=== PATIENT | male | born 1940 | race Caucasian/White ===

== ENCOUNTER 2017-03-17 09:24 | Inpatient (IN) | payer OTHER ==
[~2017-03-17] VITALS: Ht 170.2 cm; Wt 83.4 kg
[2017-03-17 09:58] LABS: Basophils % (auto) 0.2 % (0.0-2.0); Eosinophils # (auto) 0 uL; Hematocrit 32.1 % (41.0-53.0); Nucleated Red Blood Cells % 0.2 %; Platelet Count (auto) 178 10^3/uL (140-450); Red Cell Distribution Width 15.3 % (11.8-14.3)
[2017-03-17 10:02] LABS: Basophils # (auto) 0.2 uL; Hemoglobin 10.7 g/dL (13.5-17.5); Lymphocytes # (auto) 49.8 uL; Mean Corpuscular Hemoglobin 29.4 pg (28.0-32.0); Mean Corpuscular Hgb Conc. 33.5 g/dL (32.0-36.0); Mean Corpuscular Volume 87.9 fL (80.0-100.0); Monocytes # (auto) 1.3 uL; Monocytes % (auto) 2.1 % (0.0-12.0); Neutrophils # (auto) 12.4 uL; Neutrophils % (auto) 19.4 % (37.0-80.0); Red Blood Cells 3.65 10^6/uL (4.5-5.90)
[2017-03-17 10:09] LABS: Lymphocytes % (auto) 78.3 % (10.0-50.0)
[2017-03-17 10:12] LABS: White Blood Cell 63.6 10^3/uL (4.4-10.8)
[2017-03-17] MEDS ORDERED: IPRATROPIUM BROM 0.5 MG/2.5ML INH SOL NEB ONE ×2 (10:15→11:00)
[2017-03-17] MEDS ORDERED: ALBUTEROL SULF 2.5 MG/0.5ML(0.5%) NEB SOLN NEB ONE ×2 (10:15→11:00)
[2017-03-17 10:22] LABS: Albumin 3.2 g/dL (3.4-5.0); Calcium 7.7 mg/dL (8.5-10.1); Potassium 4.7 mmol/L (3.5-5.1); Total Protein 8.9 g/dL (6.4-8.2)
[2017-03-17] MEDS ORDERED: SODIUM CHLORIDE 0.9% 1,000 ML IV ONE (10:47)
[2017-03-17] MEDS ORDERED: methylPREDNISolone SOD SUCC 125 MG/2 ML VL IV ONE (11:00)
[2017-03-17 12:02] LABS: INR 1.16 (0.9-1.15); Partial Thromboplastin Time 33.8 sec (22.64-33.71); Prothrombin Time 12.7 sec (9.37-12.3)
[2017-03-17 12:05] LABS: Lactic Acid w/Reflex 2.3 mmol/L (0.4-2.0)
[2017-03-17 12:09] LABS: Bilirubin, Total 0.8 mg/dL (0.2-1.0)
[2017-03-17] MEDS ORDERED: PIPERACILLIN-TAZO 4.5GM 50 ML IV ONE (12:15)
[2017-03-17] MEDS ORDERED: SODIUM CHLORIDE 0.9% 1,000 ML IV SCH (12:38)
[2017-03-17] MEDS ORDERED: ACETAMINOPHEN 500 MG TAB PO PRN (12:45)
[2017-03-17] MEDS ORDERED: OSELTAMIVIR 75 MG CAP PO ONE (12:45)
[2017-03-17] MEDS ORDERED: LACTULOSE 20Gm/30ML SOLN PO PRN (12:45)
[2017-03-17] MEDS ORDERED: DEXTROSE (50%) 50ML SYRG IV PRN (12:45)
[2017-03-17] MEDS ORDERED: PANTOPRAZOLE 40 MG/10 ML VIAL IV ONE (12:45)
[2017-03-17] MEDS ORDERED: PIPERACILLIN-TAZOB 3.375GM 50 ML IV ONE (12:45)
[2017-03-17] MEDS ORDERED: AZITHROMYCIN 500MG/ 250ML 250 ML IV ONE (12:45)
[2017-03-17] MEDS ORDERED: TEMAZEPAM 15 MG CAP PO PRN (12:45)
[2017-03-17] MEDS ORDERED: LORazepam 0.5 MG TAB PO PRN (12:45)
[2017-03-17] MEDS ORDERED: NITROGLYCERIN 0.4 MG SL TAB SL PRN (12:45)
[2017-03-17] MEDS ORDERED: ENOXAPARIN SOD 80 MG/0.8ML SYRINGE SC ONE (12:45)
[2017-03-17] MEDS ORDERED: MORPHINE SULF INJ 2 MG/ML SYRINGE 1ML IV PRN (13:45)
[2017-03-17] MEDS: LINEZOLID 600MG/300ML 300 ML IV SCH ×2 (14:34→22:15)
[2017-03-17] MEDS: PROMETHAZINE HCL 25 MG/ML 1ML IV PRN (15:13)
[2017-03-17] MEDS: MORPHINE SULF INJ 2 MG/ML SYRINGE 1ML IV PRN ×2 (15:14→20:30)
[2017-03-17 16:24] LABS: Urine Amorphous Crystal FEW /hpf (None Seen); Urine Bacteria NONE SEEN /hpf (None Seen); Urine Blood 1+ /uL (Negative); Urine Hyaline Cast MOD /lpf (0 - 2); Urine Mucus FEW (None Seen); Urine Specific Gravity 1.022 (1.001-1.035); Urine WBC 7 /hpf (0 - 3)
[2017-03-17 16:39] LABS: CRP High Sensitivity 34.95 mg/dL (< 0.3)
[2017-03-17] MEDS: HYDROcodone-ACET 5/325MG TAB PO PRN (16:51)
[2017-03-17] MEDS: SODIUM CHLORIDE 0.9% 1,000 ML IV SCH (17:09)
[2017-03-17] MEDS: PIPERACILLIN-TAZOB 2.25GM 50 ML IV SCH (18:25)
[2017-03-17] MEDS: ACCU-CHEK COMFORT CURVE STRIP VI SCH (18:32)
[2017-03-17] MEDS: IPRATROPIUM BROM 0.5 MG/2.5ML INH SOL NEB SCH (18:53)
[2017-03-17] MEDS: ALBUTEROL SULF 2.5 MG/0.5ML(0.5%) NEB SOLN NEB SCH (18:54)
[2017-03-17 20:57] VITALS: BP 113/64
[2017-03-17] MEDS ORDERED: OSELTAMIVIR 75 MG CAP PO SCH (22:00)
[2017-03-18] MEDS: ALBUTEROL SULF 2.5 MG/0.5ML(0.5%) NEB SOLN NEB SCH ×4 (00:12→18:14)
[2017-03-18] MEDS: IPRATROPIUM BROM 0.5 MG/2.5ML INH SOL NEB SCH ×4 (00:12→18:14)
[2017-03-18] MEDS: PIPERACILLIN-TAZOB 2.25GM 50 ML IV SCH ×4 (00:14→17:30)
[2017-03-18] MEDS: ACCU-CHEK COMFORT CURVE STRIP VI SCH ×4 (00:14→17:30)
[2017-03-18] MEDS: MORPHINE SULF INJ 2 MG/ML SYRINGE 1ML IV PRN ×3 (00:36→21:11)
[2017-03-18] MEDS: HYDROcodone-ACET 5/325MG TAB PO PRN (00:56)
[2017-03-18] MEDS ORDERED: DIGOXIN (250MCG/ML) 2 ML AMPULE IV ONE ×2 (02:30→14:30)
[2017-03-18] MEDS: SODIUM CHLORIDE 0.9% 1,000 ML IV SCH ×3 (02:37→21:46)
[2017-03-18] MEDS ORDERED: AMIODARONE HCL 150 MG in D5W 5% 100 ML IV ONE (03:15)
[2017-03-18] MEDS ORDERED: AMIODARONE HCL 900 MG in DEXTROSE 500 ML IV SCH (03:20)
[2017-03-18] MEDS ORDERED: AMIODARONE HCL 900 MG IV ONE (03:20)
[2017-03-18] MEDS ORDERED: AMIODARONE HCL (50 MG/ ML) 3 ML VIAL IV ONE (03:21)
[2017-03-18 05:59] LABS: Hemoglobin 10.3 g/dL (13.5-17.5)
[2017-03-18 06:05] LABS: Hematocrit 31.5 % (41.0-53.0); Mean Corpuscular Hemoglobin 29.4 pg (28.0-32.0); Mean Corpuscular Hgb Conc. 32.8 g/dL (32.0-36.0); Mean Corpuscular Volume 89.8 fL (80.0-100.0); Platelet Count (auto) 172 10^3/uL (140-450); Red Blood Cells 3.51 10^6/uL (4.5-5.90); Red Cell Distribution Width 15.7 % (11.8-14.3)
[2017-03-18 06:12] LABS: White Blood Cell 44.7 10^3/uL (4.4-10.8)
[2017-03-18 06:13] LABS: Basophils % (manual) 0 (0.0-2.0); Blast Cells 0; Eosinophils % (manual) 0 (0-7); Metamyelocytes % 0; Myelocytes % 0; Promyelocytes % 0; Reactive Lymphocytes 0
[2017-03-18 06:26] LABS: Albumin 2.8 g/dL (3.4-5.0); Bilirubin, Total 0.7 mg/dL (0.2-1.0); Calcium 7.5 mg/dL (8.5-10.1); Potassium 4.3 mmol/L (3.5-5.1); Total Protein 8.4 g/dL (6.4-8.2)
[2017-03-18 07:00] LABS: Band Neutrophils % (manual) 6; Lymphocytes % (manual) 74 (10.0-50.0); Monocytes % (manual) 4 (0-12)
[2017-03-18] MEDS: AMIODARONE HCL 900 MG in DEXTROSE 500 ML IV SCH (09:20)
[2017-03-18] MEDS: ENOXAPARIN SOD 40 MG/0.4 ML SYRINGE SC SCH (09:47)
[2017-03-18] MEDS: PANTOPRAZOLE 40 MG TAB PO SCH (09:48)
[2017-03-18] MEDS: ASPirin 81 mg TAB PO SCH (09:49)
[2017-03-18] MEDS: AZITHROMYCIN 500MG/ 250ML 250 ML IV SCH (09:49)
[2017-03-18] MEDS: LINEZOLID 600MG/300ML 300 ML IV SCH ×2 (09:49→21:51)
[2017-03-18] MEDS ORDERED: OSELTAMIVIR 30 MG CAP PO SCH (10:00)
[2017-03-18] MEDS ORDERED: ASPI81TA27 PO (15:01)
[2017-03-18] MEDS ORDERED: CITA10TA70 PO (15:01)
[2017-03-18] MEDS ORDERED: SIMV-13 PO (15:01)
[2017-03-18] MEDS ORDERED: TAMS0.4C36 PO (15:01)
[2017-03-18] MEDS ORDERED: FENO160T8 PO (15:01)
[2017-03-18] MEDS ORDERED: TRAM50TA2 PO (15:01)
[2017-03-18] MEDS ORDERED: LISI-646 PO (15:01)
[2017-03-18] MEDS ORDERED: LEVO200T45 PO (15:01)
[2017-03-19] MEDS: IPRATROPIUM BROM 0.5 MG/2.5ML INH SOL NEB SCH ×5 (00:01→23:59)
[2017-03-19] MEDS: ALBUTEROL SULF 2.5 MG/0.5ML(0.5%) NEB SOLN NEB SCH ×4 (00:01→19:45)
[2017-03-19] MEDS: ACCU-CHEK COMFORT CURVE STRIP VI SCH ×4 (00:44→18:29)
[2017-03-19] MEDS: PIPERACILLIN-TAZOB 2.25GM 50 ML IV SCH ×5 (00:48→23:59)
[2017-03-19 06:39] LABS: Hemoglobin 10.6 g/dL (13.5-17.5)
[2017-03-19 06:42] LABS: Hematocrit 31.5 % (41.0-53.0); Mean Corpuscular Hemoglobin 29.8 pg (28.0-32.0); Mean Corpuscular Hgb Conc. 33.7 g/dL (32.0-36.0); Mean Corpuscular Volume 88.5 fL (80.0-100.0); Platelet Count (auto) 212 10^3/uL (140-450); Red Blood Cells 3.56 10^6/uL (4.5-5.90); Red Cell Distribution Width 15.7 % (11.8-14.3)
[2017-03-19 06:44] LABS: White Blood Cell 32.4 10^3/uL (4.4-10.8)
[2017-03-19 06:45] LABS: Basophils % (manual) 0 (0.0-2.0); Blast Cells 0; Eosinophils % (manual) 0 (0-7); Metamyelocytes % 0; Myelocytes % 0; Promyelocytes % 0; Reactive Lymphocytes 0
[2017-03-19 06:58] LABS: BUN/Creatinine Ratio 32.9; Calcium 7.8 mg/dL (8.5-10.1); Potassium 4.5 mmol/L (3.5-5.1)
[2017-03-19 08:38] LABS: Band Neutrophils % (manual) 4; Lymphocytes % (manual) 75 (10.0-50.0); Monocytes % (manual) 1 (0-12)
[2017-03-19] MEDS: SODIUM CHLORIDE 0.9% 1,000 ML IV SCH ×2 (09:14→21:31)
[2017-03-19] MEDS: AMIODARONE HCL 900 MG in DEXTROSE 500 ML IV SCH (09:29)
[2017-03-19] MEDS: PANTOPRAZOLE 40 MG TAB PO SCH (10:01)
[2017-03-19] MEDS: AZITHROMYCIN 500MG/ 250ML 250 ML IV SCH (10:01)
[2017-03-19] MEDS: ENOXAPARIN SOD 40 MG/0.4 ML SYRINGE SC SCH (10:01)
[2017-03-19] MEDS: ASPirin 81 mg TAB PO SCH (10:01)
[2017-03-19] MEDS: LINEZOLID 600MG/300ML 300 ML IV SCH ×2 (10:20→22:01)
[2017-03-19] MEDS: PROMETHAZINE HCL 25 MG/ML 1ML IV PRN (13:30)
[2017-03-19] MEDS: MORPHINE SULF INJ 2 MG/ML SYRINGE 1ML IV PRN ×2 (13:30→22:06)
[2017-03-19] MEDS ORDERED: MORPHINE SULF INJ 2 MG/ML SYRINGE 1ML IV PRN (15:00)
[2017-03-19] MEDS: AMIODARONE HCL 200 MG TAB PO SCH ×2 (16:06→22:01)
[2017-03-19 19:30] VITALS: BP 128/69
[2017-03-20] MEDS: ACCU-CHEK COMFORT CURVE STRIP VI SCH ×4 (00:01→18:15)
[2017-03-20] MEDS: IPRATROPIUM BROM 0.5 MG/2.5ML INH SOL NEB SCH ×3 (00:50→18:00)
[2017-03-20] MEDS: ALBUTEROL SULF 2.5 MG/0.5ML(0.5%) NEB SOLN NEB SCH ×4 (00:50→18:00)
[2017-03-20] MEDS: SODIUM CHLORIDE 0.9% 1,000 ML IV SCH ×2 (04:40→15:00)
[2017-03-20 04:54] VITALS: BP 134/69
[2017-03-20] MEDS: PIPERACILLIN-TAZOB 2.25GM 50 ML IV SCH (05:20)
[2017-03-20 07:19] LABS: BUN/Creatinine Ratio 25.2; Calcium 7.7 mg/dL (8.5-10.1); Potassium 4.4 mmol/L (3.5-5.1)
[2017-03-20 08:00] VITALS: BP 135/78
[2017-03-20] MEDS: LINEZOLID 600MG/300ML 300 ML IV SCH ×2 (09:00→21:35)
[2017-03-20] MEDS: AMIODARONE HCL 200 MG TAB PO SCH ×2 (09:01→21:36)
[2017-03-20] MEDS: PANTOPRAZOLE 40 MG TAB PO SCH (09:01)
[2017-03-20] MEDS: ASPirin 81 mg TAB PO SCH (09:01)
[2017-03-20] MEDS: ENOXAPARIN SOD 40 MG/0.4 ML SYRINGE SC SCH (09:02)
[2017-03-20 09:18] VITALS: BP 135/78
[2017-03-20] MEDS: AZITHROMYCIN 500MG/ 250ML 250 ML IV SCH (10:57)
[2017-03-20 12:21] VITALS: BP 138/74
[2017-03-20] MEDS: PIPERACILLIN-TAZOB 3.375GM 50 ML IV SCH ×2 (13:18→18:14)
[2017-03-20 17:28] VITALS: BP 133/74
[2017-03-20 22:32] VITALS: BP 119/68
[2017-03-21] VITALS (8 sets, daily range): BP systolic 109–135; BP diastolic 54–75
[2017-03-21] MEDS: PIPERACILLIN-TAZOB 3.375GM 50 ML IV SCH ×5 (00:02→23:58)
[2017-03-21] MEDS: ACCU-CHEK COMFORT CURVE STRIP VI SCH ×5 (00:24→23:29)
[2017-03-21] MEDS: IPRATROPIUM BROM 0.5 MG/2.5ML INH SOL NEB SCH ×5 (00:48→23:36)
[2017-03-21] MEDS: ALBUTEROL SULF 2.5 MG/0.5ML(0.5%) NEB SOLN NEB SCH ×5 (00:48→23:36)
[2017-03-21] MEDS: SODIUM CHLORIDE 0.9% 1,000 ML IV SCH ×3 (05:17→21:17)
[2017-03-21 07:22] LABS: Hematocrit 32.5 % (41.0-53.0); Hemoglobin 10.4 g/dL (13.5-17.5); Mean Corpuscular Hemoglobin 28.8 pg (28.0-32.0); Mean Corpuscular Hgb Conc. 31.9 g/dL (32.0-36.0); Mean Corpuscular Volume 90.4 fL (80.0-100.0); Platelet Count (auto) 302 10^3/uL (140-450)
[2017-03-21 07:27] LABS: BUN/Creatinine Ratio 18.7; Calcium 7.7 mg/dL (8.5-10.1); Magnesium 2.9 mg/dL (1.6-2.6); Potassium 4.9 mmol/L (3.5-5.1)
[2017-03-21 07:33] LABS: White Blood Cell 46.2 10^3/uL (4.4-10.8)
[2017-03-21 07:35] LABS: Band Neutrophils % (manual) 0; Basophils % (manual) 0 (0.0-2.0); Blast Cells 0; Eosinophils % (manual) 0 (0-7); Metamyelocytes % 0; Myelocytes % 0; Promyelocytes % 0; Reactive Lymphocytes 0
[2017-03-21] MEDS: AMIODARONE HCL 200 MG TAB PO SCH ×2 (09:09→21:16)
[2017-03-21] MEDS: PANTOPRAZOLE 40 MG TAB PO SCH (09:09)
[2017-03-21] MEDS: ENOXAPARIN SOD 40 MG/0.4 ML SYRINGE SC SCH (09:10)
[2017-03-21] MEDS: ASPirin 81 mg TAB PO SCH (09:10)
[2017-03-21] MEDS: LINEZOLID 600MG/300ML 300 ML IV SCH ×2 (09:11→21:15)
[2017-03-21] MEDS: AZITHROMYCIN 500MG/ 250ML 250 ML IV SCH (10:59)
[2017-03-21 11:11] LABS: Lymphocytes % (manual) 76 (10.0-50.0); Monocytes % (manual) 1 (0-12)
[2017-03-21] MEDS ORDERED: LORazepam 2MG/ML-1ML VIAL IV PRN (19:00)
[2017-03-21] MEDS ORDERED: ATORVASTATIN 20 MG TAB PO SCH (22:00)
[2017-03-22] MEDS: ALBUTEROL SULF 2.5 MG/0.5ML(0.5%) NEB SOLN NEB PRN ×2 (02:40→13:15)
[2017-03-22 05:00] VITALS: BP 132/72
[2017-03-22] MEDS: PIPERACILLIN-TAZOB 3.375GM 50 ML IV SCH ×2 (05:33→12:00)
[2017-03-22] MEDS: ACCU-CHEK COMFORT CURVE STRIP VI SCH ×2 (05:39→12:00)
[2017-03-22] MEDS: SODIUM CHLORIDE 0.9% 1,000 ML IV SCH (06:35)
[2017-03-22] MEDS: ALBUTEROL SULF 2.5 MG/0.5ML(0.5%) NEB SOLN NEB SCH ×2 (06:35→10:01)
[2017-03-22] MEDS: IPRATROPIUM BROM 0.5 MG/2.5ML INH SOL NEB SCH ×2 (06:35→10:01)
[2017-03-22 08:00] VITALS: BP 140/72
[2017-03-22 08:28] VITALS: BP 140/72
[2017-03-22] MEDS: LINEZOLID 600MG/300ML 300 ML IV SCH (10:00)
[2017-03-22] MEDS: AMIODARONE HCL 200 MG TAB PO SCH (10:27)
[2017-03-22] MEDS: AZITHROMYCIN 500MG/ 250ML 250 ML IV SCH (10:27)
[2017-03-22] MEDS: PANTOPRAZOLE 40 MG TAB PO SCH (10:27)
[2017-03-22] MEDS: ENOXAPARIN SOD 40 MG/0.4 ML SYRINGE SC SCH (10:27)
[2017-03-22] MEDS: ASPirin 81 mg TAB PO SCH (10:27)
[2017-03-22 11:48] VITALS: BP 132/66
[2017-03-22 13:59] VITALS: BP 140/72
== END 2017-03-22 15:30 | disposition home or self-care (01) | DRG 871 ==
LOC: ER 09:24 → EDBD 09:24 → TELE 09:25 → TELE-EAST 03-19 18:22
PROVIDERS: ADMIT Internal Medicine; ATTEND Internal Medicine
DX: A41.9 Sepsis, unspecified organism (principal); J18.9 Pneumonia, unspecified organism; J96.01 Acute respiratory failure with hypoxia; N17.0 Acute kidney failure with tubular necrosis; G93.41 Metabolic encephalopathy; C91.10 Chronic lymphocytic leukemia of B-cell type not having achieved remission; E11.21 Type 2 diabetes mellitus with diabetic nephropathy; I48.91 Unspecified atrial fibrillation; E87.2 Acidosis; J44.0 Chronic obstructive pulmonary disease with (acute) lower respiratory infection; J44.1 Chronic obstructive pulmonary disease with (acute) exacerbation; E87.1 Hypo-osmolality and hyponatremia; E11.22 Type 2 diabetes mellitus with diabetic chronic kidney disease; D64.9 Anemia, unspecified; N32.89 Other specified disorders of bladder; K57.30 Diverticulosis of large intestine without perforation or abscess without bleeding; E78.5 Hyperlipidemia, unspecified; F41.9 Anxiety disorder, unspecified; F32.9 Major depressive disorder, single episode, unspecified; I12.9 Hypertensive chronic kidney disease with stage 1 through stage 4 chronic kidney disease, or unspecified chronic kidney disease; N18.9 Chronic kidney disease, unspecified; Z79.82 Long term (current) use of aspirin; Z79.899 Other long term (current) drug therapy; Z87.820 Personal history of traumatic brain injury; Z87.891 Personal history of nicotine dependence
CPT/HCPCS: 36415; 36600; 70450; 71045; 74176; 76775; 78582; 80048; 80053; 80061; 81001; 82150; 82550; 82805; 82962; 83036; 83605; 83690; 83735; 83880; 84443; 84484; 85007; 85025; 85027; 85379; 85610; 85652; 85730; 86141; 87040; 87400; 93005; 93306; 93970; 94640; 94761; 96361; 96374; C9113; J2543; J7060

== ENCOUNTER 2023-09-15 08:40 | Inpatient (IN) | payer OTHER ==
[~2023-09-15] VITALS: Ht 170.2 cm; Wt 95.7 kg
[~2023-09-15 08:40] MED LIST: ASPI-543 PO; CITA10TA5 PO; FENO160T PO; LEVO200T7 PO; LISI20TA56 PO; SIMV40TA18 PO; TAMS0.4C36 PO; TRAM50TA2 PO
[2023-09-15 10:07] LABS: Hematocrit 29.2 % (41.0-53.0); Hemoglobin 9.6 g/dL (13.5-17.5); Mean Corpuscular Hemoglobin 32.5 pg (28.0-32.0); Mean Corpuscular Volume 98.6 fL (80.0-100.0); Red Blood Cells 2.97 10^6/uL (4.5-5.90); Red Cell Distribution Width 18.2 % (11.8-14.3)
[2023-09-15 10:09] LABS: Alanine Aminotransferase 14 U/L (7-40); Albumin 4.2 g/dL (3.2-4.8); Alkaline Phosphatase 65 U/L (46-116); Anion Gap 10 (5-15); Aspartate Aminotransferase 25 U/L (13-40); BUN/Creatinine Ratio 13.1 (10.0-20.0); Bilirubin, Total 1.6 mg/dL (0.2-1.0); Blood Urea Nitrogen 22 mg/dL (9-23); Calcium 9.2 mg/dL (8.5-10.1); Carbon Dioxide 23 mmol/L (20-30); Chloride 107 mmol/L (98-107); Glucose 103 mg/dL (74-106); Potassium 4.6 mmol/L (3.5-5.1); Sodium 140 mmol/L (136-145); Total Protein 5.8 g/dL (5.7-8.2)
[2023-09-15 10:13] VITALS: PULSE 123; RESP 18; O2SAT 95
[2023-09-15 10:14] LABS: Band Neutrophils % (manual) 0; Basophils % (manual) 0 (0.0-2.0); Blast Cells 0; Metamyelocytes % 0; Myelocytes % 0; Promyelocytes % 0; Reactive Lymphocytes 0
[2023-09-15] MEDS: CLINDAMYCIN 600MG IV 50 ML IV ONE (10:23)
[2023-09-15] MEDS: SODIUM CHLORIDE 0.9% 2,000 ML IV ONE (10:46)
[2023-09-15] MEDS: cefTRIAXone 1GM/50ML D5W 50 ML IV ONE (11:37)
[2023-09-15] MEDS ORDERED: MORPHINE SULFATE INJ 2 MG/ml SYRG IV PRN (12:00)
[2023-09-15] MEDS ORDERED: NITROGLYCERIN 0.4 MG SL TAB SL PRN (12:00)
[2023-09-15] MEDS ORDERED: METOPROLOL TARTRATE 25 MG TAB PO SCH (12:00)
[2023-09-15 12:19] LABS: Urine Bacteria None Seen /hpf (None Seen)
[2023-09-15 12:19] LABS: Eosinophils % (manual) 1 (0-7); Lymphocytes % (manual) 87 (10.0-50.0); Monocytes % (manual) 3 (0-12); Platelet Estimate Decreased; Smudge Cells 13 /100 WBC
[2023-09-15 12:34] LABS: Folate (Folic Acid) 8.04 ng/mL (>5.38)
[2023-09-15 12:46] LABS: Creatinine, Urine 161.49 mg/dL (30.0-125.0)
[2023-09-15 12:54] LABS: Urine Blood TRACE /uL (Negative); Urine Clarity Clear (Clear); Urine Color Yellow (Yellow); Urine Mucus FEW (None Seen); Urine Protein, UAD 1+ (Negative); Urine Specific Gravity 1.021 (1.001-1.035); Urine Urobilinogen Normal (Negative); Urine WBC 2 /hpf (0 - 3); Urine pH 5.5 (5.0-9.0)
[2023-09-15 12:56] LABS: INR 1.08 (0.9-1.15); Prothrombin Time 11.4 sec (9.3-11.8)
[2023-09-15 13:49] LABS: % Iron Saturation 34.4 % (20-55)
[2023-09-15] MEDS: CLINDAMYCIN 900MG IV 50 ML IV SCH (14:48)
[2023-09-15 16:38] LABS: Magnesium 2.1 mg/dL (1.6-2.6)
[2023-09-15] MEDS: TAMSULOSIN HYDROCHLORIDE 0.4 MG CAP PO SCH (18:07)
[2023-09-15] MEDS: FUROSEMIDE 20 MG/2 ML VIAL IV SCH (18:08)
[2023-09-15] MEDS: ATENOLOL 25 MG TAB PO ONE (18:10)
[2023-09-15 18:35] LABS: Free T3 2.06 pg/mL (2.3-4.2); Free T4 (Free Thyroxine) 1.46 ng/dL (0.89-1.76)
[2023-09-15 21:00] VITALS: BP 120/72; PULSE 120; RESP 72; TEMP 97.6; O2SAT 97
[2023-09-15 21:27] VITALS: PULSE 119
[2023-09-15] MEDS ORDERED: CARVEDILOL 12.5 MG TAB PO SCH (22:00)
[2023-09-15] MEDS: ATORVASTATIN 20 MG TAB PO SCH (22:16)
[2023-09-16] VITALS (8 sets, daily range): BP systolic 98–121; BP diastolic 51–74; PULSE 93–117; RESP 18–20; TEMP 97.2–97.8; O2SAT 93–100
[2023-09-16] MEDS ORDERED: LEVO25TA2 PO (01:13)
[2023-09-16] MEDS ORDERED: TRIA0.5O2 TOP (01:13)
[2023-09-16] MEDS ORDERED: ATOR40TA52 PO (01:13)
[2023-09-16] MEDS ORDERED: METO1TAB9 PO (01:13)
[2023-09-16] MEDS ORDERED: GABA-1308 PO (01:15)
[2023-09-16 06:04] LABS: Hemoglobin 9.2 g/dL (13.5-17.5); Mean Corpuscular Hemoglobin 32.1 pg (28.0-32.0)
[2023-09-16 06:06] LABS: Hematocrit 28.3 % (41.0-53.0); Mean Corpuscular Hgb Conc. 32.3 g/dL (32.0-36.0); Mean Corpuscular Volume 99.2 fL (80.0-100.0); Red Blood Cells 2.86 10^6/uL (4.5-5.90); Red Cell Distribution Width 18.8 % (11.8-14.3)
[2023-09-16 06:22] LABS: White Blood Cell 35.8 10^3/uL (4.4-10.8)
[2023-09-16 06:24] LABS: Band Neutrophils % (manual) 0; Basophils % (manual) 0 (0.0-2.0); Blast Cells 0; Eosinophils % (manual) 0 (0-7); Metamyelocytes % 0; Myelocytes % 0; Promyelocytes % 0; Reactive Lymphocytes 0
[2023-09-16 06:26] LABS: Alanine Aminotransferase 11 U/L (7-40); Albumin 3.9 g/dL (3.2-4.8); Alkaline Phosphatase 55 U/L (46-116); Anion Gap 7 (5-15); Aspartate Aminotransferase 24 U/L (13-40); BUN/Creatinine Ratio 10.8 (10.0-20.0); Bilirubin, Total 1.1 mg/dL (0.2-1.0); Blood Urea Nitrogen 20 mg/dL (9-23); Calcium 9.1 mg/dL (8.7-10.4); Carbon Dioxide 24 mmol/L (20-30); Chloride 106 mmol/L (98-107); Glucose 191 mg/dL (74-106); Potassium 4.9 mmol/L (3.5-5.1); Sodium 137 mmol/L (136-145)
[2023-09-16 07:05] LABS: Total Protein 5.9 g/dL (5.7-8.2)
[2023-09-16 08:35] LABS: Lymphocytes % (manual) 87 (10.0-50.0); Monocytes % (manual) 2 (0-12); Platelet Estimate Decreased
[2023-09-16] MEDS: ATENOLOL 25 MG TAB PO SCH (09:58)
[2023-09-16 16:54] LABS: Hemoglobin 9.5 g/dL (13.5-17.5)
[2023-09-16 16:55] LABS: Hematocrit 29.3 % (41.0-53.0); Mean Corpuscular Hemoglobin 32.2 pg (28.0-32.0); Mean Corpuscular Hgb Conc. 32.5 g/dL (32.0-36.0); Mean Corpuscular Volume 99.2 fL (80.0-100.0); Red Blood Cells 2.95 10^6/uL (4.5-5.90); Red Cell Distribution Width 18.3 % (11.8-14.3)
[2023-09-16 17:01] LABS: White Blood Cell 42.5 10^3/uL (4.4-10.8)
[2023-09-16 17:02] LABS: Band Neutrophils % (manual) 0; Basophils % (manual) 0 (0.0-2.0); Blast Cells 0; Metamyelocytes % 0; Myelocytes % 0; Promyelocytes % 0; Reactive Lymphocytes 0
[2023-09-16] MEDS: FUROSEMIDE 40 MG/4 ML VIAL IV SCH (17:17)
[2023-09-16 17:24] LABS: Eosinophils % (manual) 1 (0-7); Lymphocytes % (manual) 86 (10.0-50.0); Monocytes % (manual) 3 (0-12); Platelet Estimate Decreased
[2023-09-17] VITALS (7 sets, daily range): BP systolic 97–140; BP diastolic 50–85; PULSE 59–107; RESP 18–21; TEMP 97.5–98.6; O2SAT 92–100
[2023-09-17 07:12] LABS: Basophils % (auto) 0.1 % (0.0-2.0); Eosinophils # (auto) 0.1 10 ^3/uL (0-0.8); Hematocrit 28.7 % (41.0-53.0); Hemoglobin 9.3 g/dL (13.5-17.5); Monocytes # (auto) 0.9 10 ^3/uL (0-1.3); Nucleated Red Blood Cells % 0.2 %
[2023-09-17 07:14] LABS: Basophils # (auto) 0.1 10 ^3/uL (0-0.2); Eosinophils % (auto) 0.2 % (0.0-7.0); Lymphocytes # (auto) 39.9 10 ^3/uL (0.4-5.4); Mean Corpuscular Hgb Conc. 32.2 g/dL (32.0-36.0); Mean Corpuscular Volume 99.1 fL (80.0-100.0); Monocytes % (auto) 2.1 % (0.0-12.0); Neutrophils # (auto) 3.8 10 ^3/uL (1.6-8.6); Neutrophils % (auto) 8.5 % (37.0-80.0); Red Blood Cells 2.89 10^6/uL (4.5-5.90); Red Cell Distribution Width 18.3 % (11.8-14.3)
[2023-09-17 07:23] LABS: Lymphocytes % (auto) 89.1 % (10.0-50.0)
[2023-09-17 07:24] LABS: White Blood Cell 44.8 10^3/uL (4.4-10.8)
[2023-09-17 07:33] LABS: Alanine Aminotransferase 12 U/L (7-40); Alkaline Phosphatase 58 U/L (46-116); Anion Gap 8 (5-15); BUN/Creatinine Ratio 13.1 (10.0-20.0); Blood Urea Nitrogen 27 mg/dL (9-23); Calcium 9.2 mg/dL (8.5-10.1); Carbon Dioxide 25 mmol/L (20-30); Chloride 102 mmol/L (98-107); Glucose 110 mg/dL (74-106); Potassium 4.5 mmol/L (3.5-5.1); Sodium 135 mmol/L (136-145)
[2023-09-17 07:34] LABS: Albumin 4.2 g/dL (3.2-4.8); Aspartate Aminotransferase 26 U/L (13-40)
[2023-09-17 07:35] LABS: Bilirubin, Total 1.1 mg/dL (0.2-1.0); Total Protein 6.1 g/dL (5.7-8.2)
[2023-09-17] MEDS: ATENOLOL 25 MG TAB PO SCH (09:23)
[2023-09-17] MEDS: FUROSEMIDE 40 MG/4 ML VIAL IV ONE (10:32)
[2023-09-17] MEDS ORDERED: ACETAMINOPHEN 325 MG TAB PO PRN (16:45)
[2023-09-17] MEDS: HYDROcodone-ACET 5/325MG TAB PO PRN (17:51)
[2023-09-18] VITALS (9 sets, daily range): BP systolic 98–103; BP diastolic 48–66; PULSE 80–111; RESP 15–19; TEMP 97.8–98.3; O2SAT 93–99
[2023-09-18 07:38] LABS: Anion Gap 7 (5-15); Carbon Dioxide 24 mmol/L (20-30); Chloride 101 mmol/L (98-107); Potassium 4.7 mmol/L (3.5-5.1); Sodium 132 mmol/L (136-145)
[2023-09-18 07:39] LABS: Calcium 9.1 mg/dL (8.7-10.4)
[2023-09-18 07:44] LABS: Blood Urea Nitrogen 34 mg/dL (9-23); Glucose 124 mg/dL (74-106)
[2023-09-18] MEDS: FUROSEMIDE 40 MG TAB PO ONE (10:15)
[2023-09-18] MEDS: FUROSEMIDE 40 MG TAB PO SCH (18:04)
[2023-09-19] VITALS (7 sets, daily range): BP systolic 104–118; BP diastolic 5–75; PULSE 81–95; RESP 18–19; TEMP 97.3–97.9; O2SAT 94–100
[2023-09-19 07:14] LABS: Chloride 99 mmol/L (98-107); Potassium 4.8 mmol/L (3.5-5.1); Sodium 131 mmol/L (136-145)
[2023-09-19 07:15] LABS: Anion Gap 11 (5-15); Carbon Dioxide 21 mmol/L (20-30)
[2023-09-19 07:20] LABS: BUN/Creatinine Ratio 15.3 (10.0-20.0); Blood Urea Nitrogen 33 mg/dL (9-23); Glucose 117 mg/dL (74-106)
[2023-09-19] MEDS: ATENOLOL 25 MG TAB PO SCH (10:53)
[2023-09-19] MEDS: FUROSEMIDE 20 MG/2 ML VIAL IV ONE (17:17)
[2023-09-20 01:00] VITALS: BP 103/62; PULSE 93; RESP 18; TEMP 97.4; O2SAT 99
[2023-09-20 05:00] VITALS: BP 100/57; PULSE 95; RESP 17; TEMP 97.4; O2SAT 96
[2023-09-20] MEDS: FUROSEMIDE 20 MG/2 ML VIAL IV SCH (05:48)
[2023-09-20 06:53] LABS: Hematocrit 27.7 % (41.0-53.0); Hemoglobin 9.2 g/dL (13.5-17.5); Mean Corpuscular Hemoglobin 32.7 pg (28.0-32.0); Mean Corpuscular Hgb Conc. 33.4 g/dL (32.0-36.0); Mean Corpuscular Volume 98.1 fL (80.0-100.0); Red Blood Cells 2.82 10^6/uL (4.5-5.90); Red Cell Distribution Width 17.8 % (11.8-14.3)
[2023-09-20 06:57] LABS: Anion Gap 7 (5-15); Carbon Dioxide 27 mmol/L (20-30); Chloride 100 mmol/L (98-107); Potassium 4.2 mmol/L (3.5-5.1); Sodium 134 mmol/L (136-145)
[2023-09-20 06:59] LABS: Calcium 8.9 mg/dL (8.7-10.4)
[2023-09-20 07:02] LABS: Glucose 143 mg/dL (74-106)
[2023-09-20 07:04] LABS: BUN/Creatinine Ratio 16.8 (10.0-20.0); Blood Urea Nitrogen 39 mg/dL (9-23); Magnesium 2.2 mg/dL (1.6-2.6)
[2023-09-20 07:15] LABS: White Blood Cell 49.7 10^3/uL (4.4-10.8)
[2023-09-20 07:16] LABS: Band Neutrophils % (manual) 0; Basophils % (manual) 0 (0.0-2.0); Blast Cells 0; Eosinophils % (manual) 0 (0-7); Metamyelocytes % 0; Myelocytes % 0; Promyelocytes % 0; Reactive Lymphocytes 0
[2023-09-20 08:00] VITALS: PULSE 88; PULSE 89; RESP 18; O2SAT 95
[2023-09-20 08:07] LABS: Lymphocytes % (manual) 86 (10.0-50.0); Monocytes % (manual) 5 (0-12); Smudge Cells 6 /100 WBC
[2023-09-20 08:08] LABS: Platelet Estimate Markedly Decreased
[2023-09-20] MEDS ORDERED: FURO1TAB31 PO (08:46)
[2023-09-20 09:23] VITALS: BP 105/62; PULSE 88; RESP 1; TEMP 36.3; O2SAT 100
[2023-09-20 10:18] VITALS: BP 105/62; PULSE 88; RESP 18; TEMP 97.4; O2SAT 100
== END 2023-09-20 10:51 | disposition home or self-care (01) | DRG 602 ==
LOC: ER 08:40 → TELE 12:03 → TELE-CENTR 21:30
PROVIDERS: ADMIT Nurse Practitioner Family; ATTEND Internal Medicine Geriatric Medicine
DX: L03.116 Cellulitis of left lower limb (principal); I50.33 Acute on chronic diastolic (congestive) heart failure; I13.0 Hypertensive heart and chronic kidney disease with heart failure and stage 1 through stage 4 chronic kidney disease, or unspecified chronic kidney disease; N17.9 Acute kidney failure, unspecified; I48.19 Other persistent atrial fibrillation; C91.10 Chronic lymphocytic leukemia of B-cell type not having achieved remission; L03.115 Cellulitis of right lower limb; E03.9 Hypothyroidism, unspecified; N18.9 Chronic kidney disease, unspecified; E66.9 Obesity, unspecified; I87.2 Venous insufficiency (chronic) (peripheral); I07.1 Rheumatic tricuspid insufficiency; F32.A Depression, unspecified; E78.00 Pure hypercholesterolemia, unspecified; Z60.2 Problems related to living alone; Z85.828 Personal history of other malignant neoplasm of skin; Z98.42 Cataract extraction status, left eye; Z98.41 Cataract extraction status, right eye; Z68.33 Body mass index [BMI] 33.0-33.9, adult
CPT/HCPCS: 36415; 71045; 80048; 80053; 80061; 81001; 82270; 82570; 82607; 82728; 82746; 83036; 83540; 83550; 83605; 83615; 83735; 83880; 84300; 84439; 84443; 84481; 84484; 85007; 85025; 85027; 85045; 85362; 85379; 85384; 85610; 86850; 86880; 86900; 86901; 87040; 93005; 93306; 93970; 97110; 97116; 97163; 97530; G0378; J3490

== ENCOUNTER 2023-09-26 11:50 | Inpatient (IN) | payer OTHER ==
[~2023-09-26] VITALS: Ht 165.1 cm; Wt 90.0 kg
[~2023-09-26 11:50] MED LIST changes: +ATOR40TA52 PO; -FENO160T PO; +FURO1TAB31 PO; +GABA-1308 PO; +LEVO25TA2 PO; -LISI20TA56 PO; +METO1TAB9 PO; -SIMV40TA18 PO; +TRIA0.5O2 TOP
[2023-09-26] MEDS: ASPirin 81 mg TAB PO ONE (12:13)
[2023-09-26 12:34] LABS: Hematocrit 24.7 % (41.0-53.0); Hemoglobin 8.2 g/dL (13.5-17.5); Mean Corpuscular Hemoglobin 32.9 pg (28.0-32.0); Mean Corpuscular Hgb Conc. 33.2 g/dL (32.0-36.0); Mean Corpuscular Volume 99.2 fL (80.0-100.0); Red Blood Cells 2.49 10^6/uL (4.5-5.90); Red Cell Distribution Width 18.8 % (11.8-14.3); White Blood Cell 22.3 10^3/uL (4.4-10.8)
[2023-09-26 12:39] LABS: Basophils % (manual) 0 (0.0-2.0); Blast Cells 0; Eosinophils % (manual) 0 (0-7); Metamyelocytes % 0; Myelocytes % 0; Promyelocytes % 0
[2023-09-26] MEDS: NOREPINEPHRINE 8 MG/250ML KIT 250 ML IV SCH (12:40)
[2023-09-26] MEDS: SODIUM CHLORIDE 0.9% 1,000 ML IV ONE (12:40)
[2023-09-26 12:41] LABS: Chloride 104 mmol/L (98-107); Potassium 4.2 mmol/L (3.5-5.1); Sodium 136 mmol/L (136-145)
[2023-09-26 12:42] LABS: Anion Gap 7 (5-15); Calcium 8.9 mg/dL (8.7-10.4); Carbon Dioxide 25 mmol/L (20-30)
[2023-09-26 12:47] LABS: BUN/Creatinine Ratio 23.3 (10.0-20.0); Blood Urea Nitrogen 47 mg/dL (9-23); Glucose 127 mg/dL (74-106)
[2023-09-26 12:48] LABS: Magnesium 2.2 mg/dL (1.6-2.6)
[2023-09-26] MEDS: NOREPINEPHRINE 8 MG/250ML KIT 250 ML IV ONE (12:55)
[2023-09-26 12:59] LABS: Band Neutrophils % (manual) 1; Lymphocytes % (manual) 84 (10.0-50.0); Monocytes % (manual) 3 (0-12); Reactive Lymphocytes 2
[2023-09-26 13:00] LABS: Anisocytosis Slight; Platelet Estimate Markedly Decreased
[2023-09-26] MEDS: FUROSEMIDE 20 MG/2 ML VIAL IV ONE (13:00)
[2023-09-26] MEDS: cefTRIAXone 1GM/50ML D5W 50 ML IV ONE (13:45)
[2023-09-26] MEDS: VANCOMYCIN 1GM/200ML 200 ML IV ONE (14:44)
[2023-09-26] MEDS ORDERED: DOCUSATE SOD 100 MG CAP PO PRN (15:00)
[2023-09-26] MEDS ORDERED: ACETAMINOPHEN 325 MG TAB PO PRN (15:00)
[2023-09-26] MEDS ORDERED: ONDANSETRON HCL 4 MG/2 ML VIAL IV PRN (15:00)
[2023-09-26] MEDS ORDERED: HYDROmorphone HCL 2 MG/ML VL/or syr IV PRN (15:00)
[2023-09-26] MEDS: PIPERACILLIN-TAZOB 3.375GM 100 ML IV SCH (15:57)
[2023-09-26] MEDS: TAMSULOSIN HYDROCHLORIDE 0.4 MG CAP PO SCH (18:16)
[2023-09-26 19:56] LABS: Urine Bacteria None Seen /hpf (None Seen)
[2023-09-26 20:04] LABS: Urine Blood Negative /uL (Negative); Urine Clarity Clear (Clear); Urine Color Light-Yellow (Yellow); Urine Protein, UAD Negative (Negative); Urine Specific Gravity 1.012 (1.001-1.035); Urine Urobilinogen Normal (Negative); Urine WBC 2 /hpf (0 - 3)
[2023-09-26 20:13] LABS: Creatinine, Urine 55.3 mg/dL (30.0-125.0)
[2023-09-26] MEDS: FUROSEMIDE 40 MG/4 ML VIAL IV SCH (21:26)
[2023-09-26] MEDS: SODIUM CHLOR 0.9% PF (SALINE LOCK) 10ML VIAL/SYR IV SCH (21:26)
[2023-09-26] MEDS: ATORVASTATIN 20 MG TAB PO SCH (21:27)
[2023-09-27] VITALS (64 sets, daily range): BP systolic 78–130; BP diastolic 43–92; PULSE 84–116; RESP 14–31; TEMP 97.2–98.1; O2SAT 91–99
[2023-09-27] MEDS: LEVOTHYROXINE SODIUM 25 MCG TAB PO SCH (09:45)
[2023-09-27] MEDS: CITALOPRAM HYDROBR 20 MG TAB PO SCH (09:46)
[2023-09-27] MEDS ORDERED: ASPirin-EC 81 mg tab PO SCH (10:00)
[2023-09-27 10:07] LABS: Hematocrit 27.7 % (41.0-53.0); Red Blood Cells 2.74 10^6/uL (4.5-5.90)
[2023-09-27 10:10] LABS: Hemoglobin 8.9 g/dL (13.5-17.5); Mean Corpuscular Hemoglobin 32.5 pg (28.0-32.0); Mean Corpuscular Hgb Conc. 32.2 g/dL (32.0-36.0); Mean Corpuscular Volume 101.1 fL (80.0-100.0); Red Cell Distribution Width 18.6 % (11.8-14.3)
[2023-09-27 10:18] LABS: INR 1.11 (0.9-1.15); Partial Thromboplastin Time 25.7 SEC (24.5-34.5); Prothrombin Time 11.7 sec (9.3-11.8)
[2023-09-27 10:22] LABS: Basophils % (manual) 0 (0.0-2.0); Blast Cells 0; Eosinophils % (manual) 0 (0-7); Metamyelocytes % 0; Myelocytes % 0; Promyelocytes % 0; White Blood Cell 38.1 10^3/uL (4.4-10.8)
[2023-09-27 10:32] LABS: Alanine Aminotransferase 16 U/L (7-40); Albumin 4.3 g/dL (3.2-4.8); Alkaline Phosphatase 51 U/L (46-116); Anion Gap 8 (5-15); Aspartate Aminotransferase 23 U/L (13-40); BUN/Creatinine Ratio 17.7 (10.0-20.0); Carbon Dioxide 23 mmol/L (20-30); Chloride 106 mmol/L (98-107); Glucose 164 mg/dL (74-106); Magnesium 2.1 mg/dL (1.6-2.6); Potassium 4.6 mmol/L (3.5-5.1); Sodium 137 mmol/L (136-145); Total Protein 6.2 g/dL (5.7-8.2)
[2023-09-27 10:39] LABS: Blood Urea Nitrogen 37 mg/dL (9-23)
[2023-09-27 12:25] LABS: Band Neutrophils % (manual) 1; Lymphocytes % (manual) 86 (10.0-50.0); Monocytes % (manual) 3 (0-12); Reactive Lymphocytes 2
[2023-09-27 12:26] LABS: Anisocytosis Slight; Macrocytosis Slight; Platelet Estimate Markedly Decreased
[2023-09-27] MEDS: DOPamine 1600MCG/ML D5W 250 ML IV SCH (15:54)
[2023-09-27] MEDS: LIDOCAINE 1% (LOCAL ANESTH.) PF 5ml SDV ID ONE (16:57)
[2023-09-27] MEDS: FAMOTIDINE 20 MG TAB PO SCH (18:10)
[2023-09-27] MEDS: SODIUM CHLOR 0.9% PF (SALINE LOCK) 10ML VIAL/SYR IV SCH (22:00)
[2023-09-28] VITALS (93 sets, daily range): BP systolic 84–127; BP diastolic 34–81; PULSE 89–129; RESP 14–28; TEMP 97.4–97.9; O2SAT 90–100
[2023-09-28] MEDS: HYDROcodone-ACET 5/325MG TAB PO PRN (03:03)
[2023-09-28 04:09] LABS: Hematocrit 24.7 % (41.0-53.0); Hemoglobin 8.4 g/dL (13.5-17.5); Mean Corpuscular Hgb Conc. 33.9 g/dL (32.0-36.0); Red Cell Distribution Width 18.3 % (11.8-14.3)
[2023-09-28 04:12] LABS: Mean Corpuscular Hemoglobin 32.9 pg (28.0-32.0); Red Blood Cells 2.55 10^6/uL (4.5-5.90); White Blood Cell 27.4 10^3/uL (4.4-10.8)
[2023-09-28 04:19] LABS: Band Neutrophils % (manual) 0; Basophils % (manual) 0 (0.0-2.0); Blast Cells 0; Eosinophils % (manual) 0 (0-7); Metamyelocytes % 0; Myelocytes % 0; Promyelocytes % 0; Reactive Lymphocytes 0
[2023-09-28 04:23] LABS: Alanine Aminotransferase 15 U/L (7-40); Albumin 4.2 g/dL (3.2-4.8); Alkaline Phosphatase 50 U/L (46-116); Anion Gap 9 (5-15); Aspartate Aminotransferase 21 U/L (13-40); BUN/Creatinine Ratio 21.1 (10.0-20.0); Blood Urea Nitrogen 40 mg/dL (9-23); Calcium 9.1 mg/dL (8.7-10.4); Carbon Dioxide 26 mmol/L (20-30); Chloride 103 mmol/L (98-107); Cholesterol 87 mg/dL (< 200); Glucose 123 mg/dL (74-106); HDL Cholesterol 21 mg/dL (40-59); LDL Cholesterol 47 mg/dL (< 100); Magnesium 2.3 mg/dL (1.6-2.6); Potassium 3.8 mmol/L (3.5-5.1); Sodium 138 mmol/L (136-145); Triglycerides 98 mg/dL (< 150)
[2023-09-28 04:24] LABS: Bilirubin, Total 1.2 mg/dL (0.2-1.0); Total Protein 6.2 g/dL (5.7-8.2)
[2023-09-28] MEDS: LEVOTHYROXINE SODIUM 25 MCG TAB PO SCH (06:23)
[2023-09-28 08:17] LABS: Large Platelets FEW; Lymphocytes % (manual) 73 (10.0-50.0); Monocytes % (manual) 10 (0-12); Platelet Estimate Decrea; Smudge Cells 49 /100 WBC
[2023-09-28 08:18] LABS: Ovalocytes FEW
[2023-09-29] VITALS (82 sets, daily range): BP systolic 80–113; BP diastolic 34–70; PULSE 93–138; RESP 12–24; TEMP 97.7–98.4; O2SAT 88–99
[2023-09-29 10:27] LABS: Basophils # (auto) 0 10 ^3/uL (0-0.2); Eosinophils # (auto) 0.1 10 ^3/uL (0-0.8); Monocytes # (auto) 0.3 10 ^3/uL (0-1.3); Nucleated Red Blood Cells % 0.1 %
[2023-09-29 10:30] LABS: Basophils % (auto) 0.2 % (0.0-2.0); Eosinophils % (auto) 0.4 % (0.0-7.0); Hematocrit 26.3 % (41.0-53.0); Hemoglobin 8.9 g/dL (13.5-17.5); Lymphocytes # (auto) 17.5 10 ^3/uL (0.4-5.4); Mean Corpuscular Hemoglobin 32.8 pg (28.0-32.0); Mean Corpuscular Hgb Conc. 33.7 g/dL (32.0-36.0); Mean Corpuscular Volume 97.2 fL (80.0-100.0); Monocytes % (auto) 1.3 % (0.0-12.0); Neutrophils # (auto) 1.9 10 ^3/uL (1.6-8.6); Neutrophils % (auto) 9.5 % (37.0-80.0); Red Blood Cells 2.71 10^6/uL (4.5-5.90); Red Cell Distribution Width 17.9 % (11.8-14.3); White Blood Cell 19.8 10^3/uL (4.4-10.8)
[2023-09-29 10:41] LABS: Alanine Aminotransferase 14 U/L (7-40); Albumin 4.4 g/dL (3.2-4.8); Alkaline Phosphatase 56 U/L (46-116); Anion Gap 6 (5-15); Aspartate Aminotransferase 21 U/L (13-40); BUN/Creatinine Ratio 16.4 (10.0-20.0); Blood Urea Nitrogen 32 mg/dL (9-23); Calcium 9.4 mg/dL (8.7-10.4); Carbon Dioxide 30 mmol/L (20-30); Chloride 103 mmol/L (98-107); Glucose 173 mg/dL (74-106); Potassium 3.8 mmol/L (3.5-5.1); Sodium 139 mmol/L (136-145)
[2023-09-29 10:42] LABS: Bilirubin, Total 1.4 mg/dL (0.2-1.0); Total Protein 6.3 g/dL (5.7-8.2)
[2023-09-29 10:45] LABS: Lymphocytes % (auto) 88.6 % (10.0-50.0)
[2023-09-29] MEDS: cefTRIAXone 1GM/50ML D5W 50 ML IV SCH (13:38)
[2023-09-29] MEDS: AMIODARONE HCL 200 MG TAB PO ONE (13:52)
[2023-09-29 18:01] LABS: Body Fluid Polymorphonuclear 1 % (0-25); Body Fluid Red Blood Cells 5150 CUMM (0-2000); Body Fluid White Blood Cells 3300 CUMM (0-200)
[2023-09-29] MEDS: AMIODARONE HCL 200 MG TAB PO SCH (21:32)
[2023-09-30] VITALS (9 sets, daily range): BP systolic 101–112; BP diastolic 56–74; PULSE 96–127; RESP 17–20; TEMP 97.8–98.2; O2SAT 95–99
[2023-09-30] MEDS: ZOLPIDEM TARTRATE 5 MG TAB PO PRN (00:28)
[2023-09-30 07:09] LABS: Anion Gap 6 (5-15); Calcium 9.1 mg/dL (8.7-10.4); Carbon Dioxide 31 mmol/L (20-30); Chloride 104 mmol/L (98-107); Potassium 3.7 mmol/L (3.5-5.1); Sodium 141 mmol/L (136-145)
[2023-09-30 07:14] LABS: Hematocrit 23.7 % (41.0-53.0); Hemoglobin 8.1 g/dL (13.5-17.5); Mean Corpuscular Hemoglobin 33.4 pg (28.0-32.0); Mean Corpuscular Hgb Conc. 34.3 g/dL (32.0-36.0); Mean Corpuscular Volume 97.4 fL (80.0-100.0); Red Blood Cells 2.44 10^6/uL (4.5-5.90); Red Cell Distribution Width 18.1 % (11.8-14.3); White Blood Cell 25.4 10^3/uL (4.4-10.8)
[2023-09-30 07:15] LABS: BUN/Creatinine Ratio 15.3 (10.0-20.0); Blood Urea Nitrogen 28 mg/dL (9-23); Glucose 101 mg/dL (74-106)
[2023-09-30 07:16] LABS: Magnesium 2.3 mg/dL (1.6-2.6)
[2023-09-30 07:30] LABS: Band Neutrophils % (manual) 0; Basophils % (manual) 0 (0.0-2.0); Blast Cells 0; Eosinophils % (manual) 0 (0-7); Metamyelocytes % 0; Myelocytes % 0; Promyelocytes % 0; Reactive Lymphocytes 0
[2023-09-30 09:00] LABS: Lymphocytes % (manual) 79 (10.0-50.0); Monocytes % (manual) 5 (0-12)
[2023-09-30 09:01] LABS: Ovalocytes FEW; Platelet Estimate Decreased
[2023-10-01] VITALS (7 sets, daily range): BP systolic 106–120; BP diastolic 60–69; PULSE 95–110; RESP 16–18; TEMP 98–98.4; O2SAT 95–98
[2023-10-01 06:20] LABS: Anion Gap 7 (5-15); Calcium 9.2 mg/dL (8.7-10.4); Carbon Dioxide 30 mmol/L (20-30); Chloride 102 mmol/L (98-107); Potassium 4.3 mmol/L (3.5-5.1); Sodium 139 mmol/L (136-145)
[2023-10-01 06:26] LABS: BUN/Creatinine Ratio 13.7 (10.0-20.0); Blood Urea Nitrogen 25 mg/dL (9-23); Glucose 115 mg/dL (74-106)
[2023-10-01] MEDS ORDERED: FURO1TAB31 PO (09:52)
[2023-10-01] MEDS ORDERED: AMIO200T33 PO (09:52)
[2023-10-01 12:07] LABS: Albumin, Body Fluid 2.3 g/dL (Not Estab.)
[2023-10-13] MEDS ORDERED: METH4PAK PO (13:58)
[2023-10-13] MEDS ORDERED: FURO1TAB31 PO (13:58)
[2023-10-13] MEDS ORDERED: METO-289 PO (14:08)
== END 2023-10-01 18:51 | disposition home health service (06) | DRG 177 ==
LOC: ER 11:50 → OVERFLOW 14:49 → ICU WEST 09-27 08:27 → TELE-WESTW 09-29 23:55
PROVIDERS: ADMIT Internal Medicine; ATTEND Internal Medicine Geriatric Medicine
PROC: 02HV33Z Insertion of Infusion Device into Superior Vena Cava, Percutaneous Approach (ICD-10-PCS; 2023-09-27)
PROC: B548ZZA Ultrasonography of Superior Vena Cava, Guidance (ICD-10-PCS; 2023-09-27)
PROC: 0W993ZZ Drainage of Right Pleural Cavity, Percutaneous Approach (ICD-10-PCS; principal; 2023-09-29)
DX: J15.69 Pneumonia due to other Gram-negative bacteria (principal); I50.33 Acute on chronic diastolic (congestive) heart failure; I13.0 Hypertensive heart and chronic kidney disease with heart failure and stage 1 through stage 4 chronic kidney disease, or unspecified chronic kidney disease; N17.9 Acute kidney failure, unspecified; I48.19 Other persistent atrial fibrillation; C91.10 Chronic lymphocytic leukemia of B-cell type not having achieved remission; R57.9 Shock, unspecified; J91.8 Pleural effusion in other conditions classified elsewhere; J15.9 Unspecified bacterial pneumonia; N18.9 Chronic kidney disease, unspecified; E78.5 Hyperlipidemia, unspecified; E66.9 Obesity, unspecified; E03.9 Hypothyroidism, unspecified; I07.1 Rheumatic tricuspid insufficiency; D69.6 Thrombocytopenia, unspecified; D64.9 Anemia, unspecified; Z68.35 Body mass index [BMI] 35.0-35.9, adult; Z85.828 Personal history of other malignant neoplasm of skin; Z79.899 Other long term (current) drug therapy; Z87.891 Personal history of nicotine dependence
CPT/HCPCS: 32555; 36415; 36569; 71045; 76775; 78582; 80048; 80053; 80061; 81001; 82570; 83605; 83735; 83880; 83986; 84156; 84300; 84443; 84484; 85007; 85025; 85027; 85379; 85610; 85730; 86850; 86900; 86901; 87040; 87081; 87205; 89051; 93005; 96361; 96365; 96367; 96375; 97110; 97116; 97163; 97530; 99291; G0378; J2543

== ENCOUNTER 2023-10-07 12:13 | Inpatient (IN) | payer OTHER ==
[~2023-10-07] VITALS: Ht 170.2 cm; Wt 85.6 kg
[~2023-10-07 12:13] MED LIST changes: +AMIO200T33 PO; -LEVO200T7 PO; -METO1TAB9 PO
[2023-10-07 13:00] LABS: Hemoglobin 7.5 g/dL (13.5-17.5)
[2023-10-07 13:02] LABS: Hematocrit 21.9 % (41.0-53.0); Mean Corpuscular Hemoglobin 32.9 pg (28.0-32.0); Mean Corpuscular Hgb Conc. 34.2 g/dL (32.0-36.0); Red Blood Cells 2.28 10^6/uL (4.5-5.90); Red Cell Distribution Width 17.7 % (11.8-14.3); White Blood Cell 10.9 10^3/uL (4.4-10.8)
[2023-10-07 13:05] LABS: Band Neutrophils % (manual) 0; Basophils % (manual) 0 (0.0-2.0); Blast Cells 0; Eosinophils % (manual) 0 (0-7); Metamyelocytes % 0; Monocytes % (manual) 0 (0-12); Myelocytes % 0; Promyelocytes % 0; Reactive Lymphocytes 0
[2023-10-07 13:25] LABS: Alanine Aminotransferase 13 U/L (7-40); Albumin 4.2 g/dL (3.2-4.8); Alkaline Phosphatase 57 U/L (46-116); Anion Gap 7 (5-15); Aspartate Aminotransferase 16 U/L (13-40); Blood Urea Nitrogen 30 mg/dL (9-23); Carbon Dioxide 26 mmol/L (20-30); Chloride 103 mmol/L (98-107); Glucose 102 mg/dL (74-106); Potassium 4.5 mmol/L (3.5-5.1); Sodium 136 mmol/L (136-145); Total Protein 6.1 g/dL (5.7-8.2)
[2023-10-07 14:08] LABS: INR 1.04 (0.9-1.15)
[2023-10-07 14:24] LABS: Lymphocytes % (manual) 96 (10.0-50.0); Platelet Estimate Decreased
[2023-10-07] MEDS ORDERED: ONDANSETRON HCL 4 MG/2 ML VIAL IV PRN (17:30)
[2023-10-07] MEDS ORDERED: DOCUSATE SOD 100 MG CAP PO PRN (17:30)
[2023-10-07] MEDS ORDERED: ACETAMINOPHEN 325 MG TAB PO PRN (17:30)
[2023-10-07 19:01] VITALS: PULSE 95; RESP 18; O2SAT 93
[2023-10-07] MEDS: TAMSULOSIN HYDROCHLORIDE 0.4 MG CAP PO SCH (19:04)
[2023-10-07] MEDS: FUROSEMIDE 40 MG/4 ML VIAL IV SCH (19:04)
[2023-10-07 19:30] VITALS: PULSE 98; RESP 16; O2SAT 96
[2023-10-07 22:30] VITALS: PULSE 95; RESP 18
[2023-10-07] MEDS: ATORVASTATIN 20 MG TAB PO SCH (22:57)
[2023-10-07] MEDS: GABAPENTIN 100 MG CAP PO SCH (22:57)
[2023-10-07] MEDS: SODIUM CHLOR 0.9% PF (SALINE LOCK) 10ML VIAL/SYR IV SCH (22:57)
[2023-10-08] VITALS (10 sets, daily range): BP systolic 94–118; BP diastolic 46–92; PULSE 86–108; RESP 16–20; TEMP 97.6–98.7; O2SAT 93–99
[2023-10-08] MEDS: HYDROcodone-ACET 5/325MG TAB PO PRN (01:09)
[2023-10-08] MEDS: LEVOTHYROXINE SODIUM 25 MCG TAB PO SCH (05:54)
[2023-10-08 07:19] LABS: Anion Gap 7 (5-15); Carbon Dioxide 26 mmol/L (20-30); Chloride 103 mmol/L (98-107); Potassium 4.3 mmol/L (3.5-5.1); Sodium 136 mmol/L (136-145)
[2023-10-08 07:20] LABS: Calcium 8.6 mg/dL (8.7-10.4)
[2023-10-08 07:25] LABS: BUN/Creatinine Ratio 16.6 (10.0-20.0); Blood Urea Nitrogen 28 mg/dL (9-23); Glucose 97 mg/dL (74-106)
[2023-10-08 08:21] LABS: Basophils # (auto) 0 10 ^3/uL (0-0.2); Basophils % (auto) 0.1 % (0.0-2.0); Eosinophils # (auto) 0 10 ^3/uL (0-0.8); Hematocrit 20.5 % (41.0-53.0); Hemoglobin 7.1 g/dL (13.5-17.5); Monocytes # (auto) 0.2 10 ^3/uL (0-1.3); Nucleated Red Blood Cells % 0.1 %
[2023-10-08 08:26] LABS: Eosinophils % (auto) 0.3 % (0.0-7.0); Lymphocytes # (auto) 7.9 10 ^3/uL (0.4-5.4); Lymphocytes % (auto) 90.9 % (10.0-50.0); Mean Corpuscular Hemoglobin 33.1 pg (28.0-32.0); Mean Corpuscular Hgb Conc. 34.5 g/dL (32.0-36.0); Monocytes % (auto) 2.1 % (0.0-12.0); Neutrophils # (auto) 0.6 10 ^3/uL (1.6-8.6); Neutrophils % (auto) 6.6 % (37.0-80.0); Red Blood Cells 2.14 10^6/uL (4.5-5.90); Red Cell Distribution Width 17.2 % (11.8-14.3); White Blood Cell 8.7 10^3/uL (4.4-10.8)
[2023-10-08 08:36] LABS: Urine Bacteria None Seen /hpf (None Seen); Urine WBC None Seen /hpf (0 - 3)
[2023-10-08 08:44] LABS: Urine Blood Negative /uL (Negative); Urine Clarity Clear (Clear); Urine Color Colorless (Yellow); Urine Protein, UAD Negative (Negative); Urine Specific Gravity 1.007 (1.001-1.035); Urine Urobilinogen Normal (Negative); Urine pH 6.5 (5.0-9.0)
[2023-10-08 08:47] LABS: % Iron Saturation 65.7 % (20-55)
[2023-10-08 09:00] LABS: Creatinine, Urine 23.08 mg/dL (30.0-125.0)
[2023-10-08] MEDS: CITALOPRAM HYDROBR 20 MG TAB PO SCH (09:27)
[2023-10-08] MEDS: AMIODARONE HCL 200 MG TAB PO SCH (09:28)
[2023-10-08] MEDS ORDERED: ENOXAPARIN SOD 40 MG/0.4 ML SYRINGE SC SCH (10:00)
[2023-10-08] MEDS ORDERED: ASPirin-EC 81 mg tab PO SCH (10:00)
[2023-10-08 11:48] LABS: Free T3 1.04 pg/mL (2.3-4.2); Free T4 (Free Thyroxine) 0.76 ng/dL (0.89-1.76)
[2023-10-08] MEDS ORDERED: LEVO200T PO (14:28)
[2023-10-08] MEDS ORDERED: LISI10TA34 PO (14:29)
[2023-10-08] MEDS: FUROSEMIDE 40 MG TAB PO SCH (16:56)
[2023-10-09] VITALS (9 sets, daily range): BP systolic 101–122; BP diastolic 60–69; PULSE 74–108; RESP 16–96; TEMP 97.7–98.4; O2SAT 93–96
[2023-10-09] MEDS: LEVOTHYROXINE SODIUM 100 MCG TAB PO SCH (05:59)
[2023-10-09 06:46] LABS: Mean Corpuscular Hgb Conc. 35.1 g/dL (32.0-36.0)
[2023-10-09 06:52] LABS: Hematocrit 23.2 % (41.0-53.0); Hemoglobin 8.1 g/dL (13.5-17.5); Mean Corpuscular Hemoglobin 33.1 pg (28.0-32.0); Mean Corpuscular Volume 94.2 fL (80.0-100.0); Red Blood Cells 2.46 10^6/uL (4.5-5.90); Red Cell Distribution Width 17.1 % (11.8-14.3); White Blood Cell 7.1 10^3/uL (4.4-10.8)
[2023-10-09 07:02] LABS: Alanine Aminotransferase 12 U/L (7-40); Alkaline Phosphatase 50 U/L (46-116); Anion Gap 9 (5-15); BUN/Creatinine Ratio 17.3 (10.0-20.0); Blood Urea Nitrogen 30 mg/dL (9-23); Calcium 8.6 mg/dL (8.7-10.4); Carbon Dioxide 27 mmol/L (20-30); Chloride 98 mmol/L (98-107); Glucose 93 mg/dL (74-106); Magnesium 2.2 mg/dL (1.6-2.6); Potassium 4.6 mmol/L (3.5-5.1); Sodium 134 mmol/L (136-145)
[2023-10-09 07:03] LABS: Albumin 3.9 g/dL (3.2-4.8); Aspartate Aminotransferase 17 U/L (13-40); Bilirubin, Total 1.2 mg/dL (0.2-1.0); Total Protein 5.8 g/dL (5.7-8.2)
[2023-10-09 07:10] LABS: Basophils % (manual) 0 (0.0-2.0); Blast Cells 0; Eosinophils % (manual) 0 (0-7); Metamyelocytes % 0; Myelocytes % 0; Promyelocytes % 0
[2023-10-09 08:52] LABS: Band Neutrophils % (manual) 1; Lymphocytes % (manual) 88 (10.0-50.0); Monocytes % (manual) 3 (0-12); Reactive Lymphocytes 1
[2023-10-09 08:54] LABS: Anisocytosis Slight; Platelet Estimate Markedly Decreased
[2023-10-10] VITALS (8 sets, daily range): BP systolic 100–105; BP diastolic 56–64; PULSE 75–106; RESP 16–19; TEMP 97.5–98.2; O2SAT 95–99
[2023-10-10 06:09] LABS: Hemoglobin 7.9 g/dL (13.5-17.5); Red Cell Distribution Width 17.4 % (11.8-14.3)
[2023-10-10 06:14] LABS: Hematocrit 22.5 % (41.0-53.0); Mean Corpuscular Hemoglobin 32.8 pg (28.0-32.0); Mean Corpuscular Volume 93.5 fL (80.0-100.0); Red Blood Cells 2.41 10^6/uL (4.5-5.90); White Blood Cell 7.1 10^3/uL (4.4-10.8)
[2023-10-10 06:28] LABS: Albumin 3.9 g/dL (3.2-4.8); Alkaline Phosphatase 52 U/L (46-116); Anion Gap 11 (5-15); Aspartate Aminotransferase 19 U/L (13-40); BUN/Creatinine Ratio 16.1 (10.0-20.0); Blood Urea Nitrogen 30 mg/dL (9-23); Calcium 8.7 mg/dL (8.7-10.4); Carbon Dioxide 25 mmol/L (20-30); Chloride 98 mmol/L (98-107); Glucose 89 mg/dL (74-106); Magnesium 2.2 mg/dL (1.6-2.6); Potassium 4.3 mmol/L (3.5-5.1); Sodium 134 mmol/L (136-145)
[2023-10-10 06:29] LABS: Total Protein 5.7 g/dL (5.7-8.2)
[2023-10-10 06:31] LABS: Basophils % (manual) 0 (0.0-2.0); Blast Cells 0; Metamyelocytes % 0; Myelocytes % 0; Promyelocytes % 0
[2023-10-10 06:46] LABS: Alanine Aminotransferase 9 U/L (7-40)
[2023-10-10 08:05] LABS: Band Neutrophils % (manual) 1; Eosinophils % (manual) 2 (0-7); Lymphocytes % (manual) 85 (10.0-50.0); Monocytes % (manual) 4 (0-12); Reactive Lymphocytes 2
[2023-10-10 08:06] LABS: Anisocytosis Slight; Platelet Estimate Markedly Decreased
[2023-10-10 13:41] LABS: Nucleated Red Blood Cells % 0.2 %
[2023-10-10 13:56] LABS: INR 1.01 (0.9-1.15); Partial Thromboplastin Time 26.4 SEC (24.5-34.5); Prothrombin Time 10.7 sec (9.3-11.8)
[2023-10-10 14:01] LABS: Anisocytosis Slight; Platelet Estimate Markedly Decreased
[2023-10-13] MEDS ORDERED: METH4PAK PO (13:58)
[2023-10-13] MEDS ORDERED: FURO1TAB31 PO (13:58)
[2023-10-13] MEDS ORDERED: METO-289 PO (14:08)
== END 2023-10-10 18:36 | disposition home or self-care (01) | DRG 840 ==
LOC: ER 12:13 → TELE 17:36 → TELE-EAST 22:05
PROVIDERS: ADMIT Internal Medicine; ATTEND Internal Medicine Geriatric Medicine
PROC: 30233N1 Transfusion of Nonautologous Red Blood Cells into Peripheral Vein, Percutaneous Approach (ICD-10-PCS; principal; 2023-10-08)
DX: C91.10 Chronic lymphocytic leukemia of B-cell type not having achieved remission (principal); I50.33 Acute on chronic diastolic (congestive) heart failure; N13.30 Unspecified hydronephrosis; I48.19 Other persistent atrial fibrillation; I13.0 Hypertensive heart and chronic kidney disease with heart failure and stage 1 through stage 4 chronic kidney disease, or unspecified chronic kidney disease; I07.1 Rheumatic tricuspid insufficiency; D64.9 Anemia, unspecified; E03.9 Hypothyroidism, unspecified; D69.6 Thrombocytopenia, unspecified; E78.5 Hyperlipidemia, unspecified; N18.32 Chronic kidney disease, stage 3b; Z79.899 Other long term (current) drug therapy
CPT/HCPCS: 36415; 71045; 76775; 80048; 80053; 81001; 82570; 82728; 82784; 83010; 83540; 83550; 83605; 83615; 83735; 83880; 84300; 84439; 84443; 84481; 84484; 85007; 85025; 85027; 85045; 85384; 85610; 85730; 86850; 86880; 86885; 86900; 86901; 86920; 87081; 93005; G0378

== ENCOUNTER 2023-11-25 19:41 | Inpatient (IN) | payer OTHER ==
[~2023-11-25] VITALS: Ht 170.2 cm; Wt 85.9 kg
[2023-11-25] MEDS: PIPERACILLIN-TAZO 4.5GM 100 ML IV ONE (01:10)
[2023-11-25] MEDS: FUROSEMIDE 40 MG/4 ML VIAL IV ONE (01:20)
[2023-11-25] MEDS: VANCOMYCIN 1GM/200ML 200 ML IV ONE (02:20)
[~2023-11-25 19:41] MED LIST changes: -ASPI-543 PO; +LEVO200T PO; -LEVO25TA2 PO; +METH4PAK PO; +METO-289 PO; -TAMS0.4C36 PO; +TAMS0.4C39 PO
[2023-11-25 20:50] LABS: Platelet Count (auto) 55 10^3/uL (140-450)
[2023-11-25 20:53] LABS: Hematocrit 21.2 % (41.0-53.0); Mean Corpuscular Hemoglobin 32.1 pg (28.0-32.0); Mean Corpuscular Hgb Conc. 29.4 g/dL (32.0-36.0); Mean Corpuscular Volume 109.2 fL (80.0-100.0); Red Blood Cells 1.94 10^6/uL (4.5-5.90)
[2023-11-25 21:01] LABS: Alanine Aminotransferase 62 U/L (7-40); Albumin 4.1 g/dL (3.2-4.8); Alkaline Phosphatase 169 U/L (46-116); Anion Gap 7 (5-15); Aspartate Aminotransferase 37 U/L (13-40); BUN/Creatinine Ratio 29.6 (10.0-20.0); Bilirubin, Total 1.2 mg/dL (0.2-1.0); Blood Urea Nitrogen 48 mg/dL (9-23); Calcium 8.6 mg/dL (8.7-10.4); Carbon Dioxide 24 mmol/L (20-30); Chloride 104 mmol/L (98-107); Glucose 159 mg/dL (74-106); Lipase 89 U/L (12-53); Potassium 4.7 mmol/L (3.5-5.1); Sodium 135 mmol/L (136-145); Total Protein 5.9 g/dL (5.7-8.2)
[2023-11-25 21:19] LABS: Red Cell Distribution Width 23.9 % (11.8-14.3)
[2023-11-25 21:21] LABS: Hemoglobin 6.2 g/dL (13.5-17.5); White Blood Cell 117.7 10^3/uL (4.4-10.8)
[2023-11-25 21:22] LABS: Band Neutrophils % (manual) 0; Basophils % (manual) 0 (0.0-2.0); Blast Cells 0; Eosinophils % (manual) 0 (0-7); Metamyelocytes % 0; Myelocytes % 0; Promyelocytes % 0
[2023-11-25] MEDS ORDERED: VANCOMYCIN PER PHARMACY 0 MG IV SCH (21:30)
[2023-11-25] MEDS: VANCOMYCIN 1,000 MG in SODIUM CHL 0.9% 250 ML IV ONE (22:30)
[2023-11-25 23:16] LABS: Anisocytosis Slight; Lymphocytes % (manual) 83 (10.0-50.0); Monocytes % (manual) 4 (0-12); Platelet Estimate Decreased; Reactive Lymphocytes 7
[2023-11-25 23:17] LABS: Macrocytosis Moderate; Smudge Cells 6 /100 WBC
[2023-11-25 23:58] LABS: % Iron Saturation 70.2 % (20-55)
[2023-11-26] VITALS (14 sets, daily range): BP systolic 85–119; BP diastolic 53–74; PULSE 0–94; RESP 18–22; TEMP 94.4–97.6; O2SAT 94–100
[2023-11-26 00:02] LABS: Folate (Folic Acid) 6.78 ng/mL (>5.38)
[2023-11-26] MEDS ORDERED: DEXTROSE (50%) 50ML SYRG IV PRN (01:15)
[2023-11-26] MEDS ORDERED: DOCUSATE SOD 100 MG CAP PO PRN (01:15)
[2023-11-26] MEDS ORDERED: ONDANSETRON HCL 4 MG/2 ML VIAL IV PRN (01:15)
[2023-11-26] MEDS ORDERED: ACETAMINOPHEN 325 MG TAB PO PRN (01:15)
[2023-11-26 01:22] LABS: Hematocrit 22.6 % (41.0-53.0); Mean Corpuscular Hemoglobin 32.7 pg (28.0-32.0); Mean Corpuscular Hgb Conc. 27.6 g/dL (32.0-36.0); Mean Corpuscular Volume 118.7 fL (80.0-100.0); Platelet Count (auto) 54 10^3/uL (140-450)
[2023-11-26 01:37] LABS: Red Cell Distribution Width 26.5 % (11.8-14.3)
[2023-11-26 01:39] LABS: Hemoglobin 6.2 g/dL (13.5-17.5); White Blood Cell 111.6 10^3/uL (4.4-10.8)
[2023-11-26 01:40] LABS: Band Neutrophils % (manual) 0; Basophils % (manual) 0 (0.0-2.0); Blast Cells 0; Eosinophils % (manual) 0 (0-7); Metamyelocytes % 0; Myelocytes % 0; Promyelocytes % 0
[2023-11-26] MEDS: methylPREDNISolone SOD SUCC 40 MG/ML VL IV ONE (02:25)
[2023-11-26 02:36] LABS: Anisocytosis Moderate; Lymphocytes % (manual) 89 (10.0-50.0); Macrocytosis Marked; Monocytes % (manual) 2 (0-12); Platelet Estimate Decreased; Reactive Lymphocytes 2; Smudge Cells 4 /100 WBC
[2023-11-26] MEDS: SODIUM CHLOR 0.9% PF (SALINE LOCK) 10ML VIAL/SYR IV SCH (05:25)
[2023-11-26 05:29] LABS: Hematocrit 23.8 % (41.0-53.0); Hemoglobin 7.5 g/dL (13.5-17.5); Mean Corpuscular Hemoglobin 32.3 pg (28.0-32.0); Mean Corpuscular Hgb Conc. 31.5 g/dL (32.0-36.0); Mean Corpuscular Volume 102.6 fL (80.0-100.0); Platelet Count (auto) 46 10^3/uL (140-450); Red Blood Cells 2.32 10^6/uL (4.5-5.90)
[2023-11-26] MEDS ORDERED: NITROGLYCERIN 0.4 MG SL TAB SL PRN (05:30)
[2023-11-26] MEDS ORDERED: MORPHINE SULFATE INJ 2 MG/ml SYRG IV PRN (05:30)
[2023-11-26 05:31] LABS: Red Cell Distribution Width 23.1 % (11.8-14.3)
[2023-11-26 05:32] LABS: White Blood Cell 97.1 10^3/uL (4.4-10.8)
[2023-11-26 05:33] LABS: Band Neutrophils % (manual) 0; Basophils % (manual) 0 (0.0-2.0); Blast Cells 0; Eosinophils % (manual) 0 (0-7); Metamyelocytes % 0; Myelocytes % 0; Promyelocytes % 0
[2023-11-26 06:08] LABS: Alanine Aminotransferase 58 U/L (7-40); Alkaline Phosphatase 151 U/L (46-116); Anion Gap 6 (5-15); Aspartate Aminotransferase 36 U/L (13-40); BUN/Creatinine Ratio 22.5 (10.0-20.0); Calcium 8.5 mg/dL (8.7-10.4); Carbon Dioxide 25 mmol/L (20-30); Chloride 105 mmol/L (98-107); Glucose 125 mg/dL (74-106); Potassium 4.5 mmol/L (3.5-5.1); Sodium 136 mmol/L (136-145)
[2023-11-26 06:09] LABS: Bilirubin, Total 1.7 mg/dL (0.2-1.0); Total Protein 5.7 g/dL (5.7-8.2)
[2023-11-26] MEDS: LEVOTHYROXINE SODIUM 50 MCG TAB PO SCH (06:19)
[2023-11-26] MEDS: InsuLIN REG 1unit/0.01ml Soln (100units/ml) SC SCH ×2 (06:24→21:14)
[2023-11-26] MEDS: ACCU-CHEK COMFORT CURVE STRIP VI SCH (06:25)
[2023-11-26 06:34] LABS: Blood Urea Nitrogen 36 mg/dL (9-23)
[2023-11-26] MEDS: cefTRIAXone 1GM/50ML D5W 50 ML IV SCH (09:20)
[2023-11-26] MEDS: METOPROLOL TARTRATE 25 MG TAB PO SCH (10:00)
[2023-11-26] MEDS ORDERED: ASPirin 81 mg TAB PO SCH (10:00)
[2023-11-26] MEDS: FUROSEMIDE 20 MG/2 ML VIAL IV SCH (10:00)
[2023-11-26] MEDS ORDERED: CARVEDILOL 3.125 MG TAB PO SCH (10:00)
[2023-11-26] MEDS: FAMOTIDINE (10MG/ML) 2ML VL IV SCH (10:52)
[2023-11-26] MEDS: methylPREDNISolone SOD SUCC 40 MG/ML VL IV SCH (10:52)
[2023-11-26 10:55] LABS: Lymphocytes % (manual) 87 (10.0-50.0); Monocytes % (manual) 2 (0-12); Platelet Estimate Decreased; Reactive Lymphocytes 2; Smudge Cells 5 /100 WBC
[2023-11-26 10:56] LABS: Anisocytosis Slight; Macrocytosis Slight
[2023-11-26 11:21] LABS: INR 1.17 (0.9-1.15); Partial Thromboplastin Time 27.6 SEC (24.5-34.5); Prothrombin Time 12.3 sec (9.3-11.8)
[2023-11-26 18:09] LABS: Urine Bacteria None Seen /hpf (None Seen)
[2023-11-26 18:23] LABS: Urine Blood 1+ /uL (Negative); Urine Clarity Clear (Clear); Urine Color Light-Yellow (Yellow); Urine Protein, UAD TRACE (Negative); Urine Urobilinogen Normal (Negative); Urine WBC 2 /hpf (0 - 3); Urine pH 5.5 (5.0-9.0)
[2023-11-26] MEDS ORDERED: ATORVASTATIN 20 MG TAB PO SCH (22:00)
[2023-11-27] VITALS (10 sets, daily range): BP systolic 103–123; BP diastolic 53–73; PULSE 77–96; RESP 18–19; TEMP 97.6–98.4; O2SAT 90–97
[2023-11-27 06:18] LABS: Platelet Count (auto) 36 10^3/uL (140-450); Red Blood Cells 2.66 10^6/uL (4.5-5.90)
[2023-11-27 06:24] LABS: Hematocrit 26.9 % (41.0-53.0); Hemoglobin 8.3 g/dL (13.5-17.5); Mean Corpuscular Hemoglobin 31.4 pg (28.0-32.0); Mean Corpuscular Volume 101.3 fL (80.0-100.0); Red Cell Distribution Width 23.2 % (11.8-14.3)
[2023-11-27 06:29] LABS: White Blood Cell 111.6 10^3/uL (4.4-10.8)
[2023-11-27 06:31] LABS: Band Neutrophils % (manual) 0; Basophils % (manual) 0 (0.0-2.0); Blast Cells 0; Eosinophils % (manual) 0 (0-7); Metamyelocytes % 0; Myelocytes % 0; Promyelocytes % 0; Reactive Lymphocytes 0
[2023-11-27 06:35] LABS: Alanine Aminotransferase 49 U/L (7-40); Alkaline Phosphatase 138 U/L (46-116); Anion Gap 6 (5-15); Aspartate Aminotransferase 30 U/L (13-40); BUN/Creatinine Ratio 25.8 (10.0-20.0); Blood Urea Nitrogen 42 mg/dL (9-23); Calcium 8.6 mg/dL (8.7-10.4); Carbon Dioxide 22 mmol/L (20-30); Chloride 106 mmol/L (98-107); Glucose 159 mg/dL (74-106); Potassium 5.4 mmol/L (3.5-5.1); Sodium 134 mmol/L (136-145)
[2023-11-27 06:36] LABS: Bilirubin, Total 1.1 mg/dL (0.2-1.0); Total Protein 5.8 g/dL (5.7-8.2)
[2023-11-27] MEDS: VANCOMYCIN 500 MG in D5W 5% 100 ML IV SCH (06:43)
[2023-11-27 07:41] LABS: Lymphocytes % (manual) 87 (10.0-50.0); Macrocytosis Slight; Monocytes % (manual) 5 (0-12)
[2023-11-27 07:42] LABS: Anisocytosis Slight
[2023-11-27 07:43] LABS: Platelet Estimate Decreased
[2023-11-27] MEDS: SODIUM ZIRCONIUM CYCL 10 GM PAK PO ONE (10:00)
[2023-11-28] VITALS (7 sets, daily range): BP systolic 106–123; BP diastolic 59–74; PULSE 73–84; RESP 16–19; TEMP 97.5–98.7; O2SAT 86–99
[2023-11-28 06:30] LABS: Red Blood Cells 2.56 10^6/uL (4.5-5.90)
[2023-11-28 06:35] LABS: Hematocrit 26.5 % (41.0-53.0); Hemoglobin 8.1 g/dL (13.5-17.5); Mean Corpuscular Hemoglobin 31.6 pg (28.0-32.0); Mean Corpuscular Hgb Conc. 30.5 g/dL (32.0-36.0); Mean Corpuscular Volume 103.7 fL (80.0-100.0); Platelet Count (auto) 39 10^3/uL (140-450); Red Cell Distribution Width 23.4 % (11.8-14.3)
[2023-11-28 06:52] LABS: Band Neutrophils % (manual) 0; Basophils % (manual) 0 (0.0-2.0); Blast Cells 0; Eosinophils % (manual) 0 (0-7); Metamyelocytes % 0; Myelocytes % 0; Promyelocytes % 0; Reactive Lymphocytes 0; White Blood Cell 117.1 10^3/uL (4.4-10.8)
[2023-11-28 06:54] LABS: Calcium 8.6 mg/dL (8.7-10.4); Chloride 105 mmol/L (98-107); Potassium 4.2 mmol/L (3.5-5.1); Sodium 137 mmol/L (136-145)
[2023-11-28 06:55] LABS: Anion Gap 12 (5-15); Carbon Dioxide 20 mmol/L (20-30)
[2023-11-28 07:00] LABS: BUN/Creatinine Ratio 32.7 (10.0-20.0); Blood Urea Nitrogen 51 mg/dL (9-23); Glucose 210 mg/dL (74-106)
[2023-11-28 08:31] LABS: Lymphocytes % (manual) 88 (10.0-50.0); Monocytes % (manual) 1 (0-12)
[2023-11-28 08:32] LABS: Anisocytosis Slight; Macrocytosis Slight; Platelet Estimate Decreased
[2023-11-29] VITALS (8 sets, daily range): BP systolic 104–139; BP diastolic 57–78; PULSE 81–94; RESP 16–20; TEMP 97.1–98; O2SAT 73–98
[2023-11-29 14:50] LABS: Body Fluid Polymorphonuclear 5 % (0-25); Body Fluid Red Blood Cells 6980 CUMM (0-2000); Body Fluid White Blood Cells 490 CUMM (0-200)
[2023-11-29] MEDS: ATORVASTATIN 20 MG TAB PO SCH (22:46)
[2023-11-30 01:00] VITALS: BP 113/73; PULSE 90; RESP 20; TEMP 98.6; O2SAT 96
[2023-11-30 05:00] VITALS: BP 123/77; PULSE 76; RESP 18; TEMP 98.6; O2SAT 97
[2023-11-30 07:35] LABS: Hemoglobin 8.4 g/dL (13.5-17.5)
[2023-11-30 07:42] LABS: Hematocrit 27.4 % (41.0-53.0); Mean Corpuscular Hemoglobin 31.7 pg (28.0-32.0); Mean Corpuscular Hgb Conc. 30.6 g/dL (32.0-36.0); Mean Corpuscular Volume 103.6 fL (80.0-100.0); Platelet Count (auto) 35 10^3/uL (140-450); Red Blood Cells 2.65 10^6/uL (4.5-5.90)
[2023-11-30 07:50] LABS: Red Cell Distribution Width 24.5 % (11.8-14.3)
[2023-11-30 07:52] LABS: White Blood Cell 106.9 10^3/uL (4.4-10.8)
[2023-11-30 07:54] LABS: Band Neutrophils % (manual) 0; Basophils % (manual) 0 (0.0-2.0); Blast Cells 0; Eosinophils % (manual) 0 (0-7); Metamyelocytes % 0; Myelocytes % 0; Promyelocytes % 0
[2023-11-30 07:55] LABS: Alanine Aminotransferase 35 U/L (7-40); Albumin 3.9 g/dL (3.2-4.8); Alkaline Phosphatase 107 U/L (46-116); Anion Gap 3 (5-15); Aspartate Aminotransferase 16 U/L (13-40); Bilirubin, Total 0.8 mg/dL (0.2-1.0); Blood Urea Nitrogen 40 mg/dL (9-23); Calcium 8.4 mg/dL (8.7-10.4); Carbon Dioxide 27 mmol/L (20-30); Chloride 109 mmol/L (98-107); Glucose 145 mg/dL (74-106); Magnesium 2.9 mg/dL (1.6-2.6); Potassium 5.5 mmol/L (3.5-5.1); Sodium 139 mmol/L (136-145); Total Protein 5.7 g/dL (5.7-8.2)
[2023-11-30 08:00] VITALS: PULSE 68; PULSE 74; RESP 18; O2SAT 92
[2023-11-30 08:15] LABS: BUN/Creatinine Ratio 27.8 (10.0-20.0)
[2023-11-30 09:00] VITALS: BP 108/63; PULSE 83; RESP 18; TEMP 97.5; O2SAT 97
[2023-11-30] MEDS: SODIUM ZIRCONIUM CYCL 10 GM PAK PO ONE (10:14)
[2023-11-30] MEDS: HYDROcodone-ACET 5/325MG TAB PO PRN (10:17)
[2023-11-30 10:46] LABS: Anisocytosis Moderate; Lymphocytes % (manual) 91 (10.0-50.0); Macrocytosis Slight; Monocytes % (manual) 2 (0-12); Platelet Estimate Decreased; Reactive Lymphocytes 2
[2023-11-30 11:07] LABS: Protein, Body Fluid 2.5 g/dL (.)
[2023-11-30] MEDS: FUROSEMIDE 40 MG/4 ML VIAL IV ONE (12:06)
[2023-11-30 13:00] VITALS: BP 114/90; PULSE 90; RESP 18; TEMP 98.1; O2SAT 92
[2023-11-30 13:01] VITALS: BP 115/63; PULSE 67; TEMP 36.4
== END 2023-11-30 14:35 | disposition home or self-care (01) | DRG 682 ==
LOC: ER 19:41 → TELE 11-26 05:25 → TELE-CENTR 11-26 15:58
PROVIDERS: ADMIT Nurse Practitioner Family; ATTEND Internal Medicine Geriatric Medicine
PROC: 30233N1 Transfusion of Nonautologous Red Blood Cells into Peripheral Vein, Percutaneous Approach (ICD-10-PCS; principal; 2023-11-26)
PROC: 0W993ZZ Drainage of Right Pleural Cavity, Percutaneous Approach (ICD-10-PCS; 2023-11-29)
DX: N17.0 Acute kidney failure with tubular necrosis (principal); I50.33 Acute on chronic diastolic (congestive) heart failure; I13.0 Hypertensive heart and chronic kidney disease with heart failure and stage 1 through stage 4 chronic kidney disease, or unspecified chronic kidney disease; C91.10 Chronic lymphocytic leukemia of B-cell type not having achieved remission; D69.3 Immune thrombocytopenic purpura; I48.19 Other persistent atrial fibrillation; J91.8 Pleural effusion in other conditions classified elsewhere; D53.9 Nutritional anemia, unspecified; I07.1 Rheumatic tricuspid insufficiency; N18.31 Chronic kidney disease, stage 3a; N40.0 Benign prostatic hyperplasia without lower urinary tract symptoms; E87.5 Hyperkalemia; F32.A Depression, unspecified; E78.5 Hyperlipidemia, unspecified; G89.29 Other chronic pain; E03.9 Hypothyroidism, unspecified; Z91.040 Latex allergy status; Z85.828 Personal history of other malignant neoplasm of skin; Z87.891 Personal history of nicotine dependence
CPT/HCPCS: 32555; 36415; 36430; 71045; 71250; 74176; 76604; 76942; 80048; 80053; 80202; 81001; 82565; 82607; 82728; 82746; 82962; 83540; 83550; 83605; 83615; 83690; 83735; 83880; 83986; 84443; 84484; 85007; 85027; 85045; 85379; 85610; 85730; 86850; 86900; 86901; 86920; 87040; 87070; 87081; 87086; 87205; 89051; 93005; G0378; J1815; J2543; J3490; J7060

== ENCOUNTER 2024-12-26 15:06 | Inpatient (IN) | payer OTHER ==
[~2024-12-26] VITALS: Ht 170.2 cm; Wt 81.8 kg
[2024-12-26] MEDS: SODIUM CHLORIDE 0.9% 1,000 ML IV SCH (12:15)
[~2024-12-26 15:06] MED LIST changes: +FURO40TA4 PO; +GAB100C PO; +LEVO25TA2 PO; +POM PO
--- NOTE | 2024-12-26 15:31 | ECG ---
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
--- NOTE | 2024-12-26 15:40 | ED.PDOC ---
History of Present Illness HPI Comments 84 y/o M, brought in by caregiver, with PMHx of cancer, anemia, depression, AFib, CHF, CKF, HLD, and HTN presents to the ED for CC of body-pain. Patient states, he has been experiencing generalized body-pain with an associated cough sudden onset, 0000 today (12/26/24). Patient further relays, to have increased shortness of breath with light execration. Patient denies fever, chills, sore- throat, or loss of taste and smell. Chief Complaint: Lower Extremity Time Seen by MD: 15:30 Primary Care Provider: Manish Reviewed Notes: Nurses Notes, Medications, Allergies Allergies: Coded Allergies: Latex (Verified Allergy, Unknown, 09/15/23) Home Meds Active Scripts Furosemide (Lasix) 40 Mg Tab, 40 MG PO DAILY for 30 Days, #30 TAB 3 Refills Prov:ANUPAM OLIVER MD 10/13/23 Methylprednisolone (Medrol Dosepak) 4 Mg Xander, 4 MG PO UD, #21 TAB UAD Prov:ANUPAM OLIVER MD 10/13/23 Amiodarone Hcl (Amiodarone Hcl) 200 Mg Tab, 1 TAB PO DAILY, #30 TAB 5 Refills Prov:ANUPAM OLIVER MD 10/01/23 Reported Medications Metoprolol Succinate (Metoprolol Succinate Er) 50 Mg Tab, 100 MG PO DAILY 10/13/23 Levothyroxine Sodium (Synthroid) 200 Mcg Tab, 1 TAB PO QAM, TAB 10/08/23 Gabapentin (Gabapentin) 100 Mg Cap, 1 CAP PO TID, #90 CAP 2 Refills 09/16/23 Triamcinolone Acetonide (Triamcinolone Acetonide) 0.5 % Oin, 1 APPLIC TOP BID, #15 GRAMS 09/16/23 Atorvastatin Calcium (ATORVASTATIN CALCIUM) 40 Mg Tab, 1 TAB PO DAILY 09/16/23 Tramadol Hcl (Tramadol Hcl) 50 Mg Tab, 50 MG PO TID, TAB 03/18/17 Tamsulosin Hcl (Tamsulosin Hcl) 0.4 Mg Cap, 0.8 MG PO QPM for 30 Days, MG 03/18/17 Citalopram Hydrobromide (Citalopram Hydrobromide) 10 Mg Tab, 10 MG PO DAILY for 30 Days, MG 03/18/17 Information Source: Patient Mode of Arrival: Ambulatory Severity: Moderate Timing: Hours Duration: Since onset Prehospital treatment: None Past Medical History PAST MEDICAL HISTORY: AFIB, Anemia, Cancer, CHF, CKF, Depression, High Lipids, HTN, Thyroid Surgical History: Tonsillectomy Family History Family History: No family hx of Cancer, No family hx of DM, No family hx of Heart sherice Social History Smoker: Non-Smoker Alcohol: Denies ETOH Use Drugs: Denies Drug Use Lives In: Home Constitutional: reports: others (BODY-ACHES); denies: chills, diaphoresis, fatigue, fever, malaise, sweats, weakness EENTM: denies: blurred vision, double vision, ear bleeding, ear discharge, ear drainage, ear pain, ear ringing, eye pain, eye redness, hearing loss, mouth pain, mouth swelling, nasal discharge, nose bleeding, nose congestion, nose pain, photophobia, tearing, throat pain, throat swelling, voice changes, others Respiratory: reports: cough, shortness of breath; denies: hemoptysis, orthopnea, SOB at rest, SOB with excertion, stridor, wheezing, others Cardiovascular: denies: chest pain, dizzy spells, diaphoresis, Dyspnea on exertion, edema, irregular heart beat, left arm pain, lightheadedness, palpitations, PND, syncope, others Gastrointestinal: denies: abdomen distended, abdominal pain, blood streaked bowels, constipated, diarrhea, dysphagia, difficulty swallowing, hematemesis, melena, nausea, poor appetite, poor fluid intake, rectal bleeding, rectal pain, vomiting, others Genitourinary: denies: burning, dysuria, flank pain, frequency, hematuria, incontinence, penile discharge, penile sore, pain, testicle pain, testicle swelling, urgency, others Neurological: denies: dizziness, fainting, headache, left sided numbness, left sided weakness, numbness, paresthesia, pre-existing deficit, right sided numbness, right sided weakness, seizure, speech problems, tingling, tremors, weakness, others Musculoskeletal: denies: back pain, gout, joint pain, joint swelling, muscle pain, muscle stiffness, neck pain, others Integumetry: denies: bruises, change in color, change in hair/nails, dryness, laceration, lesions, lumps, rash, wounds, others Allergic/Immunocompromised: denies: Difficulty Healing, Frequent Infections, Hives, Itching, others Hematologic/Lymphatic: denies: anemia, blood clots, easy bleeding, easy bruising, swollen glands, others Endocrine: denies: excessive hunger, excessive sweating, excessive thirst, excessive urination, flushing, intolerance to cold, intolerance to heat, unexplained weight gain, unexplained weight loss, others Psychiatric: denies: anxiety, bipolar disorder, depression, hopeless, panic disorder, schizophrenia, sleepless, suicidal, others All Other Systems: Reviewed and Negative Physical Exam General Appearance: No Apparent Distress, Normal HEENT: Normal ENT Inspection, Pharynx Normal Neck: Full Range of Motion, Non-Tender, Normal, Normal Inspection Respiratory: Chest Non-Tender, Lungs Clear, No Accessory Muscle Use, No Respiratory Distress, Normal Breath Sounds Cardiovascular: No Edema, No Murmur, No Gallop, Normal Peripheral Pulses, Regular Rate/Rhythm Breast Exam: Deferred Gastrointestinal: No Organomegaly, Non Tender, No Pulsatile Mass, Normal Bowel Sounds, Soft Genitalia: Deferred Pelvic: Deferred Rectal: Deferred Extremities: No calf tenderness, Normal capillary refill, Normal inspection, Normal range of motion, Non-tender, No pedal edema Musculoskeletal : Apperance: Normal Neurologic: Alert, maintenance plumber II-XII nml as Tested, No Motor Deficits, Normal Affect, Normal Mood, No Sensory Deficits Cerebellar Function: Normal Reflexes: Normal Skin: Dry, Normal Color, Warm Lymphatic: No Adenopathy Was a procedure done? Was a procedure done?: No Differential Dx Considerations may include: COVID-19, INFLUENZA, PNEUMONIA X-Ray, Labs, Meds, VS Vital Signs Date Time Temp Pulse Resp B/P (MAP) Pulse Ox O2 Delivery O2 Flow Rate FiO2 12/26/24 15:17 81 12/26/24 15:09 97.3 82 16 117/62 93 97.3 Lab Test 12/26/24 16:50 12/26/24 15:59 12/26/24 15:38 Range/Units Troponin I High Sensitivity 5 7 </=54 ng/L White Blood Count 11.5 H 4.4-10.8 10^3/uL Red Blood Count 5.02 4.5-5.90 10^6/uL Hemoglobin 13.8 13.5-17.5 g/dL Hematocrit 41.3 41.0-53.0 % Mean Corpuscular Volume 82.2 80.0-100.0 fL Mean Corpuscular Hemoglobin 27.4 L 28.0-32.0 pg Mean Corpuscular Hemoglobin Concent 33.4 32.0-36.0 g/dL Red Cell Distribution Width 15.7 H 11.8-14.3 % Platelet Count 207 140-450 10^3/uL Mean Platelet Volume 7.6 6.9-10.8 fL Neutrophils (%) (Auto) 59.2 37.0-80.0 % Lymphocytes (%) (Auto) 32.5 10.0-50.0 % Monocytes (%) (Auto) 7.9 0.0-12.0 % Eosinophils (%) (Auto) 0.3 0.0-7.0 % Basophils (%) (Auto) 0.1 0.0-2.0 % Neutrophils # (Auto) 6.8 1.6-8.6 10 ^3/uL Lymphocytes # (Auto) 3.7 0.4-5.4 10 ^3/uL Monocytes # (Auto) 0.9 0-1.3 10 ^3/uL Eosinophils # (Auto) 0 0-0.8 10 ^3/uL Basophils # (Auto) 0 0-0.2 10 ^3/uL Nucleated Red Blood Cells 0.1 % Sodium Level 138 136-145 mmol/L Potassium Level 3.8 3.5-5.1 mmol/L Chloride Level 97 L 98-107 mmol/L Carbon Dioxide Level 31 20-31 mmol/L Anion Gap 10 5-15 Blood Urea Nitrogen 19 9-23 mg/dL Creatinine 1.73 H 0.700-1.30 mg/dL Glomerular Filtration Rate Calc 38 >90 mL/min BUN/Creatinine Ratio 11.0 10.0-20.0 Serum Glucose 116 H 74-106 mg/dL Lactic Acid Level 1.5 0.4-2.0 mmol/L Calcium Level 9.2 8.7-10.4 mg/dL Total Bilirubin 1.2 H 0.2-1.0 mg/dL Aspartate Amino Transferase (AST) 16 13-40 U/L Alanine Aminotransferase (ALT) 9 7-40 U/L Alkaline Phosphatase 159 H 46-116 U/L Total Protein 7.3 5.7-8.2 g/dL Albumin 4.6 3.2-4.8 g/dL Influenza Type A Antigen Negative Negative Influenza Type B Antigen Negative Negative SARS-CoV-2 Antigen (Rapid) Negative NEGATIVE [facility] [id number] [facility] [id number] Ph: [phone] DIAGNOSTIC IMAGING Diagnostic Imaging Report : [id number] Signed PATIENT: NORA FERNANDO ACCT: [id number] UNIT: [id number] : 1940 LOC: ER ROOM / BED: / AGE / SEX: 84 / M ADM STATUS: REG ER SERVICE 1532 ORDERING PHYSICIAN: DAMI NEW PROCEDURE(s): CXR1 - CHEST XRAY 1 VIEW REASON: cough ORDER NUMBER(s): [id number], ACCESSION NUMBER(s): [id number] Procedure: XY CHEST XRAY 1 VIEW History: cough Comparison: None Technique: Single view of the chest. Findings: Large right pleural effusion with compressive atelectasis. Left lung is clear. Cardiac silhouette is enlarged. Impression: 1. Large right pleural effusion with compressive atelectasis. ATED BY: ANTHONY DAI MD DICTATED DATE/TIME: 12/26/241555 SIGNED BY: ANTHONY DAI MD SIGNED DATE/TIME: 12/26/241555 CC: X-Ray, Labs, Meds, VS Comment Patient be admitted for shortness of breath and pleural effusion Vital signs stable Recommend pulmonology consult Time of 1ST Reevaluation: 16:00 Reevaluation 1ST: Unchanged Patient Education/Counseling: Diagnosis, Treatment Family Education/Counseling: Diagnosis, Treatment SEPSIS Sepsis Screen Date sepsis recognized/suspect: Dec 26, 2024 Time Sepsis recognized/suspect: 1513 Recent Procedure: No On Antibiotic Therapy: No Respiratory Rate >20: No Heart Rate >90: No Temp<36 C (96.8 F) or >38.3 C: No SBP <90 or MAP <65 mmHG: No New Acute Mental Status Change: No Is the patient on CPAP, BIPAP,: No Physician Orders Urinalysis (12/26/24 15:32) Chest Xray 1 View (12/26/24 15:32) Vital Signs Date Time Temp Pulse Resp B/P (MAP) Pulse Ox O2 Delivery O2 Flow Rate FiO2 12/26/24 15:17 81 12/26/24 15:09 97.3 82 16 117/62 93 97.3 Laboratory Tests Test 12/26/24 15:59 Lactic Acid Level 1.5 mmol/L (0.4-2.0) White Blood Count 11.5 10^3/uL (4.4-10.8) H Departure 1 Departure Time of Disposition: 19:04 Impression: Primary Impression: Leukocytosis Qualified Codes: D72.825 - Bandemia Additional Impressions: Generalized weakness Acute exacerbation of congestive heart failure Qualified Codes: I50.23 - Acute on chronic systolic (congestive) heart failure Pleural effusion on right Disposition: ADMITTED INPATIENT Condition: Stable Discharged With: Self Critical Care Note Critical Care Time?: No Stability Stability form required: No Heart Score Heart Score: Heart Score Response (Comments) Value History N/A 0 EKG N/A 0 Age N/A 0 Risk Factors N/A 0 Troponin N/A 0 Total 0 I personally scribed for NEW,CHRISTOPHER E METAL BALER (DVRUICH) on 12/26/24 at 15:40. Electronically submitted by Jacquelin Deras (Tyto). I personally scribed for NEW,CHRISTOPHER E METAL BALER (DVRUICH) on 12/26/24 at 16:12. Electronically submitted by Jacquelin Deras (Tyto). I personally scribed for NEW,CHRISTOPHER E METAL BALER (DVRUICH) on 12/26/24 at 16:13. Electronically submitted by Jacquelin Deras (Tyto). NEW,CHRISTOPHER E METAL BALER Dec 26, 2024 15:40
--- NOTE | 2024-12-26 15:59 | DVH ---
Procedure: XY CHEST XRAY 1 VIEW History: cough Comparison: None Technique: Single view of the chest. Findings: Large right pleural effusion with compressive atelectasis. Left lung is clear. Cardiac silhouette is enlarged. Impression: 1. Large right pleural effusion with compressive atelectasis.
[2024-12-26 16:35] LABS: Hematocrit 41.3 % (41.0-53.0); Hemoglobin 13.8 g/dL (13.5-17.5); Mean Corpuscular Hemoglobin 27.4 pg (28.0-32.0); Mean Corpuscular Volume 82.2 fL (80.0-100.0); Nucleated Red Blood Cells % 0.1 %
[2024-12-26 16:51] LABS: Albumin 4.6 g/dL (3.2-4.8); Anion Gap 10 (5-15); BUN/Creatinine Ratio 11.0 (10.0-20.0); Blood Urea Nitrogen 19 mg/dL (9-23); Calcium 9.2 mg/dL (8.7-10.4); Carbon Dioxide 31 mmol/L (20-31); Potassium 3.8 mmol/L (3.5-5.1); Sodium 138 mmol/L (136-145); Total Protein 7.3 g/dL (5.7-8.2)
[2024-12-26 16:52] LABS: Alanine Aminotransferase 9 U/L (7-40); Alkaline Phosphatase 159 U/L (46-116); Bilirubin, Total 1.2 mg/dL (0.2-1.0); Chloride 97 mmol/L (98-107); Glucose 116 mg/dL (74-106)
[2024-12-26 18:41] LABS: COVID19 ANTIGEN SOFIA FIA NEGATIVE (NEGATIVE)
--- NOTE | 2024-12-26 20:28 | DVHHPRES ---
History of Present Illness Resident Creating Document: DEMARIO ARREGUIN RESIDENT History of Present Illness This is an 84-year-old male with past medical history of atrial fibrillation (not on anticoagulation due to chronic thrombocytopenia), HFpEF with EF 60%, CLL, CKD 3A, Hypothyroidism, hypertension presented to the ER with chief complain of generalized body pain and thigh pain. Patient complained of right- sided thigh pain, which started suddenly around midnight, radiating up to the back, pain was described as achy, 8/10, worsens when he tries to lie down, improves on standing up. He denies fever, chills. PMHx: Permanent Atrial fibrillation (not on anticoagulation due to chronic thrombocytopenia), HFpEF with EF 60%, CLL, CKD 3A, Hypothyroidism, hypertension, pleural effusion s/p thoracocentesis PSHx: No significant surgical history Social history: Quit smoking 40 years back, denies alcohol, recreational drug use. Lives in home alone. Full code, next to kin is nicristian Shannon Home medication: Amiodarone, atorvastatin, citalopram, furosemide, gabapentin, levothyroxine, metoprolol succinate, tamsulosin, tramadol, triamcinolone Allergic history: Latex Patient was examined at bedside today. He was saturating 85% without oxygen. He is admitted for further evaluation and management Review of Systems Review of Systems ROS: Constitutional: Cachexia, uncomfortable with pain. HEENT: Denies changes in vision and hearing. Respiratory: Denies shortness of breath and cough Cardiovascular: Denies chest discomfort or palpitations GI: Denies abdominal pain, nausea, vomiting and diarrhea. : Denies dysuria and urinary frequency. Musculoskeletal: Denies myalgias and joint pain Skin: Denies rash and pruritus. Neurological: Denies dizziness, headache, vision or hearing problems Allergies: Coded Allergies: Latex (Verified Allergy, Unknown, 09/15/23) Exam Vital Signs Vital Signs Date Time Temp Pulse Resp B/P (MAP) Pulse Ox O2 Delivery O2 Flow Rate FiO2 12/26/24 15:17 81 12/26/24 15:09 97.3 16 117/62 93 97.3 Exam General: Patient alert and oriented in person, place and time. Patient following commands. HEENT: Normocephalic, atraumatic, moist mucous membranes Respiratory/pulmonary: Reduced breath sounds in right lower lung bennett. Cardiovascular: Normal heart sounds S1 and S2 with no associated murmurs Abdomen: Abdomen nondistended, there is no pain to palpation in any of the abdominal quadrants, no palpable masses. Extremities: Grade 2 pitting edema on heel and distal dorsal left foot. Grade 2 Pitting edema on right dorsal foot Peripheral Pulses: 3+ Radial (R). 3+ Radial (L). 3+ Dorsalis pedis (R). 3+ Dorsalis pedis(L) Skin: No rashes or pruritus, there is no sacral edema present at this time. Neurological: Intact cranial nerves with no focal neurologic deficits Labs/Xrays Labs Test 12/26/24 16:50 12/26/24 15:59 12/26/24 15:38 Range/Units Troponin I High Sensitivity 5 </=54 ng/L White Blood Count 11.5 H 4.4-10.8 10^3/uL Red Blood Count 5.02 4.5-5.90 10^6/uL Hemoglobin 13.8 13.5-17.5 g/dL Hematocrit 41.3 41.0-53.0 % Mean Corpuscular Volume 82.2 80.0-100.0 fL Mean Corpuscular Hemoglobin 27.4 L 28.0-32.0 pg Mean Corpuscular Hemoglobin Concent 33.4 32.0-36.0 g/dL Red Cell Distribution Width 15.7 H 11.8-14.3 % Platelet Count 207 140-450 10^3/uL Mean Platelet Volume 7.6 6.9-10.8 fL Neutrophils (%) (Auto) 59.2 37.0-80.0 % Lymphocytes (%) (Auto) 32.5 10.0-50.0 % Monocytes (%) (Auto) 7.9 0.0-12.0 % Eosinophils (%) (Auto) 0.3 0.0-7.0 % Basophils (%) (Auto) 0.1 0.0-2.0 % Neutrophils # (Auto) 6.8 1.6-8.6 10 ^3/uL Lymphocytes # (Auto) 3.7 0.4-5.4 10 ^3/uL Monocytes # (Auto) 0.9 0-1.3 10 ^3/uL Eosinophils # (Auto) 0 0-0.8 10 ^3/uL Basophils # (Auto) 0 0-0.2 10 ^3/uL Nucleated Red Blood Cells 0.1 % Sodium Level 138 136-145 mmol/L Potassium Level 3.8 3.5-5.1 mmol/L Chloride Level 97 L 98-107 mmol/L Carbon Dioxide Level 31 20-31 mmol/L Anion Gap 10 5-15 Blood Urea Nitrogen 19 9-23 mg/dL Creatinine 1.73 H 0.700-1.30 mg/dL Glomerular Filtration Rate Calc 38 >90 mL/min BUN/Creatinine Ratio 11.0 10.0-20.0 Serum Glucose 116 H 74-106 mg/dL Lactic Acid Level 1.5 0.4-2.0 mmol/L Calcium Level 9.2 8.7-10.4 mg/dL Total Bilirubin 1.2 H 0.2-1.0 mg/dL Aspartate Amino Transferase (AST) 16 13-40 U/L Alanine Aminotransferase (ALT) 9 7-40 U/L Alkaline Phosphatase 159 H 46-116 U/L B-Type Natriuretic Peptide 278.37 0-100 pg/mL Total Protein 7.3 5.7-8.2 g/dL Albumin 4.6 3.2-4.8 g/dL Influenza Type A Antigen Negative Negative Influenza Type B Antigen Negative Negative SARS-CoV-2 Antigen (Rapid) Negative NEGATIVE SEPSIS Sepsis Screen Date sepsis recognized/suspect: Dec 26, 2024 Time Sepsis recognized/suspect: 1512 Recent Procedure: No On Antibiotic Therapy: No Respiratory Rate >20: No Heart Rate >90: No Temp<36 C (96.8 F) or >38.3 C: No SBP <90 or MAP <65 mmHG: No New Acute Mental Status Change: No Is the patient on CPAP, BIPAP,: No Physician Orders Urinalysis (12/26/24 15:32) Chest Xray 1 View (12/26/24 15:32) Vital Signs Date Time Temp Pulse Resp B/P (MAP) Pulse Ox O2 Delivery O2 Flow Rate FiO2 12/26/24 15:17 81 12/26/24 15:09 97.3 82 16 117/62 93 97.3 Laboratory Tests Test 12/26/24 15:59 Lactic Acid Level 1.5 mmol/L (0.4-2.0) White Blood Count 11.5 10^3/uL (4.4-10.8) H Assessment/Plan Assessment/Plan Acute hypoxic respiratory failure Right Pleural effusion Ultrasound shows moderate septated complex right pleural effusion. Influenza, COVID serology negative Thoracocentesis performed, fluid sent for evaluation Chronic diastolic heart failure without exacerbation with EF 60% Rate controlled persistent atrial fibrillation EKG shows Atrial fibrillation, incomplete RBBB and LAFB Echocardiogram ordered Continue furosemide, aspirin, amlodipine Lovenox therapeutic dose CLL on [place] ARBEN on CKD 3B hemodynamically mediated (VMN) Chronic pain NS bolus and maintenance started Low salt diet, maintain hydration Repeat BMP Continue chemotherapeutic home medications Continue gabapentin Hypothyroidism TSH 3.87 Continue levothyroxine Vitamin-D deficiency Supplemented Rule out DVT Elevated D-dimer Ordered lower limb Doppler ultrasound Hyperbilirubinemia Order direct, total bilirubin DIET: Cardiac DVT PROPHYLAXIS: Lovenox GI PROPHYLAXIS: Holding off Protonix due to interaction with chemotherapeutic agent CODE STATUS: Goals of care discussed with patient at bedside for more than 36 minutes. Full code DISPOSITION: Med/surge Patient's status and plan discussed with the patient. Case discussed with Dr. Townsend Plan discussed with: Patient, Other (Friend, nurses) Date of Service: Dec 26, 2024 Billing Provider: CHARISSE DURAND MD Common Visit Codes: 04960-YDVZBXC INP/OBS CARE (HIGH) Secondary Visit Codes: 46018-AGNNSQSL CARE PLAN 30 MINUTES DEMARIO ARREGUIN RESIDENT Dec 26, 2024 20:28 JULIETA KEEN RESIDENT Dec 27, 2024 04:41
--- NOTE | 2024-12-26 20:51 | DVH ---
Exam: US CHEST ULTRASOUND Clinical History: To evaluate for pleural effusion Comparison: XY CHEST XRAY 1 VIEW on DOS: 12/26/24, XY CHEST PORTABLE on DOS: 11/29/23, US THORACENTESI S on DOS: 11/29/23, US CHEST ULTRASOUND on DOS: 11/27/23, CT CHST AB PEL WO CON-NO IV/ORAL on DOS: 11/26 Technique: Targeted sonographic evaluation of the soft tissues of the bilateral chest was obtained utilizing gr ayscale and color Doppler imaging. Findings/Impression: Moderate septated complex right pleural effusion. No left pleural effusion.
[2024-12-26 21:07] LABS: Triglycerides 123.0 mg/dL (< 150)
[2024-12-26 21:08] LABS: Magnesium 2.1 mg/dL (1.6-2.6)
[2024-12-26 21:09] LABS: Cholesterol 115.0 mg/dL (< 200)
[2024-12-26 21:12] LABS: INR 1.01 (0.9-1.15); Partial Thromboplastin Time 25.5 SEC (24.5-34.5); Prothrombin Time 10.7 sec (9.3-11.8)
[2024-12-26 21:17] LABS: HDL Cholesterol 35.0 mg/dL (40-59)
[2024-12-26 21:30] LABS: Lipase 28.0 U/L (12-53)
[2024-12-26] MEDS ORDERED: MORPHINE SULFATE INJ 2 MG/ml SYRG IV PRN (22:00)
[2024-12-26] MEDS ORDERED: ENOXAPARIN SOD 40 MG/0.4 ML SYRINGE SC SCH (22:00)
[2024-12-26 23:23] LABS: Bilirubin, Total 1.0 mg/dL (0.2-1.0)
[2024-12-26 23:27] LABS: Bilirubin, Direct 0.3 mg/dL (<0.3)
[2024-12-26] MEDS: SODIUM CHLORIDE 0.9% 1,000 ML IV ONE (23:41)
[2024-12-27] VITALS (8 sets, daily range): BP systolic 94–122; BP diastolic 62–90; PULSE 68–89; RESP 14–19; TEMP 97.3–98.2; O2SAT 92–98
--- NOTE | 2024-12-27 00:06 | DVH ---
Right lower extremity venous duplex Clinical History: Right thigh pain, elevated D-dimer Comparison: US BILAT LOWER DVT on DOS: 09/15/23 Technique: Duplex Doppler evaluation of the deep venous system of the right lower extremity from the common femo ral vein to the popliteal vein including color Doppler and spectral/pulsed waveform analysis was perf ormed. Findings: The common femoral vein demonstrates appropriate compressibility and waveform variability. There is compressibility/patency of the great saphenous vein at the proximal thigh. The femoral vein demonstrates appropriate compressibility and waveform variability. The deep femoral vein demonstrates appropriate compressibility and waveform variability. The popliteal vein demonstrates appropriate compressibility and waveform variability. There is normal compressibility at the tibioperoneal trunk. Impression: 1. No right femoropopliteal venous thrombosis. 2. Contralateral common femoral vein is patent.
[2024-12-27] MEDS: HYDROcodone-ACET 5/325MG TAB PO PRN (01:48)
[2024-12-27] MEDS: HYDROmorphone HCL 2 MG/ML VL/or syr IV ONE (02:55)
[2024-12-27] MEDS: ONDANSETRON HCL 4 MG/2 ML VIAL IV PRN (02:57)
--- NOTE | 2024-12-27 04:30 | DVH ---
CHEST RADIOGRAPH Indication: s/Post thoracocentesis Technique: Single frontal view of the chest was obtained COMPARISON: US CHEST ULTRASOUND on DOS: 12/26/24, XY CHEST XRAY 1 VIEW on DOS: 12/26/24, XY CHEST POR TABLE on DOS: 11/29/23, US CHEST ULTRASOUND on DOS: 11/27/23, XY CHEST XRAY 1 VIEW on DOS: 11/26/23 FINDINGS: Lines and Tubes: None Lungs: Grossly stable appearing partially loculated moderate right pleural effusion. The left lung i s clear. No pneumothorax. Cardiomediastinal contours: Unremarkable Bones: Unremarkable IMPRESSION: 1. Grossly stable appearing partially loculated moderate right pleural effusion.
[2024-12-27] MEDS: GABAPENTIN 300 MG CAP PO SCH (05:56)
[2024-12-27] MEDS: LEVOTHYROXINE SODIUM 100 MCG TAB PO SCH (05:56)
[2024-12-27] MEDS: ENOXAPARIN SOD 80 MG/0.8ML SYRINGE SC SCH ×2 (05:57→22:38)
[2024-12-27 06:53] LABS: Hematocrit 40.3 % (41.0-53.0); Hemoglobin 13.5 g/dL (13.5-17.5); Mean Corpuscular Hemoglobin 27.8 pg (28.0-32.0); Mean Corpuscular Volume 83.0 fL (80.0-100.0); Nucleated Red Blood Cells % 0.0 %
[2024-12-27 07:13] LABS: Anion Gap 10 (5-15); BUN/Creatinine Ratio 10.9 (10.0-20.0); Blood Urea Nitrogen 19 mg/dL (9-23); Calcium 9.7 mg/dL (8.7-10.4); Chloride 99 mmol/L (98-107); Potassium 3.9 mmol/L (3.5-5.1); Sodium 141 mmol/L (136-145); Total Protein 7.4 g/dL (5.7-8.2)
[2024-12-27 07:14] LABS: Albumin 4.6 g/dL (3.2-4.8); Bilirubin, Total 1.1 mg/dL (0.2-1.0)
[2024-12-27 07:18] LABS: Carbon Dioxide 32 mmol/L (20-31); Glucose 125 mg/dL (74-106)
[2024-12-27 07:20] LABS: Alanine Aminotransferase < 9 U/L (7-40); Alkaline Phosphatase 158 U/L (46-116)
[2024-12-27] MEDS: AMIODARONE HCL 200 MG TAB PO SCH (10:56)
[2024-12-27] MEDS: METOPROLOL SUCCINATE XL 50 MG TAB PO SCH (10:56)
[2024-12-27] MEDS: ATORVASTATIN 20 MG TAB PO SCH (10:57)
[2024-12-27] MEDS: FUROSEMIDE 40 MG TAB PO SCH (10:57)
[2024-12-27] MEDS: ERGOCALCIFEROL 50,000 UNIT(1.25MG) CAP PO SCH (10:57)
[2024-12-27 12:31] LABS: Urine Protein, UAD Negative (Negative)
[2024-12-27 12:35] LABS: Phencyclidine Screen, Urine Neg (NEGATIVE)
[2024-12-27 12:37] LABS: Amphetamine Screen, Urine Neg (NEGATIVE); Barbiturate Scree,Urine Neg (NEGATIVE); Benzodiazephine Screen, Urine Neg (NEGATIVE); Cannabinoid Screen, Urine Neg (NEGATIVE); Cocaine Screen, Urine Neg (NEGATIVE); Opiate Scree,Urine Pos (NEGATIVE)
--- NOTE | 2024-12-27 15:34 | DVHPN2 ---
Reviewed: H&P Changes from previous H/P or p: No Changes General: Per HPI Objective Vitals Vital Signs Date Time Temp Pulse Resp B/P (MAP) Pulse Ox O2 Delivery O2 Flow Rate FiO2 12/27/24 12:30 97.3 74 19 104/65 (78) 98 97.3 12/27/24 08:00 Nasal Cannula* 2 28 Intake/Output Intake and Output 12/27/24 07:00 Intake Total 375 ml Balance 375 ml Intake Oral 0 ml IV Total 375 ml Exam General: Patient alert and oriented in person, place and time. Patient following commands. HEENT: Normocephalic, atraumatic, moist mucous membranes Respiratory/pulmonary: Reduced breath sounds in right lower lung bennett. Cardiovascular: Normal heart sounds S1 and S2 with no associated murmurs Abdomen: Abdomen nondistended, there is no pain to palpation in any of the abdominal quadrants, no palpable masses. Extremities: Grade 2 pitting edema on heel and distal dorsal left foot. Grade 2 Pitting edema on right dorsal foot Peripheral Pulses: 3+ Radial (R). 3+ Radial (L). 3+ Dorsalis pedis (R). 3+ Dorsalis pedis(L) Skin: No rashes or pruritus, there is no sacral edema present at this time. Neurological: Intact cranial nerves with no focal neurologic deficits Medications Current Medications Medications Dose Ordered Sig/Adina Route Start Time Stop Time Status Last Admin Dose Admin Acetaminophen/ Hydrocodone Bitart 1 tab Q4HP PRN PO 12/26/24 22:00 12/27/24 01:48 1 TAB Ondansetron HCl 4 mg Q4HP PRN IV 12/26/24 22:00 12/27/24 02:57 4 MG Morphine Sulfate 2 mg Q4HPRN PRN IV 12/26/24 22:00 Sodium Chloride 1,000 ml @ 125 mls/hr Q8H IV 12/26/24 22:30 12/27/24 05:57 125 MLS/HR Amiodarone HCl 200 mg DAILY PO 12/27/24 10:00 12/27/24 10:56 200 MG Furosemide 40 mg DAILY PO 12/27/24 10:00 12/27/24 10:57 40 MG Gabapentin 300 mg TID PO 12/27/24 06:00 12/27/24 14:30 300 MG Metoprolol Succinate 100 mg DAILY PO 12/27/24 10:00 12/27/24 10:56 100 MG Tamsulosin HCl 0.8 mg QPM PO 12/27/24 18:00 Tramadol HCl 50 mg TID PO 12/27/24 06:00 12/27/24 14:30 50 MG Atorvastatin Calcium 40 mg DAILY PO 12/27/24 10:00 12/27/24 10:57 40 MG Levothyroxine Sodium 200 mcg QAM@0600 PO 12/27/24 06:00 12/27/24 05:56 200 MCG Ergocalciferol 50,000 unit Q7D PO 12/27/24 10:00 12/27/24 10:57 50,000 UNIT Enoxaparin Sodium 70 mg HS SC 12/27/24 01:45 12/27/24 05:57 70 MG Aspirin 81 mg DAILY PO 12/27/24 10:00 12/27/24 10:56 81 MG Laboratory Results Laboratory Tests 12/27/24 06:10 Chemistry Test 12/26/24 15:59 12/27/24 06:10 Albumin 4.6 g/dL (3.2-4.8) 4.6 g/dL (3.2-4.8) Calcium Level 9.2 mg/dL (8.7-10.4) 9.7 mg/dL (8.7-10.4) Magnesium Level 2.1 mg/dL (1.6-2.6) Phosphorus Level 3.4 mg/dL (2.4-5.1) Total Protein 7.3 g/dL (5.7-8.2) 7.4 g/dL (5.7-8.2) Coagulation Test 12/26/24 20:44 Prothrombin Time 10.7 sec (9.3-11.8) Prothrombin Time INR 1.01 (0.9-1.15) Activated Partial Thromboplast Time 25.5 SEC (24.5-34.5) D-Dimer, Quantitative 3.14 mg/L FEU (0.0-0.49) H Lipid panel Test 12/26/24 15:59 Cholesterol Level 115 mg/dL (< 200) HDL Cholesterol 35 mg/dL (40-59) L Lipase 28 U/L (12-53) Triglycerides Level 123 mg/dL (< 150) Cardiac Markers Test 12/26/24 15:59 B-Type Natriuretic Peptide 278.37 pg/mL (0-100) LFT Test 12/26/24 15:59 12/26/24 20:44 12/27/24 06:10 Alanine Aminotransferase (ALT) 9 U/L (7-40) < 9 U/L (7-40) Alkaline Phosphatase 159 U/L (46-116) H 158 U/L (46-116) H Aspartate Amino Transferase (AST) 16 U/L (13-40) 16 U/L (13-40) Total Bilirubin 1.2 mg/dL (0.2-1.0) H 1.0 mg/dL (0.2-1.0) 1.1 mg/dL (0.2-1.0) H Direct Bilirubin 0.3 mg/dL (<0.3) HgA1c, TSH Test 12/26/24 15:59 Hemoglobin A1c 5.4 % A1C (<5.7) Thyroid Stimulating Hormone (TSH) 3.87 uIU/mL (0.55-4.78) Urinalysis Test 12/27/24 11:22 Urine Color Yellow (Yellow) Urine Clarity Clear (Clear) Urine pH 5.0 (5.0-9.0) Urine Specific [place] 1.022 (1.001-1.035) Urine Protein Negative (Negative) Urine Ketones Negative (Negative) Urine Blood Negative /uL (Negative) Urine Nitrite Negative (Negative) Urine Bilirubin Negative (Negative) Urine Urobilinogen Normal mg/dL (Negative) Urine Leukocyte Esterase Trace /uL (Negative) Urine RBC 2 /hpf (0 - 3) Urine Microscopic WBC < 1 /HPF (0-3) Urine Squamous Epithelial Cells Few /hpf (<5) Urine Bacteria None seen /hpf (None Seen) Urine Hyaline Casts Mod /lpf (0 - 2) Urine Mucus Few (None Seen) Urine Glucose Normal mg/dL (Normal) Microbiology Microbiology Date/Time Source Procedure Growth Status 12/27/24 03:25 Pleural Fluid Gram Stain - Final Resulted 12/27/24 03:25 Pleural Fluid Body Fluid Culture Pending Resulted 12/27/24 01:00 Nose MRSA Screen - Final Complete Labs and/or images reviewed: Labs reviewed by me, Image(s) reviewed by me Assessment/Plan Assessment/Plan 84-year-old male with past medical history of atrial fibrillation (not on anticoagulation due to chronic thrombocytopenia), HFpEF with EF 60%, CLL, CKD 3A, Hypothyroidism, hypertension presented to the ER with chief complain of generalized body pain and thigh pain. Patient complained of right-sided thigh pain, which started suddenly around midnight, radiating up to the back, pain was described as achy, 10/22, worsens when he tries to lie down, improves on standing up. He denies fever, chills. 12/27: Patient complain of lower extremity pain, he had extensive including chewing which she platelets 40 years ago but during use he was heavy use of smoking. We will consult pulmonology for pleural effusion, repeat chest x-ray, initial results from thoracentesis shows traumatic tap? , we will get arterial ultrasound bilateral. Patient has significant hearing loss due to age. Start gabapentin. PT. Start antibiotics in case this is pneumonia. Acute hypoxic respiratory failure Right Pleural effusion Ultrasound shows moderate septated complex right pleural effusion. Influenza, COVID serology negative Thoracocentesis performed, fluid sent for evaluation pulm consult Chronic diastolic heart failure without exacerbation with EF 60% Rate controlled persistent atrial fibrillation EKG shows Atrial fibrillation, incomplete RBBB and LAFB Echocardiogram ordered Continue furosemide, aspirin, amlodipine Lovenox therapeutic dose History tobacco abuse Peripheral artery disease likely PT eval, gabapentin 100 mg b.i.d.. CLL on [place] ARBEN on CKD 3B hemodynamically mediated (VMN) Chronic pain NS bolus and maintenance started Low salt diet, maintain hydration Repeat BMP Continue chemotherapeutic home medications Continue gabapentin Hypothyroidism TSH 3.87 Continue levothyroxine Vitamin-D deficiency Supplemented Rule out DVT Elevated D-dimer Ordered lower limb Doppler ultrasound Hyperbilirubinemia Order direct, total bilirubin Med surge Full code Plan discussed with: Patient Date of Service: Dec 27, 2024 Billing Provider: CHARISSE DURAND MD Common Visit Codes: [id number] INP/OBS CARE(HIGH) CHARISSE DURAND MD Dec 27, 2024 15:34
[2024-12-27] MEDS: TAMSULOSIN HYDROCHLORIDE 0.4 MG CAP PO SCH (17:34)
[2024-12-27] MEDS: AZITHROMYCIN 500MG/ 250ML 250 ML IV SCH (18:17)
--- NOTE | 2024-12-27 18:24 | DVH ---
CHEST RADIOGRAPH Indication: interval change pleural effusion . s/p thoracentesis Technique: Single frontal view of the chest was obtained Comparison: XY CHEST XRAY 1 VIEW on DOS: 12/27/24, XY CHEST XRAY 1 VIEW on DOS: 12/26/24, XY CHEST PO RTABLE on DOS: 11/29/23 FINDINGS: Lines and Tubes: None Lungs: Diffuse interstitial prominence. Large right-sided pleural effusion with associated atelectasi s. No pneumothorax. Cardiomediastinal contours: [id number] cardiomegaly Bones: No acute osseous abnormality. IMPRESSION: [id number] cardiomegaly with pulmonary vascular congestion. Large right-sided pleural effusion with associated atelectasis ; relatively unchanged from prior imag ing. Underlying infectious process can not be excluded.
[2024-12-27] MEDS: GABAPENTIN 100 MG CAP PO SCH (22:37)
[2024-12-28 05:00] VITALS: BP 109/57; PULSE 66; RESP 17; TEMP 98.1; O2SAT 96
[2024-12-28 05:48] LABS: Hematocrit 34.9 % (41.0-53.0); Hemoglobin 11.8 g/dL (13.5-17.5); Mean Corpuscular Hemoglobin 28.0 pg (28.0-32.0); Mean Corpuscular Volume 83.1 fL (80.0-100.0); Nucleated Red Blood Cells % 0.0 %
[2024-12-28 06:10] LABS: Albumin 3.7 g/dL (3.2-4.8); Anion Gap 10 (5-15); BUN/Creatinine Ratio 14.9 (10.0-20.0); Bilirubin, Total 0.7 mg/dL (0.2-1.0); Calcium 8.8 mg/dL (8.7-10.4); Carbon Dioxide 29 mmol/L (20-31); Chloride 100 mmol/L (98-107); Glucose 98 mg/dL (74-106); Potassium 4.0 mmol/L (3.5-5.1); Sodium 139 mmol/L (136-145); Total Protein 6.0 g/dL (5.7-8.2)
[2024-12-28 06:11] LABS: Alanine Aminotransferase < 9 U/L (7-40); Alkaline Phosphatase 120 U/L (46-116); Blood Urea Nitrogen 26 mg/dL (9-23)
[2024-12-28 09:00] VITALS: BP 96/61; PULSE 70; RESP 20; TEMP 97.8; O2SAT 96
--- NOTE | 2024-12-28 10:18 | DVHINCON2 ---
Date of service: Dec 27, [address] Townsend Reason for Consultation Right pleural effusion History of Present Illness An 84-year-old man with past medical history of pleural effusion s/p thoracentesis, atrial fibrillation (not on anticoagulation due to chronic thrombocytopenia), HFpEF with EF 60%, CLL, CKD stage 3A, hypothyroidism, and hypertension who presented to the ER on 12/26/24 with c/o generalized body pain and thigh pain. Patient complained of right-sided thigh pain which started suddenly around midnight, radiating up to the back. Pain was described as achy, 8/10, worsened when lying down, improves on standing up. He denied fever or chills. Patient was noted to be saturating at 85% without oxygen. Patient was admitted for further care. Pulmonary consultation is requested for evaluation and management of acute hypoxic respiratory failure and pleural effusion. Review of Systems: 14-point review of systems negative unless otherwise noted above. Past Medical History: Pleural effusion s/p thoracocentesis. Permanent atrial fibrillation (not on anticoagulation due to chronic thrombocytopenia). HFpEF with EF 60%, CLL, CKD stage 3A, hypothyroidism, hypertension. Past Surgical History: Thoracentesis. Medications: Reviewed. Allergies: Latex Family History: No family history of premature CAD. No family history of lung disorders. Social History: Former smoker. Quit smoking 40 years ago. Denies alcohol or recreational drug use. Family History: Patient reports no known family medical history. Allergies: Coded Allergies: Latex (Verified Allergy, Unknown, 09/15/23) Home Meds Active Scripts Amiodarone Hcl (Amiodarone Hcl) 200 Mg Tab, 1 TAB PO DAILY, #30 TAB 5 Refills Prov:ANUPAM OLIVER MD 10/01/23 Reported Medications Patients Own Medication (PATIENTS OWN MEDICATION) ., 1 TAB PO UD for 28 Days, # 56 PTS OWN MED-OBTAIN FROM PT AND SEND TO RX DRUG: CAL[place]ENCE 100 MG TABLET FREQ: TAKE 1 TABLET BY MOUTH DIRECTED 12/27/24 Furosemide (Furosemide) 40 Mg Tab, 1 TAB PO BID for 90 Days, #180 12/27/24 Tamsulosin Hcl (Tamsulosin Hcl) 0.4 Mg Cap, 1 CAP PO DAILY for 90 Days, #90 12/27/24 Gabapentin (Gabapentin) 100 Mg Cap, 1 CAP PO BID for 90 Days, #180 12/27/24 Levothyroxine Sodium (Synthroid) 25 Mcg Tab, 12.5 MG PO DAILY for 90 Days, #45 12/27/24 Metoprolol Succinate (Metoprolol Succinate Er) 50 Mg Tab, 100 MG PO DAILY 10/13/23 Atorvastatin Calcium (ATORVASTATIN CALCIUM) 40 Mg Tab, 1 TAB PO DAILY 09/16/23 Tramadol Hcl (Tramadol Hcl) 50 Mg Tab, 50 MG PO TID, TAB 03/18/17 Citalopram Hydrobromide (Citalopram Hydrobromide) 10 Mg Tab, 10 MG PO DAILY for 30 Days, MG 03/18/17 Current Medications Current Medications Medications (Trade) Dose Ordered Sig/Adina Route PRN Reason Start Time Stop Time Status Last Admin Amiodarone HCl (Cordarone Tablet) 200 mg DAILY PO 12/27/24 10:00 12/27/24 10:56 Furosemide (Lasix Tablet) 40 mg DAILY PO 12/27/24 10:00 12/27/24 10:57 Metoprolol Succinate (Toprol Xl) 100 mg DAILY PO 12/27/24 10:00 12/27/24 10:56 Tamsulosin HCl (Flomax) 0.8 mg QPM PO 12/27/24 18:00 12/27/24 17:34 Atorvastatin Calcium (Lipitor) 40 mg DAILY PO 12/27/24 10:00 12/27/24 10:57 Ergocalciferol (Vitamin D 50,000 Unit) 50,000 unit Q7D PO 12/27/24 10:00 12/27/24 10:57 Aspirin 81 mg DAILY PO 12/27/24 10:00 12/27/24 10:56 Ceftriaxone Sodium 50 ml @ 100 mls/hr DAILY@09 IV 12/27/24 15:30 12/27/24 17:37 Azithromycin 250 ml @ 125 mls/hr DAILY IV 12/27/24 15:30 12/27/24 18:17 Gabapentin (Neurontin Capsule) 100 mg BID PO 12/27/24 22:00 12/27/24 22:37 Enoxaparin Sodium (Lovenox) 80 mg Q12HR SC 12/27/24 22:00 12/27/24 22:38 Vital Signs Vital Signs Date Time Temp Pulse Resp B/P (MAP) Pulse Ox O2 Delivery O2 Flow Rate FiO2 12/28/24 08:00 Nasal Cannula* 2 28 12/28/24 05:00 98.1 66 17 109/57 (51) 96 98.1 Physical Exam Gen.: Patient lying in bed in no apparent distress. On supplemental oxygen. Head: Normocephalic, atraumatic. Eyes: EOMI/PERRLA. Ears: Normal hearing. Normal anatomy. Neck/trachea: Trachea midline, supple. Nose: Normal external anatomy. Mouth: Moist mucous membranes. Chest: Decreased air entry bilaterally. No wheezing or rhonchi. Cardiovascular: Positive S1, positive S2. Regular rate and rhythm. Abdomen: Positive bowel sounds in all 4 quadrants. Soft, non-tender, non- distended. : Deferred. Rectal: Deferred. Skin: Warm, dry. Intact. Extremities: 2+ radial pulses bilaterally. Lower extremity pitting edema noted. Neuro: Awake, alert, oriented x3. No gross motor or sensory deficits. Cranial nerves II through XII intact. Gait not assessed. Labs/Diagnostic Data Labs Test 12/28/24 05:07 12/27/24 11:22 12/27/24 03:25 12/26/24 20:44 Range/Units White Blood Count 9.0 4.4-10.8 10^3/uL Red Blood Count 4.20 L 4.5-5.90 10^6/uL Hemoglobin 11.8 L 13.5-17.5 g/dL Hematocrit 34.9 #L 41.0-53.0 % Mean Corpuscular Volume 83.1 80.0-100.0 fL Mean Corpuscular Hemoglobin 28.0 28.0-32.0 pg Mean Corpuscular Hemoglobin Concent 33.7 32.0-36.0 g/dL Red Cell Distribution Width 16.0 H 11.8-14.3 % Platelet Count 166 140-450 10^3/uL Mean Platelet Volume 7.8 6.9-10.8 fL Neutrophils (%) (Auto) 61.0 37.0-80.0 % Lymphocytes (%) (Auto) 31.6 10.0-50.0 % Monocytes (%) (Auto) 6.9 0.0-12.0 % Eosinophils (%) (Auto) 0.3 0.0-7.0 % Basophils (%) (Auto) 0.2 0.0-2.0 % Neutrophils # (Auto) 5.5 1.6-8.6 10 ^3/uL Lymphocytes # (Auto) 2.8 0.4-5.4 10 ^3/uL Monocytes # (Auto) 0.6 0-1.3 10 ^3/uL Eosinophils # (Auto) 0 0-0.8 10 ^3/uL Basophils # (Auto) 0 0-0.2 10 ^3/uL Nucleated Red Blood Cells 0.0 % Sodium Level 139 136-145 mmol/L Potassium Level 4.0 3.5-5.1 mmol/L Chloride Level 100 98-107 mmol/L Carbon Dioxide Level 29 20-31 mmol/L Anion Gap 10 5-15 Blood Urea Nitrogen 26 H 9-23 mg/dL Creatinine 1.75 H 0.700-1.30 mg/dL Glomerular Filtration Rate Calc 38 >90 mL/min BUN/Creatinine Ratio 14.9 10.0-20.0 Serum Glucose 98 74-106 mg/dL Calcium Level 8.8 8.7-10.4 mg/dL Total Bilirubin 0.7 0.2-1.0 mg/dL Aspartate Amino Transferase (AST) 14 13-40 U/L Alanine Aminotransferase (ALT) < 9 7-40 U/L Alkaline Phosphatase 120 H 46-116 U/L Total Protein 6.0 5.7-8.2 g/dL Albumin 3.7 3.2-4.8 g/dL Urine Color Yellow Yellow Urine Clarity Clear Clear Urine pH 5.0 5.0-9.0 Urine Specific [place] 1.022 1.001-1.035 Urine Protein Negative Negative Urine Ketones Negative Negative Urine Blood Negative Negative /uL Urine Nitrite Negative Negative Urine Bilirubin Negative Negative Urine Urobilinogen Normal Negative mg/dL Urine Leukocyte Esterase Trace Negative /uL Urine RBC 2 0 - 3 /hpf Urine Microscopic WBC < 1 0-3 /HPF Urine Squamous Epithelial Cells Few <5 /hpf Urine Bacteria None seen None Seen /hpf Urine Hyaline Casts Mod 0 - 2 /lpf Urine Mucus Few None Seen Urine Glucose Normal Normal mg/dL Urine Opiates Screen Pos NEGATIVE Urine Fentanyl Screen Neg NEGATIVE Urine Barbiturates Screen Neg NEGATIVE Urine Phencyclidine Screen Neg NEGATIVE Urine Amphetamines Screen Neg NEGATIVE Urine Benzodiazepines Screen Neg NEGATIVE Urine Cocaine Screen Neg NEGATIVE Urine Cannabinoids Screen Neg NEGATIVE Body Fluid Source Pleural fluid Body Fluid pH 8.0 Body Fluid WBC (Manual) 0 0-200 CUMM Body Fluid RBC (Manual) 59920 H 0-2000 CUMM Body Fluid Mononuclear Cells % Body Fluid Polymorphonuclear Cells 0-25 % Prothrombin Time 10.7 9.3-11.8 sec Prothrombin Time INR 1.01 0.9-1.15 Activated Partial Thromboplast Time 25.5 24.5-34.5 SEC D-Dimer, Quantitative 3.14 H 0.0-0.49 mg/L FEU Direct Bilirubin 0.3 <0.3 mg/dL Test 12/26/24 16:50 12/26/24 15:59 12/26/24 15:38 Range/Units Troponin I High Sensitivity 5 </=54 ng/L Hemoglobin A1c 5.4 <5.7 % A1C Lactic Acid Level 1.5 0.4-2.0 mmol/L Phosphorus Level 3.4 2.4-5.1 mg/dL Magnesium Level 2.1 1.6-2.6 mg/dL C-Reactive Protein High Sensitivity 0.92 <1.0 mg/dL B-Type Natriuretic Peptide 278.37 0-100 pg/mL Triglycerides Level 123 < 150 mg/dL Cholesterol Level 115 < 200 mg/dL LDL Cholesterol 64 < 100 mg/dL HDL Cholesterol 35 L 40-59 mg/dL Lipase 28 12-53 U/L Vitamin B12 Level 458 211-911 pg/mL Vitamin D 25-Hydroxy 19.0 L 30.0-100 ng/mL Thyroid Stimulating Hormone (TSH) 3.87 0.55-4.78 uIU/mL Influenza Type A Antigen Negative Negative Influenza Type B Antigen Negative Negative SARS-CoV-2 Antigen (Rapid) Negative NEGATIVE Microbiology Date/Time Source Procedure Growth Status 12/27/24 03:25 Pleural Fluid Gram Stain - Final Resulted 12/27/24 03:25 Pleural Fluid Body Fluid Culture Pending Resulted 12/27/24 01:00 Nose MRSA Screen - Final Complete 12/26/24 22:38 Blood Blood Culture - Preliminary NO GROWTH AFTER 24 HOURS OF INCUBATION. Resulted Assessment Impression: Acute hypoxic respiratory failure Right pleural effusion, septated, loculated Atelectasis Chronic diastolic heart failure, EF 60% Persistent atrial fibrillation, rate controlled Hx of nicotine dependence Chronic lymphocytic leukemia ARBEN on CKD stage 3B Plan: Supplemental oxygen Titrate to keep O2 sats above 92%. Influenza, COVID serology negative Ultrasound showed moderate septated complex right pleural effusion. S/p thoracentesis, fluid sent for evaluation. Post-procedure CXR showed [id number] cardiomegaly with pulmonary vascular congestion. Large right-sided pleural effusion with associated atelectasis. Right lower extremity venous ultrasound showed no e/o deep venous thrombosis. Follow up Echocardiogram Follow up Cardiology recommendations. Continue antibiotics F/u cultures Incentive spirometry d/t atelectasis Amiodarone PO for atrial fibrillation Diurese as tolerated with Lasix Follow up Nephrology recommendations Monitor renal function. Monitor electrolytes. Supplement as necessary. Monitor ins and outs. DVT prophylaxis - Lovenox. Prognosis: Poor given patient's multiple co-morbidities. Rest of plan per hospitalist and other consultants. Thank you, Dr. Townsend, for allowing me to participate in this patient's care. Further recommendations will depend on the patient's clinical course. Please do not hesitate to contact me if you have any questions or concerns. This medical document was created using an electronic medical record system with [employer] / [employer] dictation system. Although these documentations are being carefully reviewed, there may still be some phonetic and typographical changes. The errors are purely typographical, due to imperfection on the software program, and do not reflect any compromise in the patient's medical care. Plan discussed with: Patient, Other (RN/Dr. Townsend) Visit Coding Pulmonary Billing Provider: CHENG MARINELLI MD Date of Service if different f: Dec 27, 2024 Common Visit Codes: [id number] INP/OBS CARE (HIGH) CHENG MARINELLI MD Dec 28, 2024 10:17
--- NOTE | 2024-12-28 11:04 | DVHSR ---
APPROVED REPORT EXAM: Two-dimensional and M-mode echocardiogram with Doppler and color Doppler. Blood Pressure: 107/68 mmHg INDICATION CHF RISK FACTORS Height: 67, Weight: 171 DIMENSIONS LVDd4.9 (3.8-5.7cm)LA (2D)4.3 (1.9-4.0cm)Aortic Root3.9 (2.0-3.7cm) LVDs3.0 (2.5-4.0cm)LA (MM) (1.9-4.0cm)Aortic Cusp Exc1.2 (1.5-2.0cm) EF (%) 70.0 (55-70%)Rt. Atrium5.7 (1.9-4.0cm)Asc. Aorta cm Mitral Valve MitralMitral Stenosis E wave1.00m/sMV Mean GR.mmHg A wavem/sMV Peak GR.112mmHg E/A ratio0.02D MVAcm2 Aortic Valve Aortic ValveAortic Stenosis V10.78m/Matteo Mean GR.8mmHg V21.77m/Matteo Peak GR.13mmHg LVOT Diameter1.8 (1.8-2.4cm)Doppler AVA1.12cm2 AI P 1/2 Hnyd635.91ms Pulmonic Valve V20.87m/s Tricuspid Valve TR Velocity3.29m/s [id number] Conclusion Sinus rhythm. Aortic root enlargement. Noted left atrial enlargement. Mild aortic sclerosis. The mitral and pulmonic or structurally normal. Tricuspid is normal. EF of 55% with normal RV function. There is moderate mitral insufficiency. Trace aortic insufficiency. Moderate tricuspid insufficienc y. No pericardial effusion masses or vegetations.
[2024-12-28] MEDS: METOPROLOL SUCCINATE XL 50 MG TAB PO SCH (11:17)
[2024-12-28] MEDS: FUROSEMIDE 40 MG TAB PO SCH (11:18)
--- NOTE | 2024-12-28 12:07 | DVHPN2 ---
Reviewed: H&P Changes from previous H/P or p: No Changes General: Per HPI Objective Vitals Vital Signs Date Time Temp Pulse Resp B/P (MAP) Pulse Ox O2 Delivery O2 Flow Rate FiO2 12/28/24 11:18 94/59 12/28/24 09:00 97.8 70 20 96 97.8 12/28/24 08:00 Nasal Cannula* 2 28 Intake/Output Intake and Output 12/28/24 07:00 Intake Total 610 ml Output Total 475 ml Balance 135 ml Intake Oral 560 ml IV Total 50 ml Output Urine Total 475 ml # Voids 1 Exam General: Patient alert and oriented in person, place and time. Patient following commands. HEENT: Normocephalic, atraumatic, moist mucous membranes Respiratory/pulmonary: Reduced breath sounds in right lower lung bennett. Cardiovascular: Normal heart sounds S1 and S2 with no associated murmurs Abdomen: Abdomen nondistended, there is no pain to palpation in any of the abdominal quadrants, no palpable masses. Extremities: Grade 2 pitting edema on heel and distal dorsal left foot. Grade 2 Pitting edema on right dorsal foot Peripheral Pulses: 3+ Radial (R). 3+ Radial (L). 3+ Dorsalis pedis (R). 3+ Dorsalis pedis(L) Skin: No rashes or pruritus, there is no sacral edema present at this time. Neurological: Intact cranial nerves with no focal neurologic deficits Medications Current Medications Medications Dose Ordered Sig/Adina Route Start Time Stop Time Status Last Admin Dose Admin Acetaminophen/ Hydrocodone Bitart 1 tab Q4HP PRN PO 12/26/24 22:00 12/27/24 01:48 1 TAB Ondansetron HCl 4 mg Q4HP PRN IV 12/26/24 22:00 12/27/24 02:57 4 MG Morphine Sulfate 2 mg Q4HPRN PRN IV 12/26/24 22:00 Amiodarone HCl 200 mg DAILY PO 12/27/24 10:00 12/28/24 10:17 200 MG Gabapentin 300 mg TID PO 12/27/24 06:00 12/28/24 05:17 300 MG Tamsulosin HCl 0.8 mg QPM PO 12/27/24 18:00 12/27/24 17:34 0.8 MG Tramadol HCl 50 mg TID PO 12/27/24 06:00 12/28/24 05:20 50 MG Atorvastatin Calcium 40 mg DAILY PO 12/27/24 10:00 12/28/24 10:18 40 MG Levothyroxine Sodium 200 mcg QAM@0600 PO 12/27/24 06:00 12/28/24 05:17 200 MCG Ergocalciferol 50,000 unit Q7D PO 12/27/24 10:00 12/27/24 10:57 50,000 UNIT Aspirin 81 mg DAILY PO 12/27/24 10:00 12/28/24 10:18 81 MG Ceftriaxone Sodium 50 ml @ 100 mls/hr DAILY@09 IV 12/27/24 15:30 12/28/24 10:14 100 MLS/HR Azithromycin 250 ml @ 125 mls/hr DAILY IV 12/27/24 15:30 12/28/24 11:19 125 MLS/HR Gabapentin 100 mg BID PO 12/27/24 22:00 12/28/24 10:18 100 MG Enoxaparin Sodium 80 mg Q12HR SC 12/27/24 22:00 12/28/24 10:19 80 MG Furosemide 20 mg DAILY PO 12/28/24 10:15 12/28/24 11:18 20 MG Metoprolol Succinate 25 mg DAILY PO 12/28/24 10:15 Laboratory Results Laboratory Tests 12/28/24 05:07 Chemistry Test 12/28/24 05:07 Albumin 3.7 g/dL (3.2-4.8) Calcium Level 8.8 mg/dL (8.7-10.4) Total Protein 6.0 g/dL (5.7-8.2) LFT Test 12/28/24 05:07 Alanine Aminotransferase (ALT) < 9 U/L (7-40) Alkaline Phosphatase 120 U/L (46-116) H Aspartate Amino Transferase (AST) 14 U/L (13-40) Total Bilirubin 0.7 mg/dL (0.2-1.0) Urinalysis Test 12/27/24 11:22 Urine Color Yellow (Yellow) Urine Clarity Clear (Clear) Urine pH 5.0 (5.0-9.0) Urine Specific [place] 1.022 (1.001-1.035) Urine Protein Negative (Negative) Urine Ketones Negative (Negative) Urine Blood Negative /uL (Negative) Urine Nitrite Negative (Negative) Urine Bilirubin Negative (Negative) Urine Urobilinogen Normal mg/dL (Negative) Urine Leukocyte Esterase Trace /uL (Negative) Urine RBC 2 /hpf (0 - 3) Urine Microscopic WBC < 1 /HPF (0-3) Urine Squamous Epithelial Cells Few /hpf (<5) Urine Bacteria None seen /hpf (None Seen) Urine Hyaline Casts Mod /lpf (0 - 2) Urine Mucus Few (None Seen) Urine Glucose Normal mg/dL (Normal) Microbiology Microbiology Date/Time Source Procedure Growth Status 12/27/24 03:25 Pleural Fluid Gram Stain - Final Resulted 12/27/24 03:25 Pleural Fluid Body Fluid Culture Pending Resulted 12/27/24 01:00 Nose MRSA Screen - Final Complete 12/26/24 22:38 Blood Blood Culture - Preliminary NO GROWTH AFTER 24 HOURS OF INCUBATION. Resulted Labs and/or images reviewed: Labs reviewed by me, Image(s) reviewed by me Assessment/Plan Assessment/Plan 84-year-old male with past medical history of atrial fibrillation (not on anticoagulation due to chronic thrombocytopenia), HFpEF with EF 60%, CLL, CKD 3A, Hypothyroidism, hypertension presented to the ER with chief complain of generalized body pain and thigh pain. Patient complained of right-sided thigh pain, which started suddenly around midnight, radiating up to the back, pain was described as achy, 8/10, worsens when he tries to lie down, improves on standing up. He denies fever, chills. 12/27: Patient complain of lower extremity pain, he had extensive including chewing which she platelets 40 years ago but during use he was heavy use of smoking. We will consult pulmonology for pleural effusion, repeat chest x-ray, initial results from thoracentesis shows traumatic tap? , we will get arterial ultrasound bilateral. Patient has significant hearing loss due to age. Start gabapentin. PT. Start antibiotics in case this is pneumonia. 12/28: Pulmonology evaluated patient today, we will get CT chest without contrast, bedside ultrasound with pulmonology showing no residual effusion. On day 1 admitting team removed approximately 500 cc fluid, labs still pending but initial colostomy showing a lot of blood/traumatic tap? . The bedside Doppler, patient has dopplerable pulses, likely still has PID and we will need outpatient workup with PCP. We will continue to encourage working with PT. Of note with thoracentesis, cytology was not sent. Acute hypoxic respiratory failure Right Pleural effusion Ultrasound shows moderate septated complex right pleural effusion. Influenza, COVID serology negative Thoracocentesis performed, fluid sent for evaluation pulm consult Chronic diastolic heart failure without exacerbation with EF 60% Rate controlled persistent atrial fibrillation EKG shows Atrial fibrillation, incomplete RBBB and LAFB Echocardiogram ordered Continue furosemide, aspirin, amlodipine Lovenox therapeutic dose History tobacco abuse Peripheral artery disease likely PT eval, gabapentin 100 mg b.i.d.. CLL on [place] ARBEN on CKD 3B hemodynamically mediated (VMN) Chronic pain NS bolus and maintenance started Low salt diet, maintain hydration Repeat BMP Continue chemotherapeutic home medications Continue gabapentin Hypothyroidism TSH 3.87 Continue levothyroxine Vitamin-D deficiency Supplemented Rule out DVT Elevated D-dimer Ordered lower limb Doppler ultrasound Hyperbilirubinemia Order direct, total bilirubin Med surge Full code Plan discussed with: Patient My Orders Orders - CHARISSE DURAND MD Procedure Category Date Status Time *Consult CONS 12/27/24 Transmitted 15:28 Chest Portable XY 12/27/24 Resulted 15:28 Ceftriaxone 1gm/50ml PHA 12/27/24 In Process (Rocephin) 15:30 Azithromycin 500mg/ PHA 12/27/24 In Process 250ml (Zithromax 50 15:30 Pt Request For Service PT 12/27/24 Logged 15:28 Gabapentin Capsule PHA 12/27/24 In Process (Neurontin Capsule) 22:00 Enoxaparin Sodium PHA 12/27/24 In Process (Lovenox) 22:00 Furosemide Tablet PHA 12/28/24 In Process (Lasix Tablet) 10:15 Metoprolol Xl PHA 12/28/24 In Process Succinate (Toprol Xl) 10:[address] 12/28/24 Transmitted 12:03 Date of Service: Dec 28, 2024 Billing Provider: CHARISSE DURAND MD Common Visit Codes: [id number] INP/OBS CARE(HIGH) CHARISSE DURAND MD Dec 28, 2024 12:07
[2024-12-28 13:00] VITALS: BP 94/59; PULSE 71; RESP 18; TEMP 98.6; O2SAT 97
--- NOTE | 2024-12-28 13:19 | DVH ---
Procedure: CT CHEST WITHOUT CONTRAST Reason for study/Clinical History: effusion, loculations possible, mutliple opacities right. Comparison Study: XY CHEST PORTABLE on DOS: 12/27/24, XY CHEST XRAY 1 VIEW on DOS: 12/27/24, US CHEST ULTRASOUND on DOS: 12/26/24, XY CHEST XRAY 1 VIEW on DOS: 12/26/24, XY CHEST PORTABLE on DOS: 4 TECHNIQUE: Multidetector CT of the chest was performed from the lung apices to the upper abdomen with out the use of intravenous contract. Axial, coronal and sagittal multiplanar reformats were performed . Radiation Dose Information: CT Dose: CTDI volume is 9.65 mGy. Dose-length product is 330.66 mGy*cm The dose indicators for CT are the volume Computed Tomography (CT) Dose Index (CTDIvol) and the Dose Length Product (DLP), and are measured in units of mGy and mGy-cm, respectively. These indicators are not patient dose, but values generated from the CT scanner acquisition factors. The report includes radiation exposure data for exposures received during this examination. FINDINGS: Lower neck: Unremarkable. Lungs: Right lower lobe compressive atelectasis. Heart/Vascular Structures: Cardiomegaly. Coronary artery calcifications. Vascular calcifications of t he aorta. Lymph Nodes: Indeterminate prominent mediastinal lymph nodes . For example, right lower paratracheal node measures 1.8 cm. Pleura: Moderate right pleural effusion demonstrating moderate diffuse pleural thickening and nodular ity most prominent in the right lung base. Musculoskeletal: No acute osseous abnormality. Soft tissues: Normal. Upper abdomen: Small to moderate hiatal hernia. IMPRESSION: Moderate right pleural effusion with moderate diffuse pleural thickening and nodularity most prominen t in the right lung base. This may represent loculated pleural effusion and/or malignant effusion. Indeterminate prominent mediastinal lymph nodes. Cardiomegaly. Small to moderate hiatal hernia. Radiation optimization: All CT scans at this facility use at least one of these dose optimization babatunde hniques: automated exposure control mA and/or kV adjustment per patient size (includes targeted exam s where dose is matched to clinical indication) or iterative reconstruction.
[2024-12-28 14:07] LABS: Albumin, Body Fluid 1.9 g/dL (Not Estab.); Glucose, Body Fluid 42.0 mg/dL (.); LD, Body Fluid 1626.0 IU/L (.)
--- NOTE | 2024-12-28 15:59 | DVHPN2 ---
Subjective Patient seen and examined at bedside. Patient remains on supplemental oxygen. Overnight events reviewed. No new complaints this morning. Reviewed: H&P Changes from previous H/P or p: No Changes General: Per HPI Objective Vitals Vital Signs Date Time Temp Pulse Resp B/P (MAP) Pulse Ox O2 Delivery O2 Flow Rate FiO2 12/28/24 11:18 94/59 12/28/24 09:00 97.8 70 20 96 97.8 12/28/24 08:00 Nasal Cannula* 2 28 Intake/Output Intake and Output 12/28/24 07:00 Intake Total 610 ml Output Total 475 ml Balance 135 ml Intake Oral 560 ml IV Total 50 ml Output Urine Total 475 ml # Voids 1 Exam Gen.: Patient lying in bed in no apparent distress. On supplemental oxygen. Head: Normocephalic, atraumatic. Eyes: EOMI/PERRLA. Ears: Normal hearing. Normal anatomy. Neck/trachea: Trachea midline, supple. Nose: Normal external anatomy. Mouth: Moist mucous membranes. Chest: Decreased air entry bilaterally. No wheezing or rhonchi. Cardiovascular: Positive S1, positive S2. Regular rate and rhythm. Abdomen: Positive bowel sounds in all 4 quadrants. Soft, non-tender, non- distended. : Deferred. Rectal: Deferred. Skin: Warm, dry. Intact. Extremities: 2+ radial pulses bilaterally. Lower extremity pitting edema noted. Neuro: Awake, alert, oriented x3. No gross motor or sensory deficits. Cranial nerves II through XII intact. Gait not assessed. Medications Current Medications Medications Dose Ordered Sig/Adina Route Start Time Stop Time Status Last Admin Dose Admin Acetaminophen/ Hydrocodone Bitart 1 tab Q4HP PRN PO 12/26/24 22:00 12/27/24 01:48 1 TAB Ondansetron HCl 4 mg Q4HP PRN IV 12/26/24 22:00 12/27/24 02:57 4 MG Morphine Sulfate 2 mg Q4HPRN PRN IV 12/26/24 22:00 Amiodarone HCl 200 mg DAILY PO 12/27/24 10:00 12/28/24 10:17 200 MG Gabapentin 300 mg TID PO 12/27/24 06:00 12/28/24 05:17 300 MG Tamsulosin HCl 0.8 mg QPM PO 12/27/24 18:00 12/27/24 17:34 0.8 MG Tramadol HCl 50 mg TID PO 12/27/24 06:00 12/28/24 05:20 50 MG Atorvastatin Calcium 40 mg DAILY PO 12/27/24 10:00 12/28/24 10:18 40 MG Levothyroxine Sodium 200 mcg QAM@0600 PO 12/27/24 06:00 12/28/24 05:17 200 MCG Ergocalciferol 50,000 unit Q7D PO 12/27/24 10:00 12/27/24 10:57 50,000 UNIT Aspirin 81 mg DAILY PO 12/27/24 10:00 12/28/24 10:18 81 MG Ceftriaxone Sodium 50 ml @ 100 mls/hr DAILY@09 IV 12/27/24 15:30 12/28/24 10:14 100 MLS/HR Azithromycin 250 ml @ 125 mls/hr DAILY IV 12/27/24 15:30 12/28/24 11:19 125 MLS/HR Gabapentin 100 mg BID PO 12/27/24 22:00 12/28/24 10:18 100 MG Enoxaparin Sodium 80 mg Q12HR SC 12/27/24 22:00 12/28/24 10:19 80 MG Furosemide 20 mg DAILY PO 12/28/24 10:15 12/28/24 11:18 20 MG Metoprolol Succinate 25 mg DAILY PO 12/28/24 10:15 Laboratory Results Laboratory Tests 12/28/24 05:07 Chemistry Test 12/28/24 05:07 Albumin 3.7 g/dL (3.2-4.8) Calcium Level 8.8 mg/dL (8.7-10.4) Total Protein 6.0 g/dL (5.7-8.2) LFT Test 12/28/24 05:07 Alanine Aminotransferase (ALT) < 9 U/L (7-40) Alkaline Phosphatase 120 U/L (46-116) H Aspartate Amino Transferase (AST) 14 U/L (13-40) Total Bilirubin 0.7 mg/dL (0.2-1.0) Urinalysis Test 12/27/24 11:22 Urine Color Yellow (Yellow) Urine Clarity Clear (Clear) Urine pH 5.0 (5.0-9.0) Urine Specific [place] 1.022 (1.001-1.035) Urine Protein Negative (Negative) Urine Ketones Negative (Negative) Urine Blood Negative /uL (Negative) Urine Nitrite Negative (Negative) Urine Bilirubin Negative (Negative) Urine Urobilinogen Normal mg/dL (Negative) Urine Leukocyte Esterase Trace /uL (Negative) Urine RBC 2 /hpf (0 - 3) Urine Microscopic WBC < 1 /HPF (0-3) Urine Squamous Epithelial Cells Few /hpf (<5) Urine Bacteria None seen /hpf (None Seen) Urine Hyaline Casts Mod /lpf (0 - 2) Urine Mucus Few (None Seen) Urine Glucose Normal mg/dL (Normal) Microbiology Microbiology Date/Time Source Procedure Growth Status 12/27/24 03:25 Pleural Fluid Gram Stain - Final Resulted 12/27/24 03:25 Pleural Fluid Body Fluid Culture - Preliminary Resulted 12/27/24 01:00 Nose MRSA Screen - Final Complete 12/26/24 22:38 Blood Blood Culture - Preliminary NO GROWTH AFTER 24 HOURS OF INCUBATION. Resulted Assessment/Plan Assessment/Plan Impression: Acute hypoxic respiratory failure Right pleural effusion Atelectasis Chronic diastolic heart failure, EF 60% Persistent atrial fibrillation, rate controlled Hx of nicotine dependence Chronic lymphocytic leukemia ARBEN on CKD stage 3B Events: On supplemental o2 Limited chest US demonstrates loculated/septated pleural effusion Obtain dedicated CT chest without contrast for interval changes. CT chest report and images reviewed. [id number] hiatal hernia. Indeterminate prominent mediastinal lymph nodes. Loculated right pleural effusion versus malignant effusion. Moderate right pleural effusion and moderate diffuse pleural thickening and nodularity most prominent at the right lung base. F/u pleural fluid analysis. Pleural fluid culture: No growth thus far. Moderate RBCs. Continue antibiotics. On therapeutic Lovenox. On Lasix for diuresis. Monitor renal function Monitor electrolytes. Rest of plan as outlined below. Plan: Supplemental oxygen Titrate to keep O2 sats above 92%. Influenza, COVID serology negative Ultrasound showed moderate septated complex right pleural effusion. S/p thoracentesis, fluid sent for evaluation. Post-procedure CXR showed [id number] cardiomegaly with pulmonary vascular congestion. Large right-sided pleural effusion with associated atelectasis. Right lower extremity venous ultrasound showed no e/o deep venous thrombosis. Follow up Echocardiogram Follow up Cardiology recommendations. Continue antibiotics F/u cultures Incentive spirometry d/t atelectasis Amiodarone PO for atrial fibrillation Diurese as tolerated with Lasix Follow up Nephrology recommendations Monitor renal function. Monitor electrolytes. Supplement as necessary. Monitor ins and outs. DVT prophylaxis - Lovenox. Prognosis: Poor given patient's multiple co-morbidities. Rest of plan per hospitalist and other consultants. Thank you, Dr. Townsend, for allowing me to participate in this patient's care. Further recommendations will depend on the patient's clinical course. Please do not hesitate to contact me if you have any questions or concerns. This medical document was created using an electronic medical record system with [email or web address] dictation system. Although these documentations are being carefully reviewed, there may still be some phonetic and typographical changes. The errors are purely typographical, due to imperfection on the software program, and do not reflect any compromise in the patient's medical care. Plan discussed with: Patient, Other (RN Amanda, MD Dr Townsend) Visit Coding Pulmonary Billing Provider: CHENG MARINELLI MD Date of Service if different f: Dec 28, 2024 Common Visit Codes: [id number] INP/OBS CARE(HIGH) CHENG MARINELLI MD Dec 28, 2024 15:59
[2024-12-28 17:00] VITALS: BP 95/64; PULSE 64; RESP 17; TEMP 98.2; O2SAT 97
[2024-12-28 19:40] VITALS: PULSE 70; RESP 18
[2024-12-28 21:00] VITALS: BP 97/56; PULSE 70; RESP 17; TEMP 97.9; O2SAT 97
[2024-12-28] MEDS: CALQUENCE 100 MG PO ONE (21:30)
[2024-12-29] VITALS (8 sets, daily range): BP systolic 86–138; BP diastolic 47–93; PULSE 63–78; RESP 17–20; TEMP 96.8–98.3; O2SAT 97–99
[2024-12-29 05:42] LABS: Anion Gap 8 (5-15); Chloride 100 mmol/L (98-107); Potassium 4.2 mmol/L (3.5-5.1); Sodium 139 mmol/L (136-145)
[2024-12-29 05:45] LABS: Calcium 8.4 mg/dL (8.7-10.4); Carbon Dioxide 31 mmol/L (20-31)
[2024-12-29 05:48] LABS: BUN/Creatinine Ratio 15.1 (10.0-20.0); Glucose 100 mg/dL (74-106)
[2024-12-29 06:00] LABS: Blood Urea Nitrogen 27 mg/dL (9-23)
[2024-12-29] MEDS: CALQUENCE 100 MG PO SCH (10:00)
--- NOTE | 2024-12-29 12:02 | DVHPN2 ---
Subjective DOS: 12/29/2024 Patient seen and examined at bedside. Patient remains on supplemental oxygen. Overnight events reviewed. No new complaints this morning. Reviewed: H&P Changes from previous H/P or p: No Changes General: Per HPI Objective Vitals Vital Signs Date Time Temp Pulse Resp B/P (MAP) Pulse Ox O2 Delivery O2 Flow Rate FiO2 12/29/24 10:44 105/69 12/29/24 10:41 69 12/29/24 08:21 97.7 20 98 97.7 12/28/24 19:40 Nasal Cannula* 2 28 Intake/Output Intake and Output 12/29/24 07:00 Intake Total 1620 ml Balance 1620 ml Intake Oral 1320 ml IV Total 300 ml # Voids 4 Exam Gen.: Patient lying in bed in no apparent distress. On supplemental oxygen. Head: Normocephalic, atraumatic. Eyes: EOMI/PERRLA. Ears: Normal hearing. Normal anatomy. Neck/trachea: Trachea midline, supple. Nose: Normal external anatomy. Mouth: Moist mucous membranes. Chest: Decreased air entry bilaterally. No wheezing or rhonchi. Cardiovascular: Positive S1, positive S2. Regular rate and rhythm. Abdomen: Positive bowel sounds in all 4 quadrants. Soft, non-tender, non- distended. : Deferred. Rectal: Deferred. Skin: Warm, dry. Intact. Extremities: 2+ radial pulses bilaterally. Lower extremity pitting edema noted. Neuro: Awake, alert, oriented x3. No gross motor or sensory deficits. Cranial nerves II through XII intact. Gait not assessed. Medications Current Medications Medications Dose Ordered Sig/[facility] Route Start Time Stop Time Status Last Admin Dose Admin Acetaminophen/ Hydrocodone Bitart 1 tab Q4HP PRN PO 12/26/24 22:00 12/27/24 01:48 1 TAB Ondansetron HCl 4 mg Q4HP PRN IV 12/26/24 22:00 12/27/24 02:57 4 MG Morphine Sulfate 2 mg Q4HPRN PRN IV 12/26/24 22:00 Amiodarone HCl 200 mg DAILY PO 12/27/24 10:00 12/29/24 10:44 200 MG Gabapentin 300 mg TID PO 12/27/24 06:00 12/29/24 05:14 300 MG Tamsulosin HCl 0.8 mg QPM PO 12/27/24 18:00 12/28/24 17:53 0.8 MG Tramadol HCl 50 mg TID PO 12/27/24 06:00 12/29/24 05:15 50 MG Atorvastatin Calcium 40 mg DAILY PO 12/27/24 10:00 12/29/24 10:42 40 MG Levothyroxine Sodium 200 mcg QAM@0600 PO 12/27/24 06:00 12/29/24 05:14 200 MCG Ergocalciferol 50,000 unit Q7D PO 12/27/24 10:00 12/27/24 10:57 50,000 UNIT Aspirin 81 mg DAILY PO 12/27/24 10:00 12/29/24 10:42 81 MG Ceftriaxone Sodium 50 ml @ 100 mls/hr DAILY@09 IV 12/27/24 15:30 12/29/24 08:55 100 MLS/HR Azithromycin 250 ml @ 125 mls/hr DAILY IV 12/27/24 15:30 12/29/24 10:34 125 MLS/HR Gabapentin 100 mg BID PO 12/27/24 22:00 12/29/24 10:42 100 MG Enoxaparin Sodium 80 mg Q12HR SC 12/27/24 22:00 12/29/24 10:45 80 MG Furosemide 20 mg DAILY PO 12/28/24 10:15 12/29/24 10:44 20 MG Metoprolol Succinate 25 mg DAILY PO 12/28/24 10:15 12/29/24 10:41 25 MG Patient Own Medication 1 BID PO 12/29/24 10:00 12/29/24 10:00 1 Laboratory Results Laboratory Tests 12/28/24 05:07 12/29/24 05:00 Chemistry Test 12/29/24 05:00 Calcium Level 8.4 mg/dL (8.7-10.4) L Urinalysis Test 12/27/24 11:22 Urine Color Yellow (Yellow) Urine Clarity Clear (Clear) Urine pH 5.0 (5.0-9.0) Urine Specific [place] 1.022 (1.001-1.035) Urine Protein Negative (Negative) Urine Ketones Negative (Negative) Urine Blood Negative /uL (Negative) Urine Nitrite Negative (Negative) Urine Bilirubin Negative (Negative) Urine Urobilinogen Normal mg/dL (Negative) Urine Leukocyte Esterase Trace /uL (Negative) Urine RBC 2 /hpf (0 - 3) Urine Microscopic WBC < 1 /HPF (0-3) Urine Squamous Epithelial Cells Few /hpf (<5) Urine Bacteria None seen /hpf (None Seen) Urine Hyaline Casts Mod /lpf (0 - 2) Urine Mucus Few (None Seen) Urine Glucose Normal mg/dL (Normal) Microbiology Microbiology Date/Time Source Procedure Growth Status 12/27/24 03:25 Pleural Fluid Gram Stain - Final Resulted 12/27/24 03:25 Pleural Fluid Body Fluid Culture - Preliminary Resulted 12/27/24 01:00 Nose MRSA Screen - Final Complete 12/26/24 22:38 Blood Blood Culture - Preliminary NO GROWTH AFTER 48 HOURS OF INCUBATION. Resulted Assessment/Plan Assessment/Plan Impression: Acute hypoxic respiratory failure Right pleural effusion Atelectasis Chronic diastolic heart failure, EF 60% Persistent atrial fibrillation, rate controlled Hx of nicotine dependence Chronic lymphocytic leukemia ARBEN on CKD stage 3B Events: On supplemental o2 No distress. Sitter at bedside. Limited chest US demonstrates loculated/septated pleural effusion Obtain dedicated CT chest without contrast for interval changes. CT chest report and images reviewed. [id number] hiatal hernia. Indeterminate prominent mediastinal lymph nodes. Loculated right pleural effusion versus malignant effusion. Moderate right pleural effusion and moderate diffuse pleural thickening and nodularity most prominent at the right lung base. F/u pleural fluid analysis. Pleural fluid culture: No growth thus far. Moderate RBCs. Continue antibiotics. Amiodarone PO Blood pressure control. On therapeutic Lovenox. On Lasix for diuresis. Monitor renal function Monitor electrolytes. Supplement as necessary. Labs and imaging reviewed. Rest of plan as outlined below. Plan: Supplemental oxygen Titrate to keep O2 sats above 92%. Influenza, COVID serology negative Ultrasound showed moderate septated complex right pleural effusion. S/p thoracentesis, fluid sent for evaluation. Post-procedure CXR showed [id number] cardiomegaly with pulmonary vascular congestion. Large right-sided pleural effusion with associated atelectasis. Right lower extremity venous ultrasound showed no e/o deep venous thrombosis. Echocardiogram reviewed; RVSP 48mmHg Cardiology recommendations appreciated. Continue antibiotics F/u cultures Incentive spirometry d/t atelectasis Amiodarone PO for atrial fibrillation Diurese as tolerated with Lasix Follow up Nephrology recommendations Monitor renal function. Monitor electrolytes. Supplement as necessary. Monitor ins and outs. DVT prophylaxis - Lovenox. Prognosis: Poor given patient's multiple co-morbidities. Rest of plan per hospitalist and other consultants. Thank you, Dr. Townsend, for allowing me to participate in this patient's care. Further recommendations will depend on the patient's clinical course. Please do not hesitate to contact me if you have any questions or concerns. This medical document was created using an electronic medical record system with [employer] dictation system. Although these documentations are being carefully reviewed, there may still be some phonetic and typographical changes. The errors are purely typographical, due to imperfection on the software program, and do not reflect any compromise in the patient's medical care. Plan discussed with: Patient, Other (STEPH Bey) Visit Coding Pulmonary Billing Provider: CHENG MARINELLI MD Date of Service if different f: Dec 29, 2024 Common Visit Codes: [id number] INP/OBS CARE(HIGH) CHENG MARINELLI MD Dec 29, 2024 12:02
[2024-12-29 13:37] LABS: Base Excess 2.6 mmol/L (-2.0-3.0)
[2024-12-29] MEDS ORDERED: AZIT500T66 PO (14:03)
[2024-12-29] MEDS ORDERED: ALBUAER3 IN (14:04)
--- NOTE | 2024-12-29 14:05 | DVHDS2 ---
Discharge Summary Date of Admission Dec 26, 2024 at 21:48 Date of Discharge: Dec 29, 2024 Labs/Diagnostic Data: Laboratory Results Test 12/29/24 12:14 12/29/24 05:00 12/28/24 05:07 12/27/24 11:22 Blood Gas Specimen Type Arterial Blood Gas Sample Site Right radial Blood Gas Patient Temperature 37.0 Arterial Blood Date Drawn [id number] Arterial Blood pH 7.380 (7.350-7.450) Arterial Blood Partial Pressure CO2 49.2 mmHg (35.0-48.0) Arterial Blood Partial Pressure O2 56.9 mmHg (83.0-108.0) Arterial Blood HCO3 28.5 mmol/L (21.0-28.0) Arterial Blood Oxygen Saturation 88.7 % (94.0-98.0) Arterial Blood Base Excess 2.6 mmol/L (-2.0-3.0) Arterial Blood Oxyhemoglobin 87.3 % (94.0-98.0) Arterial Blood Carboxyhemoglobin 1.1 % (0.5-1.5) Arterial Blood Methemoglobin 0.5 % (0.0-1.5) [place]en Test Yes Blood Gas Total Hemoglobin 12.60 g/dL (13.5-17.5) Blood Gas Modality Room air FiO2 % 21.0 Sodium Level 139 mmol/L (136-145) Potassium Level 4.2 mmol/L (3.5-5.1) Chloride Level 100 mmol/L (98-107) Carbon Dioxide Level 31 mmol/L (20-31) Anion Gap 8 (5-15) Blood Urea Nitrogen 27 mg/dL (9-23) Creatinine 1.79 mg/dL (0.700-1.30) Glomerular Filtration Rate Calc 37 mL/min (>90) BUN/Creatinine Ratio 15.1 (10.0-20.0) Serum Glucose 100 mg/dL (74-106) Calcium Level 8.4 mg/dL (8.7-10.4) White Blood Count 9.0 10^3/uL (4.4-10.8) Red Blood Count 4.20 10^6/uL (4.5-5.90) Hemoglobin 11.8 g/dL (13.5-17.5) Hematocrit 34.9 % (41.0-53.0) Mean Corpuscular Volume 83.1 fL (80.0-100.0) Mean Corpuscular Hemoglobin 28.0 pg (28.0-32.0) Mean Corpuscular Hemoglobin Concent 33.7 g/dL (32.0-36.0) Red Cell Distribution Width 16.0 % (11.8-14.3) Platelet Count 166 10^3/uL (140-450) Mean Platelet Volume 7.8 fL (6.9-10.8) Neutrophils (%) (Auto) 61.0 % (37.0-80.0) Lymphocytes (%) (Auto) 31.6 % (10.0-50.0) Monocytes (%) (Auto) 6.9 % (0.0-12.0) Eosinophils (%) (Auto) 0.3 % (0.0-7.0) Basophils (%) (Auto) 0.2 % (0.0-2.0) Neutrophils # (Auto) 5.5 10 ^3/uL (1.6-8.6) Lymphocytes # (Auto) 2.8 10 ^3/uL (0.4-5.4) Monocytes # (Auto) 0.6 10 ^3/uL (0-1.3) Eosinophils # (Auto) 0 10 ^3/uL (0-0.8) Basophils # (Auto) 0 10 ^3/uL (0-0.2) Nucleated Red Blood Cells 0.0 % Total Bilirubin 0.7 mg/dL (0.2-1.0) Aspartate Amino Transferase (AST) 14 U/L (13-40) Alanine Aminotransferase (ALT) < 9 U/L (7-40) Alkaline Phosphatase 120 U/L (46-116) Total Protein 6.0 g/dL (5.7-8.2) Albumin 3.7 g/dL (3.2-4.8) Urine Color Yellow (Yellow) Urine Clarity Clear (Clear) Urine pH 5.0 (5.0-9.0) Urine Specific [place] 1.022 (1.001-1.035) Urine Protein Negative (Negative) Urine Ketones Negative (Negative) Urine Blood Negative /uL (Negative) Urine Nitrite Negative (Negative) Urine Bilirubin Negative (Negative) Urine Urobilinogen Normal mg/dL (Negative) Urine Leukocyte Esterase Trace /uL (Negative) Urine RBC 2 /hpf (0 - 3) Urine Microscopic WBC < 1 /HPF (0-3) Urine Squamous Epithelial Cells Few /hpf (<5) Urine Bacteria None seen /hpf (None Seen) Urine Hyaline Casts Mod /lpf (0 - 2) Urine Mucus Few (None Seen) Urine Glucose Normal mg/dL (Normal) Urine Opiates Screen Pos (NEGATIVE) Urine Fentanyl Screen Neg (NEGATIVE) Urine Barbiturates Screen Neg (NEGATIVE) Urine Phencyclidine Screen Neg (NEGATIVE) Urine Amphetamines Screen Neg (NEGATIVE) Urine Benzodiazepines Screen Neg (NEGATIVE) Urine Cocaine Screen Neg (NEGATIVE) Urine Cannabinoids Screen Neg (NEGATIVE) Test 12/27/24 03:25 12/26/24 20:44 12/26/24 16:50 12/26/24 15:59 Body Fluid Source Pleural fluid Body Fluid pH 8.0 Body Fluid WBC (Manual) 0 CUMM (0-200) Body Fluid RBC (Manual) 66215 CUMM (0-2000) Body Fluid Mononuclear Cells % Body Fluid Polymorphonuclear Cells % (0-25) Body Fluid Glucose 42 mg/dL (.) Body Fluid Total Protein 3.5 g/dL (.) Body Fluid Albumin 1.9 g/dL (Not Estab.) Body Fluid Lactate Dehydrogenase 1626 IU/L (.) Prothrombin Time 10.7 sec (9.3-11.8) Prothrombin Time INR 1.01 (0.9-1.15) Activated Partial Thromboplast Time 25.5 SEC (24.5-34.5) D-Dimer, Quantitative 3.14 mg/L FEU (0.0-0.49) Direct Bilirubin 0.3 mg/dL (<0.3) Troponin I High Sensitivity 5 ng/L (</=54) Hemoglobin A1c 5.4 % A1C (<5.7) Lactic Acid Level 1.5 mmol/L (0.4-2.0) Phosphorus Level 3.4 mg/dL (2.4-5.1) Magnesium Level 2.1 mg/dL (1.6-2.6) C-Reactive Protein High Sensitivity 0.92 mg/dL (<1.0) B-Type Natriuretic Peptide 278.37 pg/mL (0-100) Triglycerides Level 123 mg/dL (< 150) Cholesterol Level 115 mg/dL (< 200) LDL Cholesterol 64 mg/dL (< 100) HDL Cholesterol 35 mg/dL (40-59) Lipase 28 U/L (12-53) Vitamin B12 Level 458 pg/mL (211-911) Vitamin D 25-Hydroxy 19.0 ng/mL (30.0-100) Thyroid Stimulating Hormone (TSH) 3.87 uIU/mL (0.55-4.78) Test 12/26/24 15:38 Influenza Type A Antigen Negative (Negative) Influenza Type B Antigen Negative (Negative) SARS-CoV-2 Antigen (Rapid) Negative (NEGATIVE) Other Laboratory Tests 12/29/24 05:00 12/28/24 05:07 Brief Hx & Hospital Course: 84-year-old male with past medical history of atrial fibrillation (not on anticoagulation due to chronic thrombocytopenia), HFpEF with EF 60%, CLL, CKD 3A, Hypothyroidism, hypertension presented to the ER with chief complain of generalized body pain and thigh pain. Patient complained of right-sided thigh pain, which started suddenly around midnight, radiating up to the back, pain was described as achy, /, worsens when he tries to lie down, improves on standing up. He denies fever, chills. 12/27: Patient complain of lower extremity pain, he had extensive including chewing which she platelets 40 years ago but during use he was heavy use of smoking. We will consult pulmonology for pleural effusion, repeat chest x-ray, initial results from thoracentesis shows traumatic tap? , we will get arterial ultrasound bilateral. Patient has significant hearing loss due to age. Start gabapentin. PT. Start antibiotics in case this is pneumonia. 12/28: Pulmonology evaluated patient today, we will get CT chest without contrast, bedside ultrasound with pulmonology showing no residual effusion. On day 1 admitting team removed approximately 500 cc fluid, labs still pending but initial colostomy showing a lot of blood/traumatic tap? . The bedside Doppler, patient has dopplerable pulses, likely still has PID and we will need outpatient workup with PCP. We will continue to encourage working with PT. Of note with thoracentesis, cytology was not sent. 12/29: Patient does not on oxygen, room air ABG showing no oxygen requirement. Pulmonology following showing no reaccumulation of fluid. CT showing loculated effusions. Cytology was not sent. Discussed with pulmonology patient will be followed up outpatient with pulmonology where as needed effusion can be reached drain for cytology and workup. Patient needs urgent follow up with pulmonology outpatient. Pleural fluid workup appears to be transudative by protein. Serum LDH was not measured. - prior to discharge microbiology reports that pleural fluid is still available, cytology order placed., patient has concern for noncompliance we will place social order for home health with medication management Diagnosis: Acute hypoxic respiratory failure, , resolved Right Pleural effusion, transudative, status post thoracentesis Pneumonia, community-acquired, possible, Gram-negative/g positive possible Multiloculated effusions right lobe Chronic diastolic heart failure without exacerbation with EF 60% Rate controlled persistent atrial fibrillation CLL on Calquence CKD 3B, ARBEN ruled out Chronic pain Hypothyroidism Vitamin-D deficiency Ruled out DVT Hyperbilirubinemia, resolved Plan: - urgent follow up with pulmonology - continue azithromycin 500 mg daily for 5 days - albuterol inhaler as needed for shortness of breath - home health for medication management - continue other home medications - Follow up with PCP to review discharge Condition at Discharge: Fair Final Diagnosis/Problems List Acute hypoxic respiratory failure, , resolved Right Pleural effusion, transudative, status post thoracentesis Pneumonia, community-acquired, possible, Gram-negative/g positive possible Multiloculated effusions right lobe Chronic diastolic heart failure without exacerbation with EF 60% Rate controlled persistent atrial fibrillation CLL on Calquence CKD 3B, ARBEN ruled out Chronic pain Hypothyroidism Vitamin-D deficiency Ruled out DVT Hyperbilirubinemia, resolved Discharge Disposition: Home Discharge Instruct/Medications Scheduled Amiodarone Hcl (Amiodarone Hcl), 1 TAB PO DAILY Atorvastatin Calcium (Atorvastatin Calcium), 1 TAB PO DAILY, (Reported) Azithromycin (Azithromycin), 1 TAB PO DAILY Citalopram Hydrobromide (Citalopram Hydrobromide), 10 MG PO DAILY, (Reported) Furosemide (Furosemide), 1 TAB PO BID, (Reported) Gabapentin (Gabapentin), 1 CAP PO BID, (Reported) Levothyroxine Sodium (Synthroid), 12.5 MG PO DAILY, (Reported) Metoprolol Succinate (Metoprolol Succinate Er), 100 MG PO DAILY, (Reported) Patients Own Medication (Patients Own Medication), 1 TAB PO UD, (Reported) Tamsulosin Hcl (Tamsulosin Hcl), 1 CAP PO DAILY, (Reported) Tramadol Hcl (Tramadol Hcl), 50 MG PO TID, (Reported) Scheduled PRN Albuterol Sulfate (Ventolin Ayse), 90 MCG IN TIDP PRN Discharge Statement: "Patient was advised to return to the ER or call 911 if any headaches, dizziness, shortness of breath, chest pain, abdominal pain, bleeding, fevers, or worsening of medical condition. Patient was counseled about treatment plan, medications, possible side effects, patientverbalized understanding. All questions were answered to the best of my ability. This discharge took greater then 30 minutes in planning, reviewing documentation, counseling the patient, and discussing with other team members." ASSESSMENT ASSESSMENT Assessment Date of Service: Dec 29, 2024 Billing Provider: CHARISSE DURAND MD Common Visit Codes: 63999-CLK/OBS DISCH DAY >30min CHARISSE DURAND MD Dec 29, 2024 14:05
--- NOTE | 2024-12-29 14:12 | DVHPN2 ---
Reviewed: H&P Changes from previous H/P or p: No Changes General: Per HPI Objective Vitals Vital Signs Date Time Temp Pulse Resp B/P (MAP) Pulse Ox O2 Delivery O2 Flow Rate FiO2 12/29/24 13:54 78 107/50 (69) 12/29/24 13:14 97.6 18 98 97.6 12/29/24 08:00 Nasal Cannula* 2 28 Intake/Output Intake and Output 12/29/24 07:00 Intake Total 1620 ml Balance 1620 ml Intake Oral 1320 ml IV Total 300 ml # Voids 4 Exam General: Patient alert and oriented in person, place and time. Patient following commands. HEENT: Normocephalic, atraumatic, moist mucous membranes Respiratory/pulmonary: Reduced breath sounds in right lower lung bennett. Cardiovascular: Normal heart sounds S1 and S2 with no associated murmurs Abdomen: Abdomen nondistended, there is no pain to palpation in any of the abdominal quadrants, no palpable masses. Extremities: Grade 2 pitting edema on heel and distal dorsal left foot. Grade 2 Pitting edema on right dorsal foot Peripheral Pulses: 3+ Radial (R). 3+ Radial (L). 3+ Dorsalis pedis (R). 3+ Dorsalis pedis(L) Skin: No rashes or pruritus, there is no sacral edema present at this time. Neurological: Intact cranial nerves with no focal neurologic deficits Medications Current Medications Medications Dose Ordered Sig/Adina Route Start Time Stop Time Status Last Admin Dose Admin Acetaminophen/ Hydrocodone Bitart 1 tab Q4HP PRN PO 12/26/24 22:00 12/27/24 01:48 1 TAB Ondansetron HCl 4 mg Q4HP PRN IV 12/26/24 22:00 12/27/24 02:57 4 MG Morphine Sulfate 2 mg Q4HPRN PRN IV 12/26/24 22:00 Amiodarone HCl 200 mg DAILY PO 12/27/24 10:00 12/29/24 10:44 200 MG Gabapentin 300 mg TID PO 12/27/24 06:00 12/29/24 05:14 300 MG Tamsulosin HCl 0.8 mg QPM PO 12/27/24 18:00 12/28/24 17:53 0.8 MG Tramadol HCl 50 mg TID PO 12/27/24 06:00 12/29/24 05:15 50 MG Atorvastatin Calcium 40 mg DAILY PO 12/27/24 10:00 12/29/24 10:42 40 MG Levothyroxine Sodium 200 mcg QAM@0600 PO 12/27/24 06:00 12/29/24 05:14 200 MCG Ergocalciferol 50,000 unit Q7D PO 12/27/24 10:00 12/27/24 10:57 50,000 UNIT Aspirin 81 mg DAILY PO 12/27/24 10:00 12/29/24 10:42 81 MG Ceftriaxone Sodium 50 ml @ 100 mls/hr DAILY@09 IV 12/27/24 15:30 12/29/24 08:55 100 MLS/HR Azithromycin 250 ml @ 125 mls/hr DAILY IV 12/27/24 15:30 12/29/24 10:34 125 MLS/HR Gabapentin 100 mg BID PO 12/27/24 22:00 12/29/24 10:42 100 MG Enoxaparin Sodium 80 mg Q12HR SC 12/27/24 22:00 12/29/24 10:45 80 MG Furosemide 20 mg DAILY PO 12/28/24 10:15 12/29/24 10:44 20 MG Metoprolol Succinate 25 mg DAILY PO 12/28/24 10:15 12/29/24 10:41 25 MG Patient Own Medication 1 BID PO 12/29/24 10:00 12/29/24 10:00 1 Laboratory Results Laboratory Tests 12/28/24 05:07 12/29/24 05:00 Chemistry Test 12/29/24 05:00 Calcium Level 8.4 mg/dL (8.7-10.4) L Urinalysis Test 12/27/24 11:22 Urine Color Yellow (Yellow) Urine Clarity Clear (Clear) Urine pH 5.0 (5.0-9.0) Urine Specific [place] 1.022 (1.001-1.035) Urine Protein Negative (Negative) Urine Ketones Negative (Negative) Urine Blood Negative /uL (Negative) Urine Nitrite Negative (Negative) Urine Bilirubin Negative (Negative) Urine Urobilinogen Normal mg/dL (Negative) Urine Leukocyte Esterase Trace /uL (Negative) Urine RBC 2 /hpf (0 - 3) Urine Microscopic WBC < 1 /HPF (0-3) Urine Squamous Epithelial Cells Few /hpf (<5) Urine Bacteria None seen /hpf (None Seen) Urine Hyaline Casts Mod /lpf (0 - 2) Urine Mucus Few (None Seen) Urine Glucose Normal mg/dL (Normal) Blood Gas Results Test 12/29/24 12:14 Arterial Blood pH 7.380 (7.350-7.450) FiO2 % 21.0 Microbiology Microbiology Date/Time Source Procedure Growth Status 12/27/24 03:25 Pleural Fluid Gram Stain - Final Resulted 12/27/24 03:25 Pleural Fluid Body Fluid Culture - Preliminary Resulted 12/27/24 01:00 Nose MRSA Screen - Final Complete 12/26/24 22:38 Blood Blood Culture - Preliminary NO GROWTH AFTER 48 HOURS OF INCUBATION. Resulted Labs and/or images reviewed: Labs reviewed by me, Image(s) reviewed by me Assessment/Plan Assessment/Plan 84-year-old male with past medical history of atrial fibrillation (not on anticoagulation due to chronic thrombocytopenia), HFpEF with EF 60%, CLL, CKD 3A, Hypothyroidism, hypertension presented to the ER with chief complain of generalized body pain and thigh pain. Patient complained of right-sided thigh pain, which started suddenly around midnight, radiating up to the back, pain was described as achy, 10/22, worsens when he tries to lie down, improves on standing up. He denies fever, chills. 12/27: Patient complain of lower extremity pain, he had extensive including chewing which she platelets 40 years ago but during use he was heavy use of smoking. We will consult pulmonology for pleural effusion, repeat chest x-ray, initial results from thoracentesis shows traumatic tap? , we will get arterial ultrasound bilateral. Patient has significant hearing loss due to age. Start gabapentin. PT. Start antibiotics in case this is pneumonia. 12/28: Pulmonology evaluated patient today, we will get CT chest without contrast, bedside ultrasound with pulmonology showing no residual effusion. On day 1 admitting team removed approximately 500 cc fluid, labs still pending but initial colostomy showing a lot of blood/traumatic tap? . The bedside Doppler, patient has dopplerable pulses, likely still has PID and we will need outpatient workup with PCP. We will continue to encourage working with PT. Of note with thoracentesis, cytology was not sent. 12/29: Patient does not on oxygen, room air ABG showing no oxygen requirement. Pulmonology following showing no reaccumulation of fluid. CT showing loculated effusions. Cytology was not sent. Discussed with pulmonology patient will be followed up outpatient with pulmonology where as needed effusion can be reached drain for cytology and workup. Patient needs urgent follow up with pulmonology outpatient. Pleural fluid workup appears to be transudative by protein. Serum LDH was not measured. - prior to discharge microbiology reports that pleural fluid is still available, cytology order placed., patient has concern for noncompliance we will place social order for home health with medication management. Patient has discharge plan for azithromycin 500 mg for 5 days, urgent follow up with pulmonology, albuterol inhaler prn for shortness of breath, home health for medication management. - discharge was canceled patient was weak while working with PT. We will get orthostatic vitals, give IV fluids 500 cc bolus, continuing diet. Patient likely needs PT sniff rehab, we will follow up with PT. Diagnosis: Acute hypoxic respiratory failure, , resolved Right Pleural effusion, transudative, status post thoracentesis Pneumonia, community-acquired, possible, Gram-negative/g positive possible Multiloculated effusions right lobe Chronic diastolic heart failure without exacerbation with EF 60% Peripheral artery disease likely Rate controlled persistent atrial fibrillation CLL on Calqu[place] CKD 3B, ARBEN ruled out Chronic pain Hypothyroidism Vitamin-D deficiency Ruled out DVT Hyperbilirubinemia, resolved History tobacco abuse Plan: , appreciate pulmonology follow up and following Continue medications for AFib, home meds furosemide aspirin amlodipine, Lovenox therapeutic PT eval appreciate following Gabapentin 100 mg b.i.d. Synthroid home dose Med surge Full code Plan discussed with: Patient My Orders Orders - CHARISSE DURAND MD Procedure Category Date Status Time Patients Own PHA 12/29/24 In Process Medication 10:00 Abg W/ Co-Ox RT 12/29/24 Logged 11:50 * Room Cleaner CONS 12/29/24 Transmitted Consult Cytology MICHEL 12/29/24 Transmitted 13:58 Date of Service: Dec 29, 2024 Billing Provider: CHARISSE DURAND MD Common Visit Codes: [id number] INP/OBS CARE(HIGH) CHARISSE DURAND MD Dec 29, 2024 14:12
[2024-12-29] MEDS: SODIUM CHLORIDE 0.9% 500 ML IV ONE (14:15)
[2024-12-30 01:00] VITALS: BP 111/71; PULSE 60; RESP 18; TEMP 98.2; O2SAT 98
[2024-12-30 05:00] VITALS: BP 117/75; PULSE 60; RESP 16; TEMP 97.5; O2SAT 97
[2024-12-30 05:58] LABS: Hematocrit 33.4 % (41.0-53.0); Hemoglobin 11.0 g/dL (13.5-17.5); Mean Corpuscular Hemoglobin 27.8 pg (28.0-32.0); Mean Corpuscular Volume 84.2 fL (80.0-100.0); Nucleated Red Blood Cells % 0.1 %
[2024-12-30 06:08] LABS: Albumin 3.7 g/dL (3.2-4.8); Alkaline Phosphatase 101 U/L (46-116); Anion Gap 8 (5-15); BUN/Creatinine Ratio 14.5 (10.0-20.0); Blood Urea Nitrogen 23 mg/dL (9-23); Chloride 102 mmol/L (98-107); Glucose 94 mg/dL (74-106); Potassium 4.5 mmol/L (3.5-5.1); Sodium 141 mmol/L (136-145); Total Protein 5.8 g/dL (5.7-8.2)
[2024-12-30 06:09] LABS: Bilirubin, Total 0.4 mg/dL (0.2-1.0)
[2024-12-30 06:14] LABS: Carbon Dioxide 31 mmol/L (20-31)
[2024-12-30 06:15] LABS: Alanine Aminotransferase < 9 U/L (7-40); Calcium 8.3 mg/dL (8.7-10.4)
--- NOTE | 2024-12-30 08:26 | DVHPN2 ---
Reviewed: H&P Changes from previous H/P or p: No Changes General: Per HPI Objective Vitals Vital Signs Date Time Temp Pulse Resp B/P (MAP) Pulse Ox O2 Delivery O2 Flow Rate FiO2 12/30/24 05:00 97.5 60 16 117/75 (89) 97 97.5 12/29/24 20:00 Nasal Cannula* 2 28 Intake/Output Intake and Output 12/30/24 07:00 Intake Total 1130 ml Balance 1130 ml Intake Oral 1080 ml IV Total 50 ml # Voids 5 # Bowel Movements 1 Exam General: Patient alert and oriented in person, place and time. Patient following commands. HEENT: Normocephalic, atraumatic, moist mucous membranes Respiratory/pulmonary: Reduced breath sounds in right lower lung bennett. Cardiovascular: Normal heart sounds S1 and S2 with no associated murmurs Abdomen: Abdomen nondistended, there is no pain to palpation in any of the abdominal quadrants, no palpable masses. Extremities: Grade 2 pitting edema on heel and distal dorsal left foot. Grade 2 Pitting edema on right dorsal foot Peripheral Pulses: 3+ Radial (R). 3+ Radial (L). 3+ Dorsalis pedis (R). 3+ Dorsalis pedis(L) Skin: No rashes or pruritus, there is no sacral edema present at this time. Neurological: Intact cranial nerves with no focal neurologic deficits Medications Current Medications Medications Dose Ordered Sig/Adina Route Start Time Stop Time Status Last Admin Dose Admin Acetaminophen/ Hydrocodone Bitart 1 tab Q4HP PRN PO 12/26/24 22:00 12/27/24 01:48 1 TAB Ondansetron HCl 4 mg Q4HP PRN IV 12/26/24 22:00 12/27/24 02:57 4 MG Morphine Sulfate 2 mg Q4HPRN PRN IV 12/26/24 22:00 Amiodarone HCl 200 mg DAILY PO 12/27/24 10:00 12/29/24 10:44 200 MG Tamsulosin HCl 0.8 mg QPM PO 12/27/24 18:00 12/29/24 17:36 0.8 MG Tramadol HCl 50 mg TID PO 12/27/24 06:00 12/30/24 05:31 50 MG Atorvastatin Calcium 40 mg DAILY PO 12/27/24 10:00 12/29/24 10:42 40 MG Levothyroxine Sodium 200 mcg QAM@0600 PO 12/27/24 06:00 12/30/24 05:31 200 MCG Ergocalciferol 50,000 unit Q7D PO 12/27/24 10:00 12/27/24 10:57 50,000 UNIT Aspirin 81 mg DAILY PO 12/27/24 10:00 12/29/24 10:42 81 MG Ceftriaxone Sodium 50 ml @ 100 mls/hr DAILY@09 IV 12/27/24 15:30 12/29/24 08:55 100 MLS/HR Azithromycin 250 ml @ 125 mls/hr DAILY IV 12/27/24 15:30 12/29/24 10:34 125 MLS/HR Gabapentin 100 mg BID PO 12/27/24 22:00 12/29/24 21:28 100 MG Enoxaparin Sodium 80 mg Q12HR SC 12/27/24 22:00 12/29/24 21:29 80 MG Furosemide 20 mg DAILY PO 12/28/24 10:15 12/29/24 10:44 20 MG Metoprolol Succinate 25 mg DAILY PO 12/28/24 10:15 12/29/24 10:41 25 MG Patient Own Medication 1 BID PO 12/29/24 10:00 12/29/24 21:27 1 Laboratory Results Laboratory Tests 12/30/24 05:07 Chemistry Test 12/30/24 05:07 Albumin 3.7 g/dL (3.2-4.8) Calcium Level 8.3 mg/dL (8.7-10.4) L Total Protein 5.8 g/dL (5.7-8.2) LFT Test 12/30/24 05:07 Alanine Aminotransferase (ALT) < 9 U/L (7-40) Alkaline Phosphatase 101 U/L (46-116) Aspartate Amino Transferase (AST) 13 U/L (13-40) Total Bilirubin 0.4 mg/dL (0.2-1.0) Urinalysis Test 12/27/24 11:22 Urine Color Yellow (Yellow) Urine Clarity Clear (Clear) Urine pH 5.0 (5.0-9.0) Urine Specific [place] 1.022 (1.001-1.035) Urine Protein Negative (Negative) Urine Ketones Negative (Negative) Urine Blood Negative /uL (Negative) Urine Nitrite Negative (Negative) Urine Bilirubin Negative (Negative) Urine Urobilinogen Normal mg/dL (Negative) Urine Leukocyte Esterase Trace /uL (Negative) Urine RBC 2 /hpf (0 - 3) Urine Microscopic WBC < 1 /HPF (0-3) Urine Squamous Epithelial Cells Few /hpf (<5) Urine Bacteria None seen /hpf (None Seen) Urine Hyaline Casts Mod /lpf (0 - 2) Urine Mucus Few (None Seen) Urine Glucose Normal mg/dL (Normal) Blood Gas Results Test 12/29/24 12:14 Arterial Blood pH 7.380 (7.350-7.450) FiO2 % 21.0 Microbiology Microbiology Date/Time Source Procedure Growth Status 12/27/24 03:25 Pleural Fluid Gram Stain - Final Resulted 12/27/24 03:25 Pleural Fluid Body Fluid Culture - Preliminary Resulted 12/27/24 01:00 Nose MRSA Screen - Final Complete 12/26/24 22:38 Blood Blood Culture - Preliminary NO GROWTH AFTER 72 HOURS OF INCUBATION. Resulted Labs and/or images reviewed: Labs reviewed by me, Image(s) reviewed by me Assessment/Plan Assessment/Plan 84-year-old male with past medical history of atrial fibrillation (not on anticoagulation due to chronic thrombocytopenia), HFpEF with EF 60%, CLL, CKD 3A, Hypothyroidism, hypertension presented to the ER with chief complain of generalized body pain and thigh pain. Patient complained of right-sided thigh pain, which started suddenly around midnight, radiating up to the back, pain was described as achy, 8/10, worsens when he tries to lie down, improves on standing up. He denies fever, chills. -12/27: Patient complain of lower extremity pain, he had extensive including chewing which she platelets 40 years ago but during use he was heavy use of smoking. We will consult pulmonology for pleural effusion, repeat chest x-ray, initial results from thoracentesis shows traumatic tap? , we will get arterial ultrasound bilateral. Patient has significant hearing loss due to age. Start gabapentin. PT. Start antibiotics in case this is pneumonia. -12/28: Pulmonology evaluated patient today, we will get CT chest without contrast, bedside ultrasound with pulmonology showing no residual effusion. On day 1 admitting team removed approximately 500 cc fluid, labs still pending but initial colostomy showing a lot of blood/traumatic tap? . The bedside Doppler, patient has dopplerable pulses, likely still has PID and we will need outpatient workup with PCP. We will continue to encourage working with PT. Of note with thoracentesis, cytology was not sent. -12/29: Patient does not on oxygen, room air ABG showing no oxygen requirement. Pulmonology following showing no reaccumulation of fluid. CT showing loculated effusions. Cytology was not sent. Discussed with pulmonology patient will be followed up outpatient with pulmonology where as needed effusion can be reached drain for cytology and workup. Patient needs urgent follow up with pulmonology outpatient. Pleural fluid workup appears to be transudative by protein. Serum LDH was not measured. - prior to discharge microbiology reports that pleural fluid is still available, cytology order placed., patient has concern for noncompliance we will place social order for home health with medication management. Patient has discharge plan for azithromycin 500 mg for 5 days, urgent follow up with pulmonology, albuterol inhaler prn for shortness of breath, home health for medication management. - discharge was canceled patient was weak while working with PT. We will get orthostatic vitals, give IV fluids 500 cc bolus, continuing diet. Patient likely needs PT sniff rehab, we will follow up with PT. -12/30: We will do orthostatic vitals, PT. Patient might need rehab, pending re-evaluation by physical therapy. Plan with pulmonology and medical therapy plan for outpatient remains the same as yesterday. I think patient needs sniff rehab PT, but patient really wants to go home, so we can meet prison into home health PT, waiting for PT recommendations. We will also need to do another room air ABG after ambulation, I think patient is still needs ambulatory oxygen. And waiting for orthostatic vitals, appreciate RT PT and RN help in getting these objective findings. - per PT eval today patient was stronger, no further episodes of presyncope. Waiting for ABG room air with ambulation. - ABG room air showing no need for oxygen even with ambulation. Proceed with discharge today. Diagnosis: Acute hypoxic respiratory failure, , resolved Right Pleural effusion, transudative, status post thoracentesis Pneumonia, community-acquired, possible, Gram-negative/g positive possible Multiloculated effusions right lobe Chronic diastolic heart failure without exacerbation with EF 60% Peripheral artery disease likely Rate controlled persistent atrial fibrillation CLL on Calqu[place] CKD 3B, ARBEN ruled out Chronic pain Hypothyroidism Vitamin-D deficiency Ruled out DVT Hyperbilirubinemia, resolved History tobacco abuse Plan: , appreciate pulmonology follow up and following Continue medications for AFib, home meds furosemide aspirin amlodipine, Lovenox therapeutic PT eval appreciate following Gabapentin 100 mg b.i.d. Synthroid home dose Med surge Full code Plan discussed with: Patient My Orders Orders - CHARISSE DURAND MD Procedure Category Date Status Time Abg W/ Co-Ox RT 12/29/24 Logged 11:50 * Recovery Agent CONS 12/29/24 Transmitted Consult Cytology MICHEL 12/29/24 Transmitted 13:58 Orthostatic Vital ORDERS 12/29/24 Transmitted Signs 14:14 Date of Service: Dec 30, 2024 Billing Provider: CHARISSE DURAND MD Common Visit Codes: [id number] INP/OBS CARE(HIGH) CHARISSE DURAND MD Dec 30, 2024 08:26
[2024-12-30 10:06] LABS: Base Excess 0.9 mmol/L (-2.0-3.0)
--- NOTE | 2024-12-30 10:27 | DVHPN2 ---
Reviewed: H&P General: Per HPI Objective Vitals Vital Signs Date Time Temp Pulse Resp B/P (MAP) Pulse Ox O2 Delivery O2 Flow Rate FiO2 12/30/24 08:00 Nasal Cannula* 2 28 12/30/24 05:00 97.5 60 16 117/75 (89) 97 97.5 Intake/Output Intake and Output 12/30/24 07:00 Intake Total 1130 ml Balance 1130 ml Intake Oral 1080 ml IV Total 50 ml # Voids 5 # Bowel Movements 1 Exam General: Patient alert and oriented in person, place and time. Patient following commands. HEENT: Normocephalic, atraumatic, moist mucous membranes Respiratory/pulmonary: Reduced breath sounds in right lower lung bennett. Cardiovascular: Normal heart sounds S1 and S2 with no associated murmurs Abdomen: Abdomen nondistended, there is no pain to palpation in any of the abdominal quadrants, no palpable masses. Extremities: Grade 2 pitting edema on heel and distal dorsal left foot. Grade 2 Pitting edema on right dorsal foot Peripheral Pulses: 3+ Radial (R). 3+ Radial (L). 3+ Dorsalis pedis (R). 3+ Dorsalis pedis(L) Skin: No rashes or pruritus, there is no sacral edema present at this time. Neurological: Intact cranial nerves with no focal neurologic deficits Medications Current Medications Medications Dose Ordered Sig/Adina Route Start Time Stop Time Status Last Admin Dose Admin Acetaminophen/ Hydrocodone Bitart 1 tab Q4HP PRN PO 12/26/24 22:00 12/27/24 01:48 1 TAB Ondansetron HCl 4 mg Q4HP PRN IV 12/26/24 22:00 12/27/24 02:57 4 MG Morphine Sulfate 2 mg Q4HPRN PRN IV 12/26/24 22:00 Amiodarone HCl 200 mg DAILY PO 12/27/24 10:00 12/29/24 10:44 200 MG Tamsulosin HCl 0.8 mg QPM PO 12/27/24 18:00 12/29/24 17:36 0.8 MG Tramadol HCl 50 mg TID PO 12/27/24 06:00 12/30/24 05:31 50 MG Atorvastatin Calcium 40 mg DAILY PO 12/27/24 10:00 12/29/24 10:42 40 MG Levothyroxine Sodium 200 mcg QAM@0600 PO 12/27/24 06:00 12/30/24 05:31 200 MCG Ergocalciferol 50,000 unit Q7D PO 12/27/24 10:00 12/27/24 10:57 50,000 UNIT Aspirin 81 mg DAILY PO 12/27/24 10:00 12/29/24 10:42 81 MG Ceftriaxone Sodium 50 ml @ 100 mls/hr DAILY@09 IV 12/27/24 15:30 12/30/24 09:29 100 MLS/HR Azithromycin 250 ml @ 125 mls/hr DAILY IV 12/27/24 15:30 12/29/24 10:34 125 MLS/HR Gabapentin 100 mg BID PO 12/27/24 22:00 12/29/24 21:28 100 MG Enoxaparin Sodium 80 mg Q12HR SC 12/27/24 22:00 12/29/24 21:29 80 MG Furosemide 20 mg DAILY PO 12/28/24 10:15 12/29/24 10:44 20 MG Metoprolol Succinate 25 mg DAILY PO 12/28/24 10:12/29/24 10:41 25 MG Patient Own Medication 1 BID PO 12/29/24 10:00 12/29/24 21:27 1 Laboratory Results Laboratory Tests 12/30/24 05:07 Chemistry Test 12/30/24 05:07 Albumin 3.7 g/dL (3.2-4.8) Calcium Level 8.3 mg/dL (8.7-10.4) L Total Protein 5.8 g/dL (5.7-8.2) LFT Test 12/30/24 05:07 Alanine Aminotransferase (ALT) < 9 U/L (7-40) Alkaline Phosphatase 101 U/L (46-116) Aspartate Amino Transferase (AST) 13 U/L (13-40) Total Bilirubin 0.4 mg/dL (0.2-1.0) Urinalysis Test 12/27/24 11:22 Urine Color Yellow (Yellow) Urine Clarity Clear (Clear) Urine pH 5.0 (5.0-9.0) Urine Specific [place] 1.022 (1.001-1.035) Urine Protein Negative (Negative) Urine Ketones Negative (Negative) Urine Blood Negative /uL (Negative) Urine Nitrite Negative (Negative) Urine Bilirubin Negative (Negative) Urine Urobilinogen Normal mg/dL (Negative) Urine Leukocyte Esterase Trace /uL (Negative) Urine RBC 2 /hpf (0 - 3) Urine Microscopic WBC < 1 /HPF (0-3) Urine Squamous Epithelial Cells Few /hpf (<5) Urine Bacteria None seen /hpf (None Seen) Urine Hyaline Casts Mod /lpf (0 - 2) Urine Mucus Few (None Seen) Urine Glucose Normal mg/dL (Normal) Blood Gas Results Test 12/29/24 12:14 12/30/24 10:00 Arterial Blood pH 7.380 (7.350-7.450) 7.394 (7.350-7.450) FiO2 % 21.0 21.0 Microbiology Microbiology Date/Time Source Procedure Growth Status 12/27/24 03:25 Pleural Fluid Gram Stain - Final Resulted 12/27/24 03:25 Pleural Fluid Body Fluid Culture - Preliminary Resulted 12/27/24 01:00 Nose MRSA Screen - Final Complete 12/26/24 22:38 Blood Blood Culture - Preliminary NO GROWTH AFTER 72 HOURS OF INCUBATION. Resulted Assessment/Plan Assessment/Plan 84-year-old male with past medical history of atrial fibrillation (not on anticoagulation due to chronic thrombocytopenia), HFpEF with EF 60%, CLL, CKD 3A, Hypothyroidism, hypertension presented to the ER with chief complain of generalized body pain and thigh pain. Patient complained of right-sided thigh pain, which started suddenly around midnight, radiating up to the back, pain was described as achy, 8/10, worsens when he tries to lie down, improves on standing up. He denies fever, chills. 12/27: Patient complain of lower extremity pain, he had extensive including chewing which she platelets 40 years ago but during use he was heavy use of smoking. We will consult pulmonology for pleural effusion, repeat chest x-ray, initial results from thoracentesis shows traumatic tap? , we will get arterial ultrasound bilateral. Patient has significant hearing loss due to age. Start gabapentin. PT. Start antibiotics in case this is pneumonia. 12/28: Pulmonology evaluated patient today, we will get CT chest without contrast, bedside ultrasound with pulmonology showing no residual effusion. On day 1 admitting team removed approximately 500 cc fluid, labs still pending but initial colostomy showing a lot of blood/traumatic tap? . The bedside Doppler, patient has dopplerable pulses, likely still has PID and we will need outpatient workup with PCP. We will continue to encourage working with PT. Of note with thoracentesis, cytology was not sent. 12/29: Patient does not on oxygen, room air ABG showing no oxygen requirement. Pulmonology following showing no reaccumulation of fluid. CT showing loculated effusions. Cytology was not sent. Discussed with pulmonology patient will be followed up outpatient with pulmonology where as needed effusion can be reached drain for cytology and workup. Patient needs urgent follow up with pulmonology outpatient. Pleural fluid workup appears to be transudative by protein. Serum LDH was not measured. - prior to discharge microbiology reports that pleural fluid is still available, cytology order placed., patient has concern for noncompliance we will place social order for home health with medication management. Patient has discharge plan for azithromycin 500 mg for 5 days, urgent follow up with pulmonology, albuterol inhaler prn for shortness of breath, home health for medication management. - discharge was canceled patient was weak while working with PT. We will get orthostatic vitals, give IV fluids 500 cc bolus, continuing diet. Patient likely needs PT sniff rehab, we will follow up with PT. 12/30: We will do orthostatic vitals, PT. Patient might need rehab, pending re-evaluation by physical therapy. Plan with pulmonology and medical therapy plan for outpatient remains the same as yesterday. I think patient needs sniff rehab PT, but patient really wants to go home, so we can meet long term into home health PT, waiting for PT recommendations. We will also need to do another room air ABG after ambulation, I think patient is still needs ambulatory oxygen. And waiting for orthostatic vitals, appreciate RT PT and RN help in getting these objective findings. --per PT eval today patient was stronger, no further episodes of presyncope. Waiting for ABG room air with ambulation. -ABG room air showing no need for oxygen even with ambulation. Proceed with discharge today. Diagnosis: Acute hypoxic respiratory failure, , resolved Right Pleural effusion, transudative, status post thoracentesis Pneumonia, community-acquired, possible, Gram-negative/g positive possible Multiloculated effusions right lobe Chronic diastolic heart failure without exacerbation with EF 60% Peripheral artery disease likely Rate controlled persistent atrial fibrillation CLL on [place] CKD 3B, ARBEN ruled out Chronic pain Hypothyroidism Vitamin-D deficiency Ruled out DVT Hyperbilirubinemia, resolved History tobacco abuse Plan: , appreciate pulmonology follow up and following Continue medications for AFib, home meds furosemide aspirin amlodipine, Lovenox therapeutic PT eval appreciate following Gabapentin 100 mg b.i.d. Synthroid home dose Med surge Full code My Orders Orders - CHARISSE DURAND MD Procedure Category Date Status Time Abg W/ Co-Ox RT 12/29/24 Logged 11:50 * Circulation Librarian CONS 12/29/24 Transmitted Consult Cytology MICHEL 12/29/24 Transmitted 13:58 Orthostatic Vital ORDERS 12/29/24 Transmitted Signs 14:14 Abg W/ Co-Ox RT 12/30/24 Logged 08:55 CHARISSE DURAND MD Dec 30, 2024 10:27
--- NOTE | 2024-12-30 12:10 | DVHDS2 ---
Discharge Summary Date of Admission Dec 26, 2024 at 21:48 Date of Discharge: Dec 29, 2024 Labs/Diagnostic Data: Laboratory Results Test 12/30/24 10:00 12/30/24 05:07 12/27/24 11:22 12/27/24 03:25 Blood Gas Specimen Type Arterial Blood Gas Sample Site Right radial Blood Gas Patient Temperature 37.0 Arterial Blood Date Drawn [id number] Arterial Blood pH 7.394 (7.350-7.450) Arterial Blood Partial Pressure CO2 43.7 mmHg (35.0-48.0) Arterial Blood Partial Pressure O2 59.2 mmHg (83.0-108.0) Arterial Blood HCO3 26.1 mmol/L (21.0-28.0) Arterial Blood Oxygen Saturation 90.2 % (94.0-98.0) Arterial Blood Base Excess 0.9 mmol/L (-2.0-3.0) Arterial Blood Oxyhemoglobin 89.2 % (94.0-98.0) Arterial Blood Carboxyhemoglobin 0.7 % (0.5-1.5) Arterial Blood Methemoglobin 0.4 % (0.0-1.5) [place]en Test Yes Blood Gas Total Hemoglobin 12.30 g/dL (13.5-17.5) Blood Gas Modality Room air FiO2 % 21.0 White Blood Count 7.8 10^3/uL (4.4-10.8) Red Blood Count 3.96 10^6/uL (4.5-5.90) Hemoglobin 11.0 g/dL (13.5-17.5) Hematocrit 33.4 % (41.0-53.0) Mean Corpuscular Volume 84.2 fL (80.0-100.0) Mean Corpuscular Hemoglobin 27.8 pg (28.0-32.0) Mean Corpuscular Hemoglobin Concent 32.9 g/dL (32.0-36.0) Red Cell Distribution Width 16.3 % (11.8-14.3) Platelet Count 142 10^3/uL (140-450) Mean Platelet Volume 7.8 fL (6.9-10.8) Neutrophils (%) (Auto) 43.7 % (37.0-80.0) Lymphocytes (%) (Auto) 47.6 % (10.0-50.0) Monocytes (%) (Auto) 7.6 % (0.0-12.0) Eosinophils (%) (Auto) 0.8 % (0.0-7.0) Basophils (%) (Auto) 0.3 % (0.0-2.0) Neutrophils # (Auto) 3.4 10 ^3/uL (1.6-8.6) Lymphocytes # (Auto) 3.7 10 ^3/uL (0.4-5.4) Monocytes # (Auto) 0.6 10 ^3/uL (0-1.3) Eosinophils # (Auto) 0.1 10 ^3/uL (0-0.8) Basophils # (Auto) 0 10 ^3/uL (0-0.2) Nucleated Red Blood Cells 0.1 % Sodium Level 141 mmol/L (136-145) Potassium Level 4.5 mmol/L (3.5-5.1) Chloride Level 102 mmol/L (98-107) Carbon Dioxide Level 31 mmol/L (20-31) Anion Gap 8 (5-15) Blood Urea Nitrogen 23 mg/dL (9-23) Creatinine 1.59 mg/dL (0.700-1.30) Glomerular Filtration Rate Calc 42 mL/min (>90) BUN/Creatinine Ratio 14.5 (10.0-20.0) Serum Glucose 94 mg/dL (74-106) Calcium Level 8.3 mg/dL (8.7-10.4) Total Bilirubin 0.4 mg/dL (0.2-1.0) Aspartate Amino Transferase (AST) 13 U/L (13-40) Alanine Aminotransferase (ALT) < 9 U/L (7-40) Alkaline Phosphatase 101 U/L (46-116) Total Protein 5.8 g/dL (5.7-8.2) Albumin 3.7 g/dL (3.2-4.8) Urine Color Yellow (Yellow) Urine Clarity Clear (Clear) Urine pH 5.0 (5.0-9.0) Urine Specific [place] 1.022 (1.001-1.035) Urine Protein Negative (Negative) Urine Ketones Negative (Negative) Urine Blood Negative /uL (Negative) Urine Nitrite Negative (Negative) Urine Bilirubin Negative (Negative) Urine Urobilinogen Normal mg/dL (Negative) Urine Leukocyte Esterase Trace /uL (Negative) Urine RBC 2 /hpf (0 - 3) Urine Microscopic WBC < 1 /HPF (0-3) Urine Squamous Epithelial Cells Few /hpf (<5) Urine Bacteria None seen /hpf (None Seen) Urine Hyaline Casts Mod /lpf (0 - 2) Urine Mucus Few (None Seen) Urine Glucose Normal mg/dL (Normal) Urine Opiates Screen Pos (NEGATIVE) Urine Fentanyl Screen Neg (NEGATIVE) Urine Barbiturates Screen Neg (NEGATIVE) Urine Phencyclidine Screen Neg (NEGATIVE) Urine Amphetamines Screen Neg (NEGATIVE) Urine Benzodiazepines Screen Neg (NEGATIVE) Urine Cocaine Screen Neg (NEGATIVE) Urine Cannabinoids Screen Neg (NEGATIVE) Body Fluid Source Pleural fluid Body Fluid pH 8.0 Body Fluid WBC (Manual) 0 CUMM (0-200) Body Fluid RBC (Manual) 03397 CUMM (0-2000) Body Fluid Mononuclear Cells % Body Fluid Polymorphonuclear Cells % (0-25) Body Fluid Glucose 42 mg/dL (.) Body Fluid Total Protein 3.5 g/dL (.) Body Fluid Albumin 1.9 g/dL (Not Estab.) Body Fluid Lactate Dehydrogenase 1626 IU/L (.) Test 12/26/24 20:44 12/26/24 16:50 12/26/24 15:59 12/26/24 15:38 Prothrombin Time 10.7 sec (9.3-11.8) Prothrombin Time INR 1.01 (0.9-1.15) Activated Partial Thromboplast Time 25.5 SEC (24.5-34.5) D-Dimer, Quantitative 3.14 mg/L FEU (0.0-0.49) Direct Bilirubin 0.3 mg/dL (<0.3) Troponin I High Sensitivity 5 ng/L (</=54) Hemoglobin A1c 5.4 % A1C (<5.7) Lactic Acid Level 1.5 mmol/L (0.4-2.0) Phosphorus Level 3.4 mg/dL (2.4-5.1) Magnesium Level 2.1 mg/dL (1.6-2.6) C-Reactive Protein High Sensitivity 0.92 mg/dL (<1.0) B-Type Natriuretic Peptide 278.37 pg/mL (0-100) Triglycerides Level 123 mg/dL (< 150) Cholesterol Level 115 mg/dL (< 200) LDL Cholesterol 64 mg/dL (< 100) HDL Cholesterol 35 mg/dL (40-59) Lipase 28 U/L (12-53) Vitamin B12 Level 458 pg/mL (211-911) Vitamin D 25-Hydroxy 19.0 ng/mL (30.0-100) Thyroid Stimulating Hormone (TSH) 3.87 uIU/mL (0.55-4.78) Influenza Type A Antigen Negative (Negative) Influenza Type B Antigen Negative (Negative) SARS-CoV-2 Antigen (Rapid) Negative (NEGATIVE) Other Laboratory Tests 12/30/24 05:07 Brief Hx & Hospital Course: 84-year-old male with past medical history of atrial fibrillation (not on anticoagulation due to chronic thrombocytopenia), HFpEF with EF 60%, CLL, CKD 3A, Hypothyroidism, hypertension presented to the ER with chief complain of generalized body pain and thigh pain. Patient complained of right-sided thigh pain, which started suddenly around midnight, radiating up to the back, pain was described as achy, /10, worsens when he tries to lie down, improves on standing up. He denies fever, chills. -12/27: Patient complain of lower extremity pain, he had extensive including chewing which she platelets 40 years ago but during use he was heavy use of smoking. We will consult pulmonology for pleural effusion, repeat chest x-ray, initial results from thoracentesis shows traumatic tap? , we will get arterial ultrasound bilateral. Patient has significant hearing loss due to age. Start gabapentin. PT. Start antibiotics in case this is pneumonia. -12/28: Pulmonology evaluated patient today, we will get CT chest without contrast, bedside ultrasound with pulmonology showing no residual effusion. On day 1 admitting team removed approximately 500 cc fluid, labs still pending but initial colostomy showing a lot of blood/traumatic tap? . The bedside Doppler, patient has dopplerable pulses, likely still has PID and we will need outpatient workup with PCP. We will continue to encourage working with PT. Of note with thoracentesis, cytology was not sent. -12/29: Patient does not on oxygen, room air ABG showing no oxygen requirement. Pulmonology following showing no reaccumulation of fluid. CT showing loculated effusions. Cytology was not sent. Discussed with pulmonology patient will be followed up outpatient with pulmonology where as needed effusion can be reached drain for cytology and workup. Patient needs urgent follow up with pulmonology outpatient. Pleural fluid workup appears to be transudative by protein. Serum LDH was not measured. - prior to discharge microbiology reports that pleural fluid is still available, cytology order placed., patient has concern for noncompliance we will place social order for home health with medication management. Patient has discharge plan for azithromycin 500 mg for 5 days, urgent follow up with pulmonology, albuterol inhaler prn for shortness of breath, home health for medication management. - discharge was canceled patient was weak while working with PT. We will get orthostatic vitals, give IV fluids 500 cc bolus, continuing diet. Patient likely needs PT sniff rehab, we will follow up with PT. -12/30: We will do orthostatic vitals, PT. Patient might need rehab, pending re-evaluation by physical therapy. Plan with pulmonology and medical therapy plan for outpatient remains the same as yesterday. I think patient needs sniff rehab PT, but patient really wants to go home, so we can meet custodial into home health PT, waiting for PT recommendations. We will also need to do another room air ABG after ambulation, I think patient is still needs ambulatory oxygen. And waiting for orthostatic vitals, appreciate RT PT and RN help in getting these objective findings. - per PT eval today patient was stronger, no further episodes of presyncope. Waiting for ABG room air with ambulation. - ABG room air showing no need for oxygen even with ambulation. Proceed with discharge today. Diagnosis: Acute hypoxic respiratory failure, , resolved Right Pleural effusion, transudative, status post thoracentesis Pneumonia, community-acquired, possible, Gram-negative/g positive possible Multiloculated effusions right lobe Chronic diastolic heart failure without exacerbation with EF 60% Rate controlled persistent atrial fibrillation CLL on [place] CKD 3B, ARBEN ruled out Chronic pain Hypothyroidism Vitamin-D deficiency Ruled out DVT Hyperbilirubinemia, resolved plan: - urgent follow up with pulmonology - continue azithromycin 500 mg daily for 5 days - albuterol inhaler as needed for shortness of breath - FWW for ambulation. Home health with home PT. - home health for medication management - continue other home medications - Follow up with PCP to review discharge Condition at Discharge: Fair Final Diagnosis/Problems List Acute hypoxic respiratory failure, , resolved Right Pleural effusion, transudative, status post thoracentesis Pneumonia, community-acquired, possible, Gram-negative/g positive possible Multiloculated effusions right lobe Chronic diastolic heart failure without exacerbation with EF 60% Rate controlled persistent atrial fibrillation CLL on [place] CKD 3B, ARBEN ruled out Chronic pain Hypothyroidism Vitamin-D deficiency Ruled out DVT Hyperbilirubinemia, resolved Discharge Disposition: Home Discharge Instruct/Medications Diet: Cardiac 2g Na,low cholest Activity: No Restrictions, As Tolerated Follow Up/Referral: See below Medications: See below Scheduled Amiodarone Hcl (Amiodarone Hcl), 1 TAB PO DAILY Atorvastatin Calcium (Atorvastatin Calcium), 1 TAB PO DAILY, (Reported) Azithromycin (Azithromycin), 1 TAB PO DAILY Citalopram Hydrobromide (Citalopram Hydrobromide), 10 MG PO DAILY, (Reported) Furosemide (Furosemide), 1 TAB PO BID, (Reported) Gabapentin (Gabapentin), 1 CAP PO BID, (Reported) Levothyroxine Sodium (Synthroid), 12.5 MG PO DAILY, (Reported) Metoprolol Succinate (Metoprolol Succinate Er), 100 MG PO DAILY, (Reported) Patients Own Medication (Patients Own Medication), 1 TAB PO UD, (Reported) Tamsulosin Hcl (Tamsulosin Hcl), 1 CAP PO DAILY, (Reported) Tramadol Hcl (Tramadol Hcl), 50 MG PO TID, (Reported) Scheduled PRN Albuterol Sulfate (Ventolin Mdi), 90 MCG IN TIDP PRN Discharge Statement: "Patient was advised to return to the ER or call 911 if any headaches, dizziness, shortness of breath, chest pain, abdominal pain, bleeding, fevers, or worsening of medical condition. Patient was counseled about treatment plan, medications, possible side effects, patientverbalized understanding. All questions were answered to the best of my ability. This discharge took greater then 30 minutes in planning, reviewing documentation, counseling the patient, and discussing with other team members." Date of Service: Dec 30, 2024 Billing Provider: CHARISSE DURAND MD Common Visit Codes: 31884-NTD/OBS DISCH DAY >30min CHARISSE DURAND MD Dec 30, 2024 12:10
[2024-12-30 14:23] VITALS: BP 103/70; PULSE 70; TEMP 36.4; O2SAT 96
--- NOTE | 2024-12-30 15:01 | DVHPN2 ---
Progress Note - Dictate Date Seen: Dec 30, 2024 Medical Necessity Reason Pt with a Central, PICC or Fol: No vital signs Vital Sign Date Time Temp Pulse Resp B/P (MAP) Pulse Ox O2 Delivery O2 Flow Rate FiO2 12/30/24 14:23 36.4 70 96 12/30/24 11:11 103/70 12/30/24 08:00 Nasal Cannula* 2 28 12/30/24 05:00 16 Total Intake and Output 12/29/24 12/29/24 12/30/24 15:00 23:00 07:00 Intake Total 290 ml 360 ml 480 ml Balance 290 ml 360 ml 480 ml medications Current Medications Medications Dose Ordered Sig/Adina Route Start Time Stop Time Status Last Admin Dose Admin Acetaminophen/ Hydrocodone Bitart 1 tab Q4HP PRN PO 12/26/24 22:00 12/27/24 01:48 1 TAB Ondansetron HCl 4 mg Q4HP PRN IV 12/26/24 22:00 12/27/24 02:57 4 MG Morphine Sulfate 2 mg Q4HPRN PRN IV 12/26/24 22:00 Amiodarone HCl 200 mg DAILY PO 12/27/24 10:00 12/30/24 11:11 200 MG Tamsulosin HCl 0.8 mg QPM PO 12/27/24 18:00 12/29/24 17:36 0.8 MG Tramadol HCl 50 mg TID PO 12/27/24 06:00 12/30/24 14:17 50 MG Atorvastatin Calcium 40 mg DAILY PO 12/27/24 10:00 12/30/24 11:12 40 MG Levothyroxine Sodium 200 mcg QAM@0600 PO 12/27/24 06:00 12/30/24 05:31 200 MCG Ergocalciferol 50,000 unit Q7D PO 12/27/24 10:00 12/27/24 10:57 50,000 UNIT Aspirin 81 mg DAILY PO 12/27/24 10:00 12/30/24 11:11 81 MG Ceftriaxone Sodium 50 ml @ 100 mls/hr DAILY@09 IV 12/27/24 15:30 12/30/24 09:29 100 MLS/HR Azithromycin 250 ml @ 125 mls/hr DAILY IV 12/27/24 15:30 12/30/24 11:00 125 MLS/HR Gabapentin 100 mg BID PO 12/27/24 22:00 12/30/24 11:12 100 MG Enoxaparin Sodium 80 mg Q12HR SC 12/27/24 22:00 12/30/24 11:13 80 MG Furosemide 20 mg DAILY PO 12/28/24 10:15 12/29/24 10:44 20 MG Metoprolol Succinate 25 mg DAILY PO 12/28/24 10:15 12/30/24 11:11 25 MG Patient Own Medication 1 BID PO 12/29/24 10:00 12/30/24 10:00 1 laboratory and microbiology Laboratory Tests 12/30/24 05:07 Test 12/30/24 05:07 Range/Units Serum Glucose 94 74-106 mg/dL Assessment/Plan Impression Acute hypoxemic respiratory failure Right pleural effusions Former smoker Atelectasis ARBEN Patient seen and examined Events Low oxygen requirements On 2 liters nasal cannula No acute events S/p thoracentesis Labs and imaging reviewed Management Supplemental oxygen Titrate to maintain sats 90% or above Incentive spirometry Continue antibiotics Bronchodilators Monitor renal function F/u nephrology Monitor electrolytes Supplement as needed Echo reports reviewed F/u cardiology DVT prophylaxis Plan discussed with: Patient JESSICA ELIZALDE MD Dec 30, 2024 15:01
== END 2024-12-30 16:50 | disposition home health service (06) | DRG 177 ==
LOC: ER 15:06 → OVERFLOW 21:48 → EAST 12-27 03:49
PROVIDERS: ADMIT Student in an Organized Health Care Education/Training Program; ATTEND Student in an Organized Health Care Education/Training Program
PROC: 0W993ZZ Drainage of Right Pleural Cavity, Percutaneous Approach (ICD-10-PCS; principal; 2024-12-28)
DX: J15.69 Pneumonia due to other Gram-negative bacteria (principal); J96.01 Acute respiratory failure with hypoxia; I13.0 Hypertensive heart and chronic kidney disease with heart failure and stage 1 through stage 4 chronic kidney disease, or unspecified chronic kidney disease; C91.10 Chronic lymphocytic leukemia of B-cell type not having achieved remission; J91.8 Pleural effusion in other conditions classified elsewhere; J98.11 Atelectasis; I48.21 Permanent atrial fibrillation; I50.32 Chronic diastolic (congestive) heart failure; J18.9 Pneumonia, unspecified organism; Z20.822 Contact with and (suspected) exposure to COVID-19; E55.9 Vitamin D deficiency, unspecified; E03.9 Hypothyroidism, unspecified; G89.29 Other chronic pain; E80.6 Other disorders of bilirubin metabolism; K44.9 Diaphragmatic hernia without obstruction or gangrene; N18.32 Chronic kidney disease, stage 3b; E78.5 Hyperlipidemia, unspecified; F32.A Depression, unspecified; D69.6 Thrombocytopenia, unspecified; M79.606 Pain in leg, unspecified; Z87.891 Personal history of nicotine dependence; Z91.040 Latex allergy status
CPT/HCPCS: 36415; 36600; 71045; 71250; 76604; 80048; 80053; 80061; 80307; 81001; 82247; 82248; 82306; 82607; 82805; 83036; 83605; 83690; 83735; 83880; 83986; 84100; 84443; 84484; 85025; 85379; 85610; 85730; 86141; 87040; 87071; 87081; 87205; 87426; 87804; 89051; 93005; 93306; 93971; 96360; 97110; 97116; 97163; 97530; G0378; J2405